=== PATIENT | female | born 1945 | race Caucasian/White ===

== ENCOUNTER → 2018-01-22 | Outpatient (CLI) | payer MEDICARE ==
--- NOTE | 2018-01-22 15:07 | XR ---
EXAMINATION TYPE: XR lumbosacral spine min 4V DATE OF EXAM: 01/22/2018 COMPARISON: NONE HISTORY: Thoracic and low back pain TECHNIQUE: Five-view lumbar spine FINDINGS: Facet degenerative changes are present. Vascular calcifications within the aorta. There is narrowing of disc height posteriorly at L3-L4. Milder posterior disc space narrowing is present L2-3 and L1-2. Vertebral body heights are preserved. Alignment is normal. IMPRESSION: 1. Degenerative disc changes mid lumbar spine
--- NOTE | 2018-01-22 15:09 | XR ---
EXAMINATION TYPE: XR thoracic spine complete DATE OF EXAM: 01/22/2018 COMPARISON: Rib study 08/04/2017 HISTORY: Thoracic spine pain TECHNIQUE: Three-view thoracic spine FINDINGS: There are 12 thoracic type vertebral bodies. The pedicles are intact. Disc heights are pres erved. There is mild wedge deformity of T7. This is not clearly identified on the July 2017 jun rison image. This was not present on the lateral chest film of 05/03/2013. Remaining vertebral body hei ghts are preserved. IMPRESSION: 1. Wedge deformity without posterior wall displacement T7. This may be an interval finding from 07/25.
== END | disposition home or self-care (01) ==
LOC: RADXRYALE 11:09
PROVIDERS: ATTEND Internal Medicine
DX: M43.8X4 Other specified deforming dorsopathies, thoracic region (principal); M47.816 Spondylosis without myelopathy or radiculopathy, lumbar region
CPT/HCPCS: 72072; 72110

== ENCOUNTER → 2018-02-10 | Outpatient (CLI) | payer MEDICARE ==
--- NOTE | 2018-02-10 14:30 | NM ---
EXAMINATION TYPE: NM bone scan whole body DATE OF EXAM: 02/10/2018 COMPARISON: 01/22/2018 thoracic and lumbar spine radiographs HISTORY: Thoracic compression deformity of T7. Back pain. Delayed whole-body scanning was performed following the injection of 22.9 mCi Tc 99m MDP. Images acq uired at the appropriate time interval post injection. FINDINGS: There is focal radiotracer uptake within the T7 vertebral body corresponding to the compression defor mity seen on the radiographs of 01/22/2018 representing an acute/subacute fracture. Additional focal u ptake is seen at the costochondral junction of the approximately ninth rib on the right and may relat e to costochondritis. Linear uptake along the tibia bilaterally can be seen in hypertrophic pulmonary osteoarthropathy. Symmetric uptake within the glenohumeral joints, sternoclavicular joints, acromioc lavicular joints, sacroiliac joints, hips, and knees are most commonly on a degenerative basis. Focal uptake within the left lateral L5 vertebral body is seen in the posterior images only. IMPRESSION: 1. Focal abnormal uptake at T7 corresponding to the compression deformity on the exam of 01/22/2018 re presenting an acute/subacute fracture. 2. Focal uptake at approximately the ninth costochondral cartilage on the right that may represent co stochondritis. 3. Mild focal uptake within the left lateral L5 vertebral body with no correlate on the lumbar spine radiograph of 01/22/2018. CT or MR could be considered if there is further clinical concern. 4. Mild symmetric degenerative changes of the appendicular skeleton. 5. Linear uptake of the tibia that can be seen in hypertrophic pulmonary osteoarthropathy.
== END | disposition home or self-care (01) ==
LOC: RADNMMAIN 09:56
PROVIDERS: ATTEND Physical Medicine & Rehabilitation
DX: R94.8 Abnormal results of function studies of other organs and systems (principal); M85.80 Other specified disorders of bone density and structure, unspecified site
CPT/HCPCS: 78306; A9503

== ENCOUNTER → 2018-09-02 | Outpatient (CLI) | payer MEDICARE ==
--- NOTE | 2018-09-06 13:49 | MM ---
Reason for exam: screening (asymptomatic). Last mammogram was performed 1 year and 1 month ago. History: Patient is postmenopausal. MG 3D Screening Mammo W/Cad Bilateral CC and MLO view(s) were taken. Prior study comparison: July 29, 2017, bilateral MG screening mammo w CAD. July 23, 2016, bilateral MG 3d screening mammo w/cad. There are scattered fibroglandular densities. Anterior asymetric density just below the retroareolar plane on the right appears to localize to the skin on 3D. Correlate for possible lateral mole. A 6 month follow up is recommended. ASSESSMENT: Probably benign, BI-RAD 3 RECOMMENDATION: Follow-up diagnostic mammogram of the right breast in 6 months. LYNN
== END | disposition home or self-care (01) ==
LOC: RADMAMWWP 13:05
PROVIDERS: ATTEND Internal Medicine
DX: Z12.31 Encounter for screening mammogram for malignant neoplasm of breast (principal)
CPT/HCPCS: 77063; 77067

== ENCOUNTER 2018-09-17 11:21 | Day surgery (SDC) | payer MEDICARE ==
[2018-09-15 13:48] VITALS: BMI 29.2
[~2018-09-17 11:21] MED LIST: LACTATED RINGERS 1,000 ML IV SCH; LIDOCAINE 1% 20 ML VIAL (10MG/ML) FOR IV START INTRADERMA PRN
[2018-09-17 12:23] VITALS: TEMP 97.2
[2018-09-17] MEDS ORDERED: PROPOFOL 10 MG/ML 20 ML VIAL IV ONE (13:03)
[2018-09-17] MEDS ORDERED: LIDOCAINE 1% INJ 10MG/ML (20 ML MDV) ONE (13:03)
--- NOTE | 2018-09-17 13:42 | P.PCN ---
Date of Procedure: 09/17/18 Procedure(s) Performed: Procedure: 1. Esophagogastroduodenoscopy and biopsy. 2. Total colonoscopy. Preoperative diagnosis: Epigastric pain and rectal bleeding. Postoperative diagnosis: 1. Sliding hiatal hernia with no obvious esophagitis or complicated reflux disease. 2. Mild antral gastritis. 3. Sigmoid diverticulosis with no evidence of acute diverticulitis or strictures. 4. Low- grade internal hemorrhoids with no bleeding at the time of this exam. Preparation: HalfLytely prep. Sedation: Was provided by anesthesia. Brief clinical history: The patient is a 73-year-old female who is scheduled for this evaluation for the above reasons. She may have had an upper endoscopy several years back but she had no prior colonoscopy. The bleeding is described as fresh bleeding and rectum. She reports epigastric pain and regurgitation kind symptoms especially when she bends. No weight loss or other alarm symptoms. Procedure: With the patient on her left lateral decubitus position and after informed consent and adequate sedation, I passed a Olympus-GIF age 190 video upper endoscope through the cricopharyngeus down the esophagus. GE junction was around 36-37 cm from the incisors and there was a sliding hiatal hernia measuring between 2 and 3 cm. There was no obvious esophagitis or complicated reflux disease. The endoscope was then passed into the stomach which was insufflated with air and inspected in detail including the retroflex view in the cardia. There was some mottling and erythema in the antrum but no ulcers or erosions. Pyloric channel, duodenal bulb, post bulbar area and descending duodenum appeared within normal limits. Because of her symptoms, I obtained biopsies from the duodenum, antrum and esophagus then the endoscope was withdrawn and I proceeded with the colonoscopy. Perianal area did not show any fissures or fistulas. There were no masses felt on digital rectal examination. The Olympus CFH 190 and video colonoscope was then inserted in the rectum in the usual fashion and advanced to the cecum. There were multiple diverticular orifices seen scattered in the sigmoid but I saw no evidence of acute diverticulitis or strictures. The mucosa appeared healthy. No polyps or tumors were seen. I retroflexed the endoscope in the rectum before the endoscope was withdrawn. Low-grade internal hemorrhoids were noted with no evidence of. The patient tolerated the procedure well. Plan: The patient was reassured. Will await biopsy results. Discussed dietary measures and local care for hemorrhoids. Further plans based on her course. She will follow-up with you as planned and would be happy to see in the office if needed.
[2018-09-17 13:56] VITALS: BP 146/99; PULSE 69; RESP 18
== END 2018-09-17 14:17 | disposition home or self-care (01) ==
LOC: ORWHC2ENDO 11:21
DX: K29.50 Unspecified chronic gastritis without bleeding (principal); K44.9 Diaphragmatic hernia without obstruction or gangrene; M19.90 Unspecified osteoarthritis, unspecified site; K20.9 Esophagitis, unspecified; K57.30 Diverticulosis of large intestine without perforation or abscess without bleeding; K64.8 Other hemorrhoids; J44.9 Chronic obstructive pulmonary disease, unspecified; I10 Essential (primary) hypertension; E78.5 Hyperlipidemia, unspecified; Z86.73 Personal history of transient ischemic attack (TIA), and cerebral infarction without residual deficits; Z79.899 Other long term (current) drug therapy
CPT/HCPCS: 88305; 45378; 43239; J2001; J2704

== ENCOUNTER → 2019-03-18 | Outpatient (CLI) | payer MEDICARE ==
--- NOTE | 2019-03-18 14:47 | MM ---
Reason for exam: follow-up at short interval from prior study. Last mammogram was performed 7 months ago. History: Patient is postmenopausal. Physical Findings: Nurse did not find any significant physical abnormalities on exam. MG 3D Diag Mammo W/Cad RT CC and MLO view(s) were taken of the right breast. Prior study comparison: September 02, 2018, bilateral MG 3d screening mammo w/cad. July 29, 2017, bilateral MG screening mammo w CAD. The breast tissue is heterogeneously dense. This may lower the sensitivity of mammography. Benign appearing calcifications in the right breast. Stable right inferior breast asymmetry at anterior depth, possibly present on more remote exams. These results were verbally communicated with the patient and result sheet given to the patient on 03/18/19. ASSESSMENT: Probably benign, BI-RAD 3 RECOMMENDATION: Follow-up diagnostic mammogram of both breasts in 6 months. Back on schedule.
== END | disposition home or self-care (01) ==
LOC: RADMAMWWP 12:27 → EEVIPCON 13:00
PROVIDERS: ATTEND Internal Medicine
DX: R92.8 Other abnormal and inconclusive findings on diagnostic imaging of breast (principal)
CPT/HCPCS: 77065; G0279; 77061

== ENCOUNTER → 2019-10-15 | Outpatient (CLI) | payer MEDICARE ==
--- NOTE | 2019-10-18 09:03 | MM ---
Reason for exam: additional evaluation requested from prior study. Last mammogram was performed 7 months ago. History: Patient is postmenopausal. Physical Findings: Nurse did not find any significant physical abnormalities on exam. MG 3D Diag Mammo W/Cad ALEJANDRA Bilateral CC and MLO view(s) were taken. Prior study comparison: March 18, 2019, right breast MG 3d diag mammo w/cad RT. September 02, 2018, bilateral MG 3d screening mammo w/cad. The breast tissue is almost entirely fat. Focal asymmetry right subareolar medially, stable. No significant new findings when compared with previous films. These results were verbally communicated with the patient and result sheet given to the patient on 10/15/19. ASSESSMENT: Benign, BI-RAD 2 RECOMMENDATION: Routine screening mammogram of both breasts in 1 year.
== END | disposition home or self-care (01) ==
LOC: RADMAMWWP 12:32
PROVIDERS: ATTEND Internal Medicine
DX: R92.8 Other abnormal and inconclusive findings on diagnostic imaging of breast (principal)
CPT/HCPCS: 77066; G0279; 77062

== ENCOUNTER → 2020-03-20 | Outpatient (CLI) | payer MEDICARE ==
--- NOTE | 2020-03-20 11:32 | XR ---
EXAMINATION TYPE: XR knee limited RT DATE OF EXAM: 03/20/2020 CLINICAL HISTORY: pain TECHNIQUE: Three views of the right knee are obtained. COMPARISON: None. FINDINGS: There is no acute fracture/dislocation. The tri-compartment joint spaces appear within no rmal limits. The overlying soft tissue appears unremarkable. IMPRESSION: There is no acute fracture or dislocation.ICD 10 NO FRACTURE, INITIAL EVALUATION
--- NOTE | 2020-03-20 11:32 | XR ---
EXAMINATION TYPE: XR facial bones complete DATE OF EXAM: 03/20/2020 HISTORY: Pain trauma TECHNIQUE: Three views of the facial bones are submitted. FINDINGS: There is fracture noted to involve the nasal bone at its tip. No evidence for significant d isplacement or fracture depression. No additional fractures identified. No air-fluid levels within th e sinuses. Soft tissues are radiographically intact. IMPRESSION: There is fracture noted to involve the nasal bone at its tip. No evidence for significant displacement or fracture depression.
== END ==
LOC: RADXRYALE 10:59
PROVIDERS: ATTEND Internal Medicine
DX: S02.2XXA Fracture of nasal bones, initial encounter for closed fracture (principal)
CPT/HCPCS: 70150

== ENCOUNTER → 2020-04-11 | Outpatient (CLI) | payer MEDICARE ==
--- NOTE | 2020-04-11 16:20 | XR ---
EXAMINATION TYPE: XR ribs LT w pa chest xray DATE OF EXAM: 04/11/2020 COMPARISON: 08/04/2017 left RIBS with chest radiograph HISTORY: Left lower rib pain after strain injury yesterday TECHNIQUE: Frontal view of the chest and 4 images of the left ribs were obtained. FINDINGS: The cardiomediastinal silhouette is within normal limits for size. There is no focal air sp pat opacity, pleural effusion, or pneumothorax. There is osseous demineralization which decreases sen sitivity. No evidence of displaced rib fracture. Degenerative changes of the left shoulder. IMPRESSION: No evidence of displaced rib fracture.
== END | disposition home or self-care (01) ==
LOC: RADXRYALE 13:09
PROVIDERS: ATTEND Internal Medicine
DX: R07.81 Pleurodynia (principal)

== ENCOUNTER 2020-11-06 09:55 | Inpatient (IN) | payer MEDICARE ==
[2020-11-06] MEDS ORDERED: ALBUTEROL HFA INHALER INHALATION STA (10:55)
[2020-11-06 11:48] LABS: ALT 59 U/L (4-34); African American GFR (CKD) >90 (>60 ml/min/1.73 sqM); Albumin 3.8 g/dL (3.5-5.0); Anion Gap 6 mmol/L; Blood Urea Nitrogen 5 mg/dL (7-17); Calcium 8.8 mg/dL (8.4-10.2); Carbon Dioxide 26 mmol/L (22-30); Chloride 98 mmol/L (98-107); Glucose 103 mg/dL (74-99); Non-African American GFR(CKD) >90 (>60 ml/min/1.73 sqM); Sodium 130 mmol/L (137-145); Total Protein 6.4 g/dL (6.3-8.2)
--- NOTE | 2020-11-06 11:52 | XR ---
EXAMINATION TYPE: XR knee complete LT, XR tibia fibula LT, XR ankle complete LT DATE OF EXAM: 11/06/2020 CLINICAL HISTORY: Fall injury with pain and swelling. TECHNIQUE: Three views of the left ankle and knee are obtained. 2 views left tibia and fibula. COMPARISON: None. FINDINGS: There is no acute fracture/dislocation evident in left knee. Mild to moderate tricompartme nt joint space loss greatest medial tibiofemoral compartment. No significant spurring. Mild to moder ate diffuse subcutaneous edema. No acute fracture or dislocation in the left tibia or fibula. Mild to moderate diffuse subcutaneous e bryanna greatest along the lateral and posterior aspects. No acute fracture or dislocation in the left ankle. Focal moderate soft tissue swelling over the late ral malleolus. Mild to moderate diffuse subcutaneous edema. Ankle mortise symmetry is preserved. Mode rate to large size inferior calcaneal spur noted. IMPRESSION: There is no acute fracture or dislocation in the left ankle, leg, or knee.
[2020-11-06 11:54] LABS: Appearance,Urine Clear (Clear); Bacteria,Urine Rare /hpf; Bilirubin,Urine Negative (Negative); Blood,Urine Small (Negative); Color,Urine Light Yellow; Glucose,Urine (UA) Negative (Negative); Ketones,Urine Negative (Negative); Leukocyte Esterase,Urine Large (Negative); Mucus,Urine Rare /hpf; Nitrite,Urine Negative (Negative); Protein,Urine Negative (Negative); RBC,Urine 5 /hpf (0-5); Specific Gravity,Urine 1.004 (1.001-1.035); Squamous Epithelial Cell,Urine 2 /hpf (0-4); Urobilinogen,Urine <2.0 mg/dL (<2.0); WBC,Urine 7 /hpf (0-5)
[2020-11-06 11:58] LABS: Basophils % (A) 0 %; Eosinophils # (A) 0.1 k/uL (0-0.7); Eosinophils % (A) 1 %; HCT 38.8 % (34.0-46.0); HGB 13.4 gm/dL (11.4-16.0); Lymphocytes # (A) 0.8 k/uL (1.0-4.8); Lymphocytes % (A) 9 %; MCH 36.7 pg (25.0-35.0); MCHC 34.5 g/dL (31.0-37.0); MCV 106.2 fL (80.0-100.0); Macrocytosis Moderate; Mean Platelet Volume 9.3; Monocytes # (A) 0.4 k/uL (0-1.0); Monocytes % (A) 4 %; Neutrophils # (A) 7.8 k/uL (1.3-7.7); Neutrophils % (A) 86 %; Platelet Count 251 k/uL (150-450); RBC 3.65 m/uL (3.80-5.40); RDW 13.2 % (11.5-15.5); WBC 9.1 k/uL (3.8-10.6)
[2020-11-06 12:01] LABS: AST 53 U/L (14-36); Alkaline Phosphatase 85 U/L (38-126); Potassium 4.3 mmol/L (3.5-5.1)
--- NOTE | 2020-11-06 12:15 | US ---
EXAMINATION TYPE: US venous doppler duplex LE LT DATE OF EXAM: 11/06/2020 10:56 AM COMPARISON: NONE CLINICAL HISTORY: swelling, pain, sob. fall and hit left side a week ago, SOB now and tender left leg , no h/o dvt SIDE PERFORMED: Left TECHNIQUE: The lower extremity deep venous system is examined utilizing real time linear array sonog barry with graded compression, doppler sonography and color-flow sonography. VESSELS IMAGED: Common Femoral Vein Deep Femoral Vein Greater Saphenous Vein * Femoral Vein Popliteal Vein Small Saphenous Vein * Proximal Calf Veins (* superficial vessels) Left Leg: Negative for DVT Grayscale, color doppler, spectral doppler imaging performed of the deep veins of the left lower extr emity. There is normal flow, compressibility, vascular waveforms. IMPRESSION: No US for acute DVT in left lower extremity.
--- NOTE | 2020-11-06 12:48 | CT ---
EXAMINATION TYPE: CT brain mayra hendricks con DATE OF EXAM: 11/06/2020 COMPARISON: NONE HISTORY: Fall injury with headache and neck pain. CT DLP: 1375.4 mGycm. Automated Exposure Control for Dose Reduction was Utilized. TECHNIQUE: CT scan of the head and cervical spine are performed without contrast. FINDINGS: There is no acute intracranial hemorrhage or midline shift identified. Mild to moderate v entricular and sulcal prominence. Moderate low attenuation in the deep and periventricular white layla er. Aneurysm clip causing artifact in the right middle cerebral artery distribution. The calvarium is intact. Mucosal thickening and dependent fluid right maxillary sinus .Remainder paranasal sinuses ar e clear. Globes are intact. Cervical spine is visualized in its entirety from C1 through upper thoracic levels and demonstrates s light grade 1 anterolisthesis C4 on C5 and grade 1 retrolisthesis C5 on C6 and C6 on C7 without evide nce of acute fracture or dislocation. Prevertebral soft tissue appears within normal limits. The C1 -C2 articulation is within normal limits on the coronal images. Vertebral body heights are maintained . Moderate disc space narrowing C5-C6 and C6-C7 levels. Posterior spur disc complexes efface the ante rior thecal sac at these levels. Axial images show multilevel facet degenerative changes contribute t o multilevel bilateral neural foraminal narrowing greatest at left C4-C5 level. Thyroid gland is with in normal limits. Emphysematous change visualized upper lungs without pneumothorax. IMPRESSION: 1. There is no acute fracture or dislocation evident in the cervical spine. 2. No acute intracranial hemorrhage or midline shift is seen.
--- NOTE | 2020-11-06 12:50 | ED ---
SOB HPI - General Chief Complaint: Shortness of Breath Stated Complaint: SOB/cough Time Seen by Provider: 11/06/20 10:10 Source: patient Mode of arrival: ambulatory Limitations: no limitations - History of Present Illness Initial Comments: Patient is a 75-year-old female with past medical history of COPD, CVA, hypertension who presents to the emergency department with reported shortness of breath for the past 4 days. Patient does report a fall approximately 3 weeks ago. States she fell hit her head and her right lower extremity. She is on anticoagulation. Saw her primary care physician however stated that no imaging was performed. She continued to have a mild headache and right leg pain. As of 4 days ago she began having shortness of breath, productive cough and bilateral rib pain secondary to coughing. She denies any fevers or chills. No sick contacts. His chest pain. No history of heart failure. Patient is on Coumadin however she does not know why. Unknown if she has a previous history of A. fib. She admits to swelling in the right lower extremity. No left lower extremity swelling. Denies changes in her bowel or bladder habits. Admits to decreased appetite. No other alleviating, precipitating or modifying factors - Related Data Home Medications Medication Instructions Recorded Confirmed LORazepam [Ativan] 0.5 mg PO BID PRN 09/15/18 11/06/20 Hydrochlorothiazide 12.5 mg PO DAILY 11/06/20 11/06/20 [hydroCHLOROthiazide] Losartan [Cozaar] 50 mg PO DAILY 11/06/20 11/06/20 Metoprolol Tartrate [Lopressor] 50 mg PO BID 11/06/20 11/06/20 Omeprazole 40 mg PO DAILY 11/06/20 11/06/20 Warfarin Sodium [Jantoven] 1.25 mg PO MOTH@2100 11/06/20 11/06/20 Warfarin [Coumadin] 2.5 mg PO SUTUWEFRSA@2100 11/06/20 11/06/20 tiZANidine [Zanaflex] 4 mg PO BID PRN 11/06/20 11/06/20 Allergies Allergy/AdvReac Type Severity Reaction Status Date / Time nisoldipine [From Sular] AdvReac Unknown Verified 11/06/20 12:48 Review of Systems ROS Statement: Those systems with pertinent positive or pertinent negative responses have been documented in the HPI. ROS Other: All systems not noted in ROS Statement are negative. 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 History of Any Multi-Drug Resistant Organisms: None Reported Past Surgical History: Cholecystectomy, Hysterectomy, Orthopedic Surgery, Tonsillectomy Additional Past Surgical History / Comment(s): coiled brain aneursym, juan foot surgery Past Anesthesia/Blood Transfusion Reactions: No Reported Reaction Past Psychological History: No Psychological Hx Reported Smoking Status: Current some day smoker Past Alcohol Use History: Daily Past Drug Use History: None Reported - Past Family History Mother Family Medical History: No Reported History Father Family Medical History: No Reported History Additional Family Medical History / Comment(s): Father was healthy. General Exam Limitations: no limitations General appearance: alert, in no apparent distress Head exam: Present: normocephalic, normal inspection, other (old stages of brusing left cheek) Eye exam: Present: normal appearance, PERRL, EOMI. Absent: scleral icterus, conjunctival injection, periorbital swelling ENT exam: Present: normal exam, mucous membranes moist Neck exam: Present: normal inspection. Absent: tenderness, meningismus, ly mphadenopathy Respiratory exam: Present: wheezes, decreased breath sounds. Absent: respiratory distress, rales, rhonchi, stridor Cardiovascular Exam: Present: regular rate, normal rhythm, normal heart sounds. Absent: systolic murmur, diastolic murmur, rubs, gallop, clicks GI/Abdominal exam: Present: soft, normal bowel sounds. Absent: distended, tenderness, guarding, rebound, rigid Extremities exam: Present: full ROM, tenderness (well healing ecchymosis and slight swelling to right calf - anterior aspect), normal capillary refill. Absent: pedal edema, joint swelling, calf tenderness Back exam: Present: normal inspection Neurological exam: Present: alert, oriented X3, CN II-XII intact Psychiatric exam: Present: normal affect, normal mood Skin exam: Present: warm, dry, intact, normal color. Absent: rash Course Vital Signs 11/06/20 11/06/20 11/06/20 10:08 12:00 13:00 Temperature 98.8 F Pulse Rate 78 122 H 141 H Respiratory 18 24 24 Rate Blood Pressure 156/91 143/99 115/90 O2 Sat by Pulse 96 90 L 95 Oximetry 11/06/20 11/06/20 11/06/20 13:30 14:00 14:45 Temperature Pulse Rate 121 H 111 H 108 H Respiratory 24 24 24 Rate Blood Pressure 161/102 155/64 129/65 O2 Sat by Pulse 96 94 L 95 Oximetry 11/06/20 11/06/20 11/06/20 16:00 17:00 17:39 Temperature 98.3 F 97.8 F Pulse Rate 108 H 108 H 121 H Respiratory 22 24 24 Rate Blood Pressure 138/82 125/65 156/89 O2 Sat by Pulse 98 96 95 Oximetry Medical Decision Making - Medical Decision Making Arrival patient was placed into room 23. A thorough history and physical exam was performed. As the patient is reporting to headaches and right leg pain after injury without evaluation I did recommend a CT of the brain and cervical spine. X-rays are also performed of the patient's right lower extremity. Laboratory studies are conducted. 12-lead EKG originally demonstrated a sinus rhythm. Laboratory studies were reviewed and demonstrated a supratherapeutic INR of 3.6. X-ray of the patient's right knee, ankle, tib-fib demonstrate no acute fractures. CT of the head and cervical rate no acute cranial process or cervical fractures. Venous Doppler study is negative lower extremity. CT of the chest is performed which demonstrates no evidence of acute pulmonary embolism. A small right greater than left pleural effusions. Bilateral moderate emphysematous changes. No no breathing treatments for the patient's she was given 40 mg of Lasix for her pleural effusions. Throughout her stay in the emergency department the patient does go into A. fib with RVR. She was given a dose of metoprolol. I did discuss results with the patient. Did recomm end admission for which the patient did agree to. I spoke with Dr. ferro who agreed to admit the patient. She is currently awaiting a bed on the floor - Lab Data Result diagrams: 11/08/20 07:09 11/08/20 07:09 Lab Results 11/06/20 11/06/20 11/06/20 Range/Units 10:55 11:15 11:15 WBC 9.1 (3.8-10.6) k/uL RBC 3.65 L (3.80-5.40) m/uL Hgb 13.4 (11.4-16.0) gm/dL Hct 38.8 (34.0-46.0) % MCV 106.2 H (80.0-100.0) fL MCH 36.7 H (25.0-35.0) pg MCHC 34.5 (31.0-37.0) g/dL RDW 13.2 (11.5-15.5) % Plt Count 251 (150-450) k/uL MPV 9.3 Neutrophils % 86 % Lymphocytes % 9 % Monocytes % 4 % Eosinophils % 1 % Basophils % 0 % Neutrophils # 7.8 H (1.3-7.7) k/uL Lymphocytes # 0.8 L (1.0-4.8) k/uL Monocytes # 0.4 (0-1.0) k/uL Eosinophils # 0.1 (0-0.7) k/uL Basophils # 0.0 (0-0.2) k/uL Macrocytosis Moderate PT (9.0-12.0) sec INR (<1.2) APTT (22.0-30.0) sec Sodium 130 L (137-145) mmol/L Potassium 4.3 (3.5-5.1) mmol/L Chloride 98 (98-107) mmol/L Carbon Dioxide 26 (22-30) mmol/L Anion Gap 6 mmol/L BUN 5 L (7-17) mg/dL Creatinine 0.50 L (0.52-1.04) mg/dL Est GFR (CKD-EPI)AfAm >90 (>60 ml/min/1.73 sqM) Est GFR (CKD-EPI)NonAf >90 (>60 ml/min/1.73 sqM) Glucose 103 H (74-99) mg/dL Plasma Lactic Acid Lio (0.7-2.0) mmol/L Calcium 8.8 (8.4-10.2) mg/dL Total Bilirubin 1.0 (0.2-1.3) mg/dL AST 53 H (14-36) U/L ALT 59 H (4-34) U/L Alkaline Phosphatase 85 (38-126) U/L Troponin I (0.000-0.034) ng/mL NT-Pro-B Natriuret Pep pg/mL Total Protein 6.4 (6.3-8.2) g/dL Albumin 3.8 (3.5-5.0) g/dL Urine Color Light Yellow Urine Appearance Clear (Clear) Urine pH 7.0 (5.0-8.0) Ur Specific [place] 1.004 (1.001-1.035) Urine Protein Negative (Negative) Urine Glucose (UA) Negative (Negative) Urine Ketones Negative (Negative) Urine Blood Small H (Negative) Urine Nitrite Negative (Negative) Urine Bilirubin Negative (Negative) Urine Urobilinogen <2.0 (<2.0) mg/dL Ur Leukocyte Esterase Large H (Negative) Urine RBC 5 (0-5) /hpf Urine WBC 7 H (0-5) /hpf Ur Squamous Epith Cells 2 (0-4) /hpf Urine Bacteria Rare H (None) /hpf Urine Mucus Rare H (None) /hpf Coronavirus (PCR) (Not Detectd) 11/06/20 11/06/20 11/06/20 Range/Units 11:15 11:15 11:15 WBC (3.8-10.6) k/uL RBC (3.80-5.40) m/uL Hgb (11.4-16.0) gm/dL Hct (34.0-46.0) % MCV (80.0-100.0) fL MCH (25.0-35.0) pg MCHC (31.0-37.0) g/dL RDW (11.5-15.5) % Plt Count (150-450) k/uL MPV Neutrophils % % Lymphocytes % % Monocytes % % Eosinophils % % Basophils % % Neutrophils # (1.3-7.7) k/uL Lymphocytes # (1.0-4.8) k/uL Monocytes # (0-1.0) k/uL Eosinophils # (0-0.7) k/uL Basophils # (0-0.2) k/uL Macrocytosis PT (9.0-12.0) sec INR (<1.2) APTT (22.0-30.0) sec Sodium (137-145) mmol/L Potassium (3.5-5.1) mmol/L Chloride (98-107) mmol/L Carbon Dioxide (22-30) mmol/L Anion Gap mmol/L BUN (7-17) mg/dL Creatinine (0.52-1.04) mg/dL Est GFR (CKD-EPI)AfAm (>60 ml/min/1.73 sqM) Est GFR (CKD-EPI)NonAf (>60 ml/min/1.73 sqM) Glucose (74-99) mg/dL Plasma Lactic Acid Lio 1.2 (0.7-2.0) mmol/L Calcium (8.4-10.2) mg/dL Total Bilirubin (0.2-1.3) mg/dL AST (14-36) U/L ALT (4-34) U/L Alkaline Phosphatase (38-126) U/L Troponin I <0.012 (0.000-0.034) ng/mL NT-Pro-B Natriuret Pep 2530 pg/mL Total Protein (6.3-8.2) g/dL Albumin (3.5-5.0) g/dL Urine Color Urine Appearance (Clear) Urine pH (5.0-8.0) Ur Specific [place] (1.001-1.035) Urine Protein (Negative) Urine Glucose (UA) (Negative) Urine Ketones (Negative) Urine Blood (Negative) Urine Nitrite (Negative) Urine Bilirubin (Negative) Urine Urobilinogen (<2.0) mg/dL Ur Leukocyte Esterase (Negative) Urine RBC (0-5) /hpf Urine WBC (0-5) /hpf Ur Squamous Epith Cells (0-4) /hpf Urine Bacteria (None) /hpf Urine Mucus (None) /hpf Coronavirus (PCR) (Not Detectd) 11/06/20 11/06/20 Range/Units 11:30 12:45 WBC (3.8-10.6) k/uL RBC (3.80-5.40) m/uL Hgb (11.4-16.0) gm/dL Hct (34.0-46.0) % MCV (80.0-100.0) fL MCH (25.0-35.0) pg MCHC (31.0-37.0) g/dL RDW (11.5-15.5) % Plt Count (150-450) k/uL MPV Neutrophils % % Lymphocytes % % Monocytes % % Eosinophils % % Basophils % % Neutrophils # (1.3-7.7) k/uL Lymphocytes # (1.0-4.8) k/uL Monocytes # (0-1.0) k/uL Eosinophils # (0-0.7) k/uL Basophils # (0-0.2) k/uL Macrocytosis PT 34.8 H (9.0-12.0) sec INR 3.6 H (<1.2) APTT 25.8 (22.0-30.0) sec Sodium (137-145) mmol/L Potassium (3.5-5.1) mmol/L Chloride (98-107) mmol/L Carbon Dioxide (22-30) mmol/L Anion Gap mmol/L BUN (7-17) mg/dL Creatinine (0.52-1.04) mg/dL Est GFR (CKD-EPI)AfAm (>60 ml/min/1.73 sqM) Est GFR (CKD-EPI)NonAf (>60 ml/min/1.73 sqM) Glucose (74-99) mg/dL Plasma Lactic Acid Lio (0.7-2.0) mmol/L Calcium (8.4-10.2) mg/dL Total Bilirubin (0.2-1.3) mg/dL AST (14-36) U/L ALT (4-34) U/L Alkaline Phosphatase (38-126) U/L Troponin I (0.000-0.034) ng/mL NT-Pro-B Natriuret Pep pg/mL Total Protein (6.3-8.2) g/dL Albumin (3.5-5.0) g/dL Urine Color Urine Appearance (Clear) Urine pH (5.0-8.0) Ur Specific [place] (1.001-1.035) Urine Protein (Negative) Urine Glucose (UA) (Negative) Urine Ketones (Negative) Urine Blood (Negative) Urine Nitrite (Negative) Urine Bilirubin (Negative) Urine Urobilinogen (<2.0) mg/dL Ur Leukocyte Esterase (Negative) Urine RBC (0-5) /hpf Urine WBC (0-5) /hpf Ur Squamous Epith Cells (0-4) /hpf Urine Bacteria (None) /hpf Urine Mucus (None) /hpf Coronavirus (PCR) Not Detected (Not Detectd) - EKG Data EKG Comments: EKG demonstrates sinus rhythm with PACs. Rate of 62. FL interval 146. QRS 76. QTC of 424. No acute ST segment elevations. Inverted T waves in 3 and aVF Repeat EKG at 1301 demonstrates A. fib with a rapid ventricular rate of 128. QRS 80. QTC of 47. Some ST depression in 2, 3, aVF as well as V4 through V6 Disposition Clinical Impression: Atrial fibrillation with RVR, Supratherapeutic INR, Acute respiratory insufficiency, Pleural effusion Disposition: ADMITTED IP TO THIS HOSP Condition: Serious Is patient prescribed a controlled substance at d/c from ED?: No Decision to Admit Reason: Admit from EC Decision Date: 11/06/20 Decision Time: 13:49
--- NOTE | 2020-11-06 12:52 | CT ---
EXAMINATION TYPE: CT chest angio for PE DATE OF EXAM: 11/06/2020 COMPARISON: None. HISTORY: Coughing and shortness of breath CT DLP: 294 mGycm Automated exposure control for dose reduction was used. CONTRAST: CT Chest for pulmonary embolism performed with with IV Contrast, patient injected with 70 mL of Isovu e 370. FINDINGS: LUNGS: Moderate underlying emphysematous change greatest in the upper lungs. Small right pleural effu germania and tiny left pleural effusion. Associated compressive atelectasis in the posterior right lung b ase. No suspicious nodules or masses. MEDIASTINUM: There is satisfactory enhancement of the pulmonary artery and its branches, there is no CT evidence for pulmonary embolism. Satisfactory enhancement of the aorta with mild calcified plaque in the arch and descending thoracic aorta. No aneurysm. No dissection. There are prominent bilateral hilar along with AP window and subcarinal lymph nodes. No cardiomegaly. No pericardial effusion is se en. Coronary artery calcification is present which is noted marker for underlying coronary artery di sease. Moderate biatrial dilatation. OTHER: Cholecystectomy clips noted localizer. Mild to moderate height loss or chronic compression ty pe fracture at T8 superior vertebra. IMPRESSION: No CT evidence for acute pulmonary embolism. Small right greater then left pleural effusi ons. Bilateral moderate emphysematous change.
[2020-11-06] MEDS ORDERED: METOPROLOL TARTRATE 5 MG/5 ML VIAL IVP STA (13:10)
[2020-11-06 13:45] LABS: INR 3.6 (<1.2); Partial Thromboplastin Time 25.8 sec (22.0-30.0); Prothrombin Time 34.8 sec (9.0-12.0)
[2020-11-06] MEDS ORDERED: methylPREDNISolone SOD SUCCI 125 MG/2 ML VIAL IV STA (13:48)
[2020-11-06] MEDS ORDERED: NALOXONE 0.4 MG/ML 1 ML VIAL IV PRN (13:50)
[2020-11-06] MEDS ORDERED: FUROSEMIDE 10 MG/ML 4 ML VIAL IV STA (13:50)
[2020-11-06] MEDS ORDERED: METOPROLOL TARTRATE 50 MG TAB PO SCH (14:17)
[2020-11-06] MEDS: IPRATROPIUM-ALBUTEROL 3 ML NEB INHALATION SCH ×2 (16:15→19:50)
[2020-11-06] MEDS: FAMOTIDINE 20 MG/2 ML VIAL IV SCH ×2 (16:39→21:00)
[2020-11-06] MEDS ORDERED: DILTIAZEM DRIP BOLUS FROM BAG 1 MG SOLN IV ONE (18:49)
[2020-11-06] MEDS: DILTIAZEM 125 MG in SODIUM CHLORIDE 0.9% 100 ML IV SCH (19:07)
[2020-11-06 20:27] LABS: Glucose,Whole Blood 195 mg/dL (75-99)
[2020-11-06] MEDS: METOPROLOL TARTRATE 25 MG TAB PO SCH (21:00)
[2020-11-06] MEDS ORDERED: AZITHROMYCIN 500 MG TAB PO STA (21:16)
--- NOTE | 2020-11-06 21:18 | P.HPIM ---
History of Present Illness this is a pleasant 75 years old female with past medical history ofCOPD, CVA/TIA, GI bleed, hypertension, hyperlipidemia, osteoarthritis, possible history of atrial fibrillation as she is on Coumadin although she cannot remember why she is on Coumadin.she is a patient of Dr. Bryant. Patient is somewhat confused and poor historian. Patient was disoriented to time, place and person, however she is awake, follows command. Patient states that she left her home and was walking for some distance before she got tired and held her legs are giving away so she decided to sit down and she could not remember then what happened. When I saw the patient she denies chest pain she is slightly tachypneic with some dyspnea. No abdominal pain or nausea vomiting. No headache or weakness. She states she follow up with information and referral director Dr. Manzanares although this is not sure. on admission she is tachycardic with heart rate 122-141, she is saturating 90- 96% on room air to 2 L oxygen via nasal cannula. labs show an unremarkable CBC, INR 3.6sodium 1:30, creatinine 0.5, glucose 103. liver enzymes are slightly elevated, AST is 53 and ALT 59 Urine analysis is suspicious for infection. Coronal virus not detected CT of the chest: No pulmonary embolism. Small bilateral pleural effusion, emphysema CT of the brain and cervical spine:no acute intracranial process,no cervical spinal fracture or dislocation Left leg ultrasound is negative for DVT Left leg x-ray showing no acute fracture or dislocation in the left ankle, leg or EKG showing normal sinus rhythm at [address] T changes in the emergency room patient was given Lasix 40 mg Review of Systems CONSTITUTIONAL: No fever, no malaise, no fatigue. HEENT: No recent visual problems or hearing problems. Denied any sore throat. CARDIOVASCULAR: No orthopnea, PND, no palpitations, no syncope. -PULMONARY: Patient does have dyspnea and coughing , no hemoptysis. GASTROINTESTINAL: No diarrhea, no nausea, no vomiting, no abdominal pain. Normoactive bowel sounds. NEUROLOGICAL: No headaches, no weakness, no numbness. HEMATOLOGICAL: Denies any bleeding or petechiae. GENITOURINARY: Denies any burning micturition, frequency, or urgency. MUSCULOSKELETAL/RHEUMATOLOGICAL: Denies any joint pain, swelling, or any muscle pain. ENDOCRINE: Denies any polyuria or polydipsia. 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 History of Any Multi-Drug Resistant Organisms: None Reported Past Surgical History: Cholecystectomy, Hysterectomy, Orthopedic Surgery, T onsillectomy Additional Past Surgical History / Comment(s): coiled brain aneursym, juan foot surgery Past Anesthesia/Blood Transfusion Reactions: No Reported Reaction Past Psychological History: No Psychological Hx Reported Smoking Status: Current some day smoker Past Alcohol Use History: Daily Past Drug Use History: None Reported - Past Family History Mother Family Medical History: No Reported History Father Family Medical History: No Reported History Additional Family Medical History / Comment(s): Father was healthy. Medications and Allergies Home Medications Medication Instructions Recorded Confirmed Type LORazepam [Ativan] 0.5 mg PO BID PRN 09/15/18 11/06/20 History Hydrochlorothiazide 12.5 mg PO DAILY 11/06/20 11/06/20 History [hydroCHLOROthiazide] Losartan [Cozaar] 50 mg PO DAILY 11/06/20 11/06/20 History Metoprolol Tartrate [Lopressor] 50 mg PO BID 11/06/20 11/06/20 History Omeprazole 40 mg PO DAILY 11/06/20 11/06/20 History Warfarin Sodium [Jantoven] 1.25 mg PO MOTH@209911/06/20 11/06/20 History Warfarin [Coumadin] 2.5 mg PO SUTUWEFRSA@2100 11/06/20 11/06/20 History tiZANidine [Zanaflex] 4 mg PO BID PRN 11/06/20 11/06/20 History Allergies Allergy/AdvReac Type Severity Reaction Status Date / Time nisoldipine [From Sular] AdvReac Unknown Verified 11/06/20 12:48 Physical Exam Vitals: Vital Signs Temp Pulse Resp BP Pulse Ox 11/06/20 13:30 121 H 24 161/102 96 11/06/20 13:00 141 H 24 115/90 95 11/06/20 12:00 122 H 24 143/99 90 L 11/06/20 10:08 98.8 F 78 18 156/91 96 Intake and Output 11/05/20 11/06/20 11/06/20 22:59 06:59 14:59 Other: Weight 74.843 kg GENERAL: The patient is alert and oriented x3, not in any acute distress. Well developed, well nourished. HEENT: Pupils are round and equally reacting to light. EOMI. No scleral icterus. No conjunctival pallor. Normocephalic, atraumatic. No pharyngeal erythema. No thyromegaly. CARDIOVASCULAR: S1 and S2 present. No murmurs, rubs, or gallops. -PULMONARY: Chest is clear to auscultation, bilateral scattered wheezing. De creased air entry on both sides ABDOMEN: Soft, nontender, nondistended, normoactive bowel sounds. No palpable organomegaly. MUSCULOSKELETAL: No joint swelling or deformity. EXTREMITIES: No cyanosis, clubbing, or pedal edema. NEUROLOGICAL: Gross neurological examination did not reveal any focal deficits. SKIN: No rashes. No petechiae Results CBC & Chem 7: 11/06/20 11:15 11/06/20 11:15 Labs: Abnormal Lab Results - Last 24 Hours (Table) 11/06/20 11/06/20 11/06/20 Range/Units 10:55 11:15 11:15 RBC 3.65 L (3.80-5.40) m/uL MCV 106.2 H (80.0-100.0) fL MCH 36.7 H (25.0-35.0) pg Neutrophils # 7.8 H (1.3-7.7) k/uL Lymphocytes # 0.8 L (1.0-4.8) k/uL PT (9.0-12.0) sec INR (<1.2) Sodium 130 L (137-145) mmol/L BUN 5 L (7-17) mg/dL Creatinine 0.50 L (0.52-1.04) mg/dL Glucose 103 H (74-99) mg/dL AST 53 H (14-36) U/L ALT 59 H (4-34) U/L Urine Blood Small H (Negative) Ur Leukocyte Esterase Large H (Negative) Urine WBC 7 H (0-5) /hpf Urine Bacteria Rare H (None) /hpf Urine Mucus Rare H (None) /hpf 11/06/20 Range/Units 12:45 RBC (3.80-5.40) m/uL MCV (80.0-100.0) fL MCH (25.0-35.0) pg Neutrophils # (1.3-7.7) k/uL Lymphocytes # (1.0-4.8) k/uL PT 34.8 H (9.0-12.0) sec INR 3.6 H (<1.2) Sodium (137-145) mmol/L BUN (7-17) mg/dL Creatinine (0.52-1.04) mg/dL Glucose (74-99) mg/dL AST (14-36) U/L ALT (4-34) U/L Urine Blood (Negative) Ur Leukocyte Esterase (Negative) Urine WBC (0-5) /hpf Urine Bacteria (None) /hpf Urine Mucus (None) /hpf Assessment and Plan Assessment: acute urinary tract infection Acute COPD exacerbation Metabolic encephalopathy secondary to above. Fall secondary to above A. fib with RVR coagulopathy with high INR secondary to Coumadin nicotine dependence hypertension Hyperlipidemia Primary osteoarthritis History of CVA 3 history of GI bleed Plan: this is a pleasant 75 years old female who presents with UTI, COPD exacerbation and A. fib and RVR.start ceftriaxone follow-up urine culture. Continue with Solu-Medrol.continue with breathing treatments and oxygen as needed.and zithromax continue with metoprolol and may consider Cardizem drip. Cardiology consult. Telemetry hold Coumadin for now and follow up INR Labs and medication were reviewed.. Continue same treatment. Continue with symptomatic treatment. Resume home medication. Monitor lytes and vitals. DVT and GI prophylaxis. Further recommendations depends on the clinical course of the patient DVT prophylaxis: on Coumadin GI Prophylaxis: Pepcid PT/OT: Pending Prognosis is guarded
[2020-11-06] MEDS: LORazepam 0.5 MG TAB PO PRN (22:02)
[2020-11-06] MEDS: methylPREDNISolone SOD SUCCI 40 MG/ML 1 ML VIAL IV SCH (23:15)
[2020-11-07 06:28] LABS: Basophils % (A) 0 %; Eosinophils % (A) 0 %; HCT 39.8 % (34.0-46.0); HGB 13.3 gm/dL (11.4-16.0); Lymphocytes # (A) 0.4 k/uL (1.0-4.8); Lymphocytes % (A) 7 %; MCH 35.4 pg (25.0-35.0); MCHC 33.4 g/dL (31.0-37.0); MCV 106.1 fL (80.0-100.0); Macrocytosis Moderate; Monocytes # (A) 0.1 k/uL (0-1.0); Monocytes % (A) 2 %; Neutrophils # (A) 5.8 k/uL (1.3-7.7); Neutrophils % (A) 91 %; Platelet Count 277 k/uL (150-450); RBC 3.75 m/uL (3.80-5.40); RDW 13.2 % (11.5-15.5); WBC 6.3 k/uL (3.8-10.6)
[2020-11-07 06:35] LABS: INR 3.8 (<1.2); Prothrombin Time 36.8 sec (9.0-12.0)
[2020-11-07 06:41] LABS: African American GFR (CKD) >90 (>60 ml/min/1.73 sqM); Anion Gap 7 mmol/L; Blood Urea Nitrogen 10 mg/dL (7-17); Calcium 8.7 mg/dL (8.4-10.2); Carbon Dioxide 30 mmol/L (22-30); Chloride 94 mmol/L (98-107); Glucose 161 mg/dL (74-99); Non-African American GFR(CKD) >90 (>60 ml/min/1.73 sqM); Potassium 3.3 mmol/L (3.5-5.1); Sodium 131 mmol/L (137-145)
[2020-11-07 06:54] LABS: Glucose,Whole Blood 147 mg/dL (75-99)
[2020-11-07] MEDS: IPRATROPIUM-ALBUTEROL 3 ML NEB INHALATION SCH ×4 (07:17→20:13)
[2020-11-07] MEDS: FORMOTEROL FUMARATE 20 MCG/2 ML NEBU INHALATION SCH ×2 (07:17→20:13)
--- NOTE | 2020-11-07 07:45 | ECHOF ---
Referral Reason:LV function MEASUREMENTS -------- HEIGHT: 157.5 cm WEIGHT: 74.8 kg BP: 129/65 RVIDd: 3.3 cm (< 3.3) IVSd: 1.3 cm (0.6 - 1.1) LVIDd: 3.8 cm (3.9 - 5.3) LVPWd: 1.4 cm (0.6 - 1.1) IVSs: 1.3 cm LVIDs: 3.2 cm LVPWs: 1.3 cm LAESV Index (A-L): 22.47 ml/m Ao Diam: 3.4 cm (2.0 - 3.7) AV Cusp: 1.3 cm (1.5 - 2.6) MV EXCURSION: 23.601 mm (> 18.000) MV EF SLOPE: 48 mm/s (70 - 150) EPSS: 0.5 cm RAP: 5.00 mmHg RVSP: 40.44 mmHg FINDINGS -------- Atrial fibrillation with RVR. This was a technically adequate study. The left ventricular size is normal. There is mild concentric left ventricular hypertrophy. Overa ll left ventricular systolic function is mild-moderately impaired with, an EF between 40 - 45 %. Le ft ventricular fillimg pressure cannot be estimated due to Atrial fibrillation. The right ventricle is mildly enlarged. Normal LA size by volume 22+/-6 ml/m2. The right atrium is mildly enlarged. Interatrial and interventricular septum intact. There is no evidence of aortic regurgitation. There is no evidence of aortic stenosis. Mild mitral regurgitation is present. [id number] tricuspid regurgitation present. There is mild to moderate pulmonary hypertension. The right ventricular systolic pressure, as measured by Doppler, is 40.44mmHg. The pulmonic valve was not well visualized. The aortic root size is normal. The inferior vena cava is mildly dilated. There is no pericardial effusion. CONCLUSIONS -------- 1. Atrial fibrillation. 2. The left ventricular size is normal. 3. There is mild concentric left ventricular hypertrophy. 4. Overall left ventricular systolic function is mild-moderately impaired with, an EF between 40 - 45 %. 5. The right ventricle is mildly enlarged. 6. The right atrium is mildly enlarged. 7. Mild mitral regurgitation is present. 8. [id number]-[id number] tricuspid regurgitation present. 9. There is mild to moderate pulmonary hypertension. 10. The right ventricular systolic pressure, as measured by Doppler, is 40.44mmHg. 11. The inferior vena cava is mildly dilated. ELEVATOR EXAMINER: Rosa Isela Tate RDCS
[2020-11-07] MEDS: DILTIAZEM 125 MG in SODIUM CHLORIDE 0.9% 100 ML IV SCH ×2 (08:39→21:17)
[2020-11-07] MEDS: AZITHROMYCIN 250 MG TAB PO SCH (08:40)
[2020-11-07] MEDS: METOPROLOL TARTRATE 25 MG TAB PO SCH ×2 (08:40→21:21)
[2020-11-07] MEDS: LOSARTAN 50 MG TAB PO SCH (08:40)
[2020-11-07] MEDS: methylPREDNISolone SOD SUCCI 40 MG/ML 1 ML VIAL IV SCH ×2 (08:40→16:56)
[2020-11-07] MEDS: FAMOTIDINE 20 MG/2 ML VIAL IV SCH (08:40)
[2020-11-07] MEDS ORDERED: LOSARTAN 50 MG TAB PO SCH (09:00)
[2020-11-07] MEDS ORDERED: FUROSEMIDE 10 MG/ML 4 ML VIAL IV STA (09:39)
[2020-11-07] MEDS ORDERED: POTASSIUM CHLORIDE ER 20 MEQ TAB.ER PO STA ×3 (09:40→23:18)
--- NOTE | 2020-11-07 10:43 | P.PN ---
Subjective this is a pleasant 75 years old female with past medical history ofCOPD, CVA/TIA, GI bleed, hypertension, hyperlipidemia, osteoarthritis, possible h istory of atrial fibrillation as she is on Coumadin although she cannot remember why she is on Coumadin.she is a patient of Dr. Bryant. 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 Patient presents because of increasing shortness of breath for the last 4 days associated with coughing and phlegm, bilateral lower cage pain anteriorly from coughing, no abdominal pain or nausea vomiting. No diarrhea. She denies d ysuria however she fell about 3 weeks ago. in ED Patient was noticed to be on Coumadin,she wasn't sure why she was on Coumadin however while she was in the emergency room she developed A. fib and RVR When I saw the patient she denies chest pain she is slightly tachypneic with some dyspnea. No abdominal pain or nausea vomiting. No headache or weakness. No fever on admission she is tachycardic with heart rate 122-141, she is saturating 90- 96% on room air to 2 L oxygen via nasal cannula. labs show an unremarkable CBC, INR 3.6sodium 1:30, creatinine 0.5, glucose 103. liver enzymes are slightly elevated, AST is 53 and ALT 59 Urine analysis is suspicious for infection. Coronal virus not detected CT of the chest: No pulmonary embolism. Small bilateral pleural effusion, emphysema CT of the brain and cervical spine:no acute intracranial process,no cervical spinal fracture or dislocation Left leg ultrasound is negative for DVT Left leg x-ray showing no acute fracture or dislocation in the left ankle, leg or EKG showing normal sinus rhythm at [address] T changes in the emergency room patient was given Lasix 40 mg 11/07/2020 Patient is more awake today, she looks calm and comfortable. She says that her breathing is better and okay even with exertion. She has less coughing spells. She still wheezing but is much better than yesterday, she is currently on Solu- Medrol 40 mg. Patient remains with A. fib and RVR, her Cardizem still running at 10 mg per hour. Her metoprolol increased from 50-75 mg twice a day by coin machine assembler. Her INR today is 3.8, so keep holding Coumadin. Echocardiogram showing ejection fraction of 40-45% with mild LVH Also she remains on ceftriaxone for her UTI. She denies dysuria however she has ongoing increase frequency of urination for a while. Urine cultures pending. Her fall 3 weeks ago could be related to her UTI. No dizziness or weakness today. low potassium is replaced Review of Systems CONSTITUTIONAL: No fever, no malaise, no fatigue. HEENT: No recent visual problems or hearing problems. Denied any sore throat. CARDIOVASCULAR: No orthopnea, PND, no palpitations, no syncope. -PULMONARY: Patient does have dyspnea and coughing , no hemoptysis. GASTROINTESTINAL: No diarrhea, no nausea, no vomiting, no abdominal pain. Normoactive bowel sounds. NEUROLOGICAL: No headaches, no weakness, no numbness. Active Medications Generic Name Dose Route Start Last Admin Trade Name Freq PRN Reason Stop Dose Admin Albuterol/Ipratropium 3 ml 11/06/20 16:00 11/07/20 07:17 Ipratropium-Albuterol 3 Ml Neb INHALATION 3 ml RT-QID LEELEE Administration Azithromycin 250 mg 11/07/20 09:00 11/07/20 08:40 Azithromycin 250 Mg Tab PO 250 mg DAILY LEELEE Administration Diltiazem HCl 120 mg 11/07/20 09:45 Diltiazem Cd 120 Mg Cap.Er.24h PO DAILY LEELEE Famotidine 20 mg 11/06/20 14:30 11/07/20 08:40 Famotidine 20 Mg/2 Ml Vial IV 20 mg Q12HR LEELEE Administration Formoterol Fumarate 20 mcg 11/07/20 08:00 11/07/20 07:17 Formoterol Fumarate 20 Mcg/2 Ml Nebu INHALATION 20 mcg RT-BID LEELEE Administration Guaifenesin/Dextromethorphan 10 ml 11/07/20 01:00 Guaifenesin-Dm 100-10mg/5ml 10 Ml Cup PO Q6H PRN Cough Ceftriaxone Sodium 1 gm/ 50 mls @ 100 mls/hr 11/06/20 14:30 11/07/20 08:40 Sodium Chloride IVPB 100 mls/hr Q24HR LEELEE Administration Diltiazem HCl 125 mg/ Sodium 125 mls @ 10 mls/hr 11/06/20 19:00 11/07/20 08:39 Chloride IV 10 mg/hr .[id number] LEELEE 10 mls/hr Administration 10 MG/HR Lorazepam 0.5 mg 11/06/20 21:12 11/06/20 22:02 Lorazepam 0.5 Mg Tab PO 0.5 mg BID PRN Administration Anxiety Losartan Potassium 50 mg 11/07/20 09:00 11/07/20 08:40 Losartan 50 Mg Tab PO 50 mg DAILY LEELEE Administration Methylprednisolone Sodium Succinate 40 mg 11/07/20 00:00 11/07/20 08:40 Methylprednisolone Sod Succi 40 Mg/Ml 1 Ml Vial IV 40 mg Q8HR LEELEE Administration Metoprolol Tartrate 75 mg 11/06/20 21:00 11/07/20 08:40 Metoprolol Tartrate 25 Mg Tab PO 75 mg BID LEELEE Administration Naloxone HCl 0.2 mg 11/06/20 13:50 Naloxone 0.4 Mg/Ml 1 Ml Vial IV Q2M PRN Opioid Reversal Objective - Vital Signs Vital signs: Vital Signs Temp 97.4 F L 11/06/20 20:00 Pulse 78 11/07/20 07:33 Resp 18 11/07/20 04:00 BP 110/72 11/07/20 04:00 Pulse Ox 96 11/07/20 07:17 Intake & Output 11/06/20 11/07/20 11/07/20 18:59 06:59 18:59 Intake Total 882 707 Balance 882 707 Weight 74.843 kg 76.7 kg Intake: Intake, IV Titration 125 Amount Diltiazem 125 mg In 125 Sodium Chloride 0.9% 100 ml @ 10 MG/HR 10 mls/hr IV .[id number] LEE[facility]E Rx#: [id number] Oral [phone] Other: # Voids 1 1 - Exam GENERAL: The patient is alert and oriented x3, not in any acute distress. Well developed, well nourished. HEENT: Pupils are round and equally reacting to light. EOMI. No scleral icterus. No conjunctival pallor. Normocephalic, atraumatic. No pharyngeal erythema. No thyromegaly. CARDIOVASCULAR: S1 and S2 present. No murmurs, rubs, or gallops. -PULMONARY: Chest is clear to auscultation, bilateral scattered wheezing. Decreased air entry on both sides. Improving ABDOMEN: Soft, nontender, nondistended, normoactive bowel sounds. No palpable organomegaly. MUSCULOSKELETAL: No joint swelling or deformity. EXTREMITIES: No cyanosis, clubbing, or pedal edema. NEUROLOGICAL: Gross neurological examination did not reveal any focal deficits. SKIN: No rashes. No petechiae - Labs CBC & Chem 7: 11/07/20 06:01 11/07/20 06:01 Labs: Abnormal Lab Results - Last 24 Hours (Table) 11/06/20 11/06/20 11/06/20 Range/Units 10:55 11:15 11:15 RBC 3.65 L (3.80-5.40) m/uL MCV 106.2 H (80.0-100.0) fL MCH 36.7 H (25.0-35.0) pg Neutrophils # 7.8 H (1.3-7.7) k/uL Lymphocytes # 0.8 L (1.0-4.8) k/uL PT (9.0-12.0) sec INR (<1.2) Sodium 130 L (137-145) mmol/L Potassium (3.5-5.1) mmol/L Chloride (98-107) mmol/L BUN 5 L (7-17) mg/dL Creatinine 0.50 L (0.52-1.04) mg/dL Glucose 103 H (74-99) mg/dL POC Glucose (mg/dL) (75-99) mg/dL AST 53 H (14-36) U/L ALT 59 H (4-34) U/L Urine Blood Small H (Negative) Ur Leukocyte Esterase Large H (Negative) Urine WBC 7 H (0-5) /hpf Urine Bacteria Rare H (None) /hpf Urine Mucus Rare H (None) /hpf 11/06/20 11/06/20 11/07/20 Range/Units 12:45 20:25 06:01 RBC 3.75 L (3.80-5.40) m/uL MCV 106.1 H (80.0-100.0) fL MCH 35.4 H (25.0-35.0) pg Neutrophils # (1.3-7.7) k/uL Lymphocytes # 0.4 L (1.0-4.8) k/uL PT 34.8 H (9.0-12.0) sec INR 3.6 H (<1.2) Sodium (137-145) mmol/L Potassium (3.5-5.1) mmol/L Chloride (98-107) mmol/L BUN (7-17) mg/dL Creatinine (0.52-1.04) mg/dL Glucose (74-99) mg/dL POC Glucose (mg/dL) 195 H (75-99) mg/dL AST (14-36) U/L ALT (4-34) U/L Urine Blood (Negative) Ur Leukocyte Esterase (Negative) Urine WBC (0-5) /hpf Urine Bacteria (None) /hpf Urine Mucus (None) /hpf 11/07/20 11/07/20 11/07/20 Range/Units 06:01 06:01 06:53 RBC (3.80-5.40) m/uL MCV (80.0-100.0) fL MCH (25.0-35.0) pg Neutrophils # (1.3-7.7) k/uL Lymphocytes # (1.0-4.8) k/uL PT 36.8 H (9.0-12.0) sec INR 3.8 H (<1.2) Sodium 131 L (137-145) mmol/L Potassium 3.3 L (3.5-5.1) mmol/L Chloride 94 L (98-107) mmol/L BUN (7-17) mg/dL Creatinine (0.52-1.04) mg/dL Glucose 161 H (74-99) mg/dL POC Glucose (mg/dL) 147 H (75-99) mg/dL AST (14-36) U/L ALT (4-34) U/L Urine Blood (Negative) Ur Leukocyte Esterase (Negative) Urine WBC (0-5) /hpf Urine Bacteria (None) /hpf Urine Mucus (None) /hpf Assessment and Plan Assessment: acute urinary tract infection Acute COPD exacerbation Metabolic encephalopathy secondary to above. Fall secondary to above A. fib with RVR coagulopathy with high INR secondary to Coumadin nicotine dependence hypertension Hyperlipidemia Primary osteoarthritis History of CVA 3 history of GI bleed Plan: this is a pleasant 75 years old female who presents with UTI, COPD exacerbation and A. fib and RVR.start ceftriaxone follow-up urine culture. Continue with Solu-Medrol.continue with breathing treatments and oxygen as needed.and zithromax continue with metoprolol and may consider Cardizem drip. Cardiology consult. Telemetry hold Coumadin for now and follow up INR Labs and medication were reviewed.. Continue same treatment. Continue with symptomatic treatment. Resume home medication. Monitor lytes and vitals. DVT and GI prophylaxis. Further recommendations depends on the clinical course of the patient DVT prophylaxis: on Coumadin GI Prophylaxis: Pepcid PT/OT: Pending Prognosis is guarded
--- NOTE | 2020-11-07 11:36 | P.CRDCN ---
History of Present Illness Consult date: 11/06/20 History of present illness: HISTORY OF PRESENT ILLNESS: This is a 75-year-old female with a past medical history significant for atrial fibrillation, COPD, hypertension, hyperlipidemia, CVA, osteoarthritis, and nicotine dependence. Patient follows in the office with Dr. Manzanares. We have been asked to see the patient in consultation for atrial fibrillation with RVR. Patient examined at the bedside. Patient states yesterday she was supposed to h ave her blood drawn at the cardiology office. She states she was not feeling well and decided to come to the ER instead. She is very vague in her description and just continues to state "I just did not feel well". Patient denies chest pain or pressure. She denies shortness of breath. Denies palpitations. EKG reveals sinus mechanism with T-wave inversions in inferior leads. Repeat EKG reveals atrial fibrillation with RVR. T-wave inversions in lead III and aVF. ST depression in lead II, V4 through V6 Chest CTA: Negative for acute pulmonary embolus and. Small right greater than left pleural effusions. Bilateral moderate emphysematous change. CT brain: No acute intracranial hemorrhage or midline shift visualized Lower extremity Doppler: Negative for DVT of left lower extremity Laboratory data: WBC 9.1. Hemoglobin 13.4. Platelet count 251. INR 3.6. Sodium 130. Potassium 4.3. BUN 5. Creatinine 0.50. Lactic acid 1.2. Troponin negative 2. BNP 2530. Current home cardiac medications include warfarin 1.25 mg Friday and and 2.5 mg Friday, metoprolol 50 mg twice a day, losartan 50 mg daily, and hydrochlorothiazide 12.5 mg daily Most recent echocardiogram obtained in August 2020 at the cardiology office reveals ejection fraction 55% with mild tricuspid regurgitation Repeat echocardiogram performed reveals ejection fraction 40-45%, [id number] tricuspid regurgitation, and moderate pulmonary hypertension. Patient underwent Lexiscan stress test in July 2020 at the cardiology office revealing fixed mid anterior wall defect consistent with soft tissue attenuation, similar findings were noted on the stress test performed in February 2019. Patient underwent a Holter monitor in August 2020 revealing episodes of nonsustained SVT that could represent atrial fibrillation REVIEW OF SYSTEMS: At the time of my exam: CONSTITUTIONAL: Denies fever or chills. HEENT: Denies blurred vision, vision changes, or eye pain. Denies hemoptysis CARDIOVASCULAR: Denies chest pain. Denies orthopnea. Denies PND. Denies palpitations RESPIRATORY: Denies shortness of breath. GASTROINTESTINAL: Denies abdominal pain. Denies nausea or vomiting. HEMATOLOGIC: Denies bleeding disorders. GENITOURINARY: Denies any blood in urine. SKIN: Denies pruitis. Denies rash. PHYSICAL EXAM: VITAL SIGNS: Reviewed. GENERAL: Well-developed in no acute distress. HEENT: Head is normocephalic. Pupils are equal, round. Sclerae anicteric. Mucous membranes of the mouth are moist. Neck supple. No JVD or thyromegaly LUNGS: Respirations even and unlabored. Lungs diminished bilaterally. HEART: Irregular rate and rhythm. S1 and S2 heard. ABDOMEN: Soft. Nondistended. Nontender. EXTREMITIES: Normal range of motion. No clubbing or cyanosis. Peripheral pulses intact. No lower extremity edema NEUROLOGIC: Awake and alert. Oriented x 3. ASSESSMENT: Acute urinary tract infection Acute COPD exacerbation Paroxysmal atrial fibrillation with RVR, on anticoagulation with Coumadin Supratherapeutic INR Hypertension Hyperlipidemia Hyponatremia PLAN: Increase metoprolol to 75 mg twice a day Discontinue Cardizem drip Start Cardizem CD 120 mg daily Give Lasix 40 mg IV 1 dose Replace potassium Hold hydrochlorothiazide secondary to hyponatremia Continue to hold Coumadin. Monitor INR. Further recommendations pending patient's course. Nurse practitioner note has been reviewed by physician. Signing provider agrees with the documented findings, assessment, and plan of care. 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 History of Any Multi-Drug Resistant Organisms: None Reported Past Surgical History: Cholecystectomy, Hysterectomy, Orthopedic Surgery, Tonsillectomy Additional Past Surgical History / Comment(s): coiled brain aneursym, juan foot surgery Past Anesthesia/Blood Transfusion Reactions: No Reported Reaction Past Psychological History: No Psychological Hx Reported Smoking Status: Current some day smoker Past Alcohol Use History: Daily Past Drug Use History: None Reported - Past Family History Mother Family Medical History: No Reported History Father Family Medical History: No Reported History Additional Family Medical History / Comment(s): Father was healthy. Medications and Allergies Home Medications Medication Instructions Recorded Confirmed Type LORazepam [Ativan] 0.5 mg PO BID PRN 09/15/18 11/06/20 History Hydrochlorothiazide 12.5 mg PO DAILY 11/06/20 11/06/20 History [hydroCHLOROthiazide] Losartan [Cozaar] 50 mg PO DAILY 11/06/20 11/06/20 History Metoprolol Tartrate [Lopressor] 50 mg PO BID 11/06/20 11/06/20 History Omeprazole 40 mg PO DAILY 11/06/20 11/06/20 History Warfarin Sodium [Jantoven] 1.25 mg PO MOTH@209911/06/20 11/06/20 History Warfarin [Coumadin] 2.5 mg PO SUTUWEFRSA@209911/06/20 11/06/20 History tiZANidine [Zanaflex] 4 mg PO BID PRN 11/06/20 11/06/20 History Allergies Allergy/AdvReac Type Severity Reaction Status Date / Time nisoldipine [From Sular] AdvReac Unknown Verified 11/06/20 12:48 Physical Exam Vitals: Vital Signs Temp Pulse Resp BP Pulse Ox 11/06/20 14:45 108 H 24 129/65 95 11/06/20 14:00 111 H 24 155/64 94 L 11/06/20 13:30 121 H 24 161/102 96 11/06/20 13:00 141 H 24 115/90 95 11/06/20 12:00 122 H 24 143/99 90 L 11/06/20 10:08 98.8 F 78 18 156/91 96 Intake and Output 11/06/20 11/06/20 11/06/20 06:59 14:59 22:59 Other: Weight 74.843 kg Results 11/07/20 06:01 11/07/20 06:01 Cardiac Enzymes 11/06/20 11/06/20 11/06/20 Range/Units 11:15 11:15 14:22 AST 53 H (14-36) U/L Troponin I <0.012 <0.012 (0.000-0.034) ng/mL Coagulation 11/06/20 Range/Units 12:45 PT 34.8 H (9.0-12.0) sec APTT 25.8 (22.0-30.0) sec CBC 11/06/20 Range/Units 11:15 WBC 9.1 (3.8-10.6) k/uL RBC 3.65 L (3.80-5.40) m/uL Hgb 13.4 (11.4-16.0) gm/dL Hct 38.8 (34.0-46.0) % Plt Count 251 (150-450) k/uL Comprehensive Metabolic Panel 11/06/20 Range/Units 11:15 Sodium 130 L (137-145) mmol/L Potassium 4.3 (3.5-5.1) mmol/L Chloride 98 (98-107) mmol/L Carbon Dioxide 26 (22-30) mmol/L BUN 5 L (7-17) mg/dL Creatinine 0.50 L (0.52-1.04) mg/dL Glucose 103 H (74-99) mg/dL Calcium 8.8 (8.4-10.2) mg/dL AST 53 H (14-36) U/L ALT 59 H (4-34) U/L Alkaline Phosphatase 85 (38-126) U/L Total Protein 6.4 (6.3-8.2) g/dL Albumin 3.8 (3.5-5.0) g/dL Current Medications Generic Name Dose Route Start Last Admin Trade Name Freq PRN Reason Stop Dose Admin Albuterol/Ipratropium 3 ml 11/06/20 16:00 Ipratropium-Albuterol 3 Ml Neb INHALATION RT-QID LEELEE Famotidine 20 mg 11/06/20 14:30 Famotidine 20 Mg/2 Ml Vial IV Q12HR [facility] Ceftriaxone Sodium 1 gm/ 50 mls @ 100 mls/hr 11/06/20 14:30 Sodium Chloride IVPB Q24HR [facility] Methylprednisolone Sodium Succinate 40 mg 11/07/20 00:00 Methylprednisolone Sod Succi 40 Mg/Ml 1 Ml Vial IV Q8HR LEELEE Metoprolol Tartrate 50 mg 11/06/20 14:17 Metoprolol Tartrate 50 Mg Tab PO BID LEELEE Naloxone HCl 0.2 mg 11/06/20 13:50 Naloxone 0.4 Mg/Ml 1 Ml Vial IV Q2M PRN Opioid Reversal Intake and Output 03/15/21 03/15/21 03/15/21 06:59 14:59 22:59 Other: Weight 74.843 kg Patient Weight 11/07/20 06:59 Weight 74.843 kg 11/06/20 11:15 11/06/20 11:15
[2020-11-07 12:05] LABS: Glucose,Whole Blood 129 mg/dL (75-99)
[2020-11-07] MEDS: DILTIAZEM CD 120 MG CAP.ER.24H PO SCH (16:56)
[2020-11-07 16:57] LABS: Glucose,Whole Blood 168 mg/dL (75-99)
[2020-11-07 19:56] LABS: Glucose,Whole Blood 153 mg/dL (75-99)
[2020-11-07] MEDS: FAMOTIDINE 20 MG TAB PO SCH (21:21)
[2020-11-07] MEDS: LORazepam 0.5 MG TAB PO PRN (21:24)
[2020-11-07] MEDS: guaiFENesin-DM 100-10MG/5ML 10 ML CUP PO PRN (21:24)
[2020-11-08] MEDS: methylPREDNISolone SOD SUCCI 40 MG/ML 1 ML VIAL IV SCH ×2 (00:19→09:46)
[2020-11-08] MEDS: guaiFENesin-DM 100-10MG/5ML 10 ML CUP PO PRN ×3 (04:02→21:57)
[2020-11-08 05:55] LABS: Glucose,Whole Blood 178 mg/dL (75-99)
[2020-11-08 07:31] LABS: Basophils % (A) 0 %; Eosinophils % (A) 0 %; HCT 41.2 % (34.0-46.0); HGB 13.5 gm/dL (11.4-16.0); Lymphocytes # (A) 0.5 k/uL (1.0-4.8); Lymphocytes % (A) 3 %; MCH 34.7 pg (25.0-35.0); MCHC 32.8 g/dL (31.0-37.0); Macrocytosis Moderate; Mean Platelet Volume 7.2; Monocytes # (A) 0.3 k/uL (0-1.0); Monocytes % (A) 2 %; Neutrophils # (A) 13.8 k/uL (1.3-7.7); Neutrophils % (A) 94 %; Platelet Count 355 k/uL (150-450); RBC 3.89 m/uL (3.80-5.40); WBC 14.6 k/uL (3.8-10.6)
[2020-11-08 07:41] LABS: African American GFR (CKD) >90 (>60 ml/min/1.73 sqM); Anion Gap 8 mmol/L; Blood Urea Nitrogen 15 mg/dL (7-17); Calcium 9.1 mg/dL (8.4-10.2); Carbon Dioxide 28 mmol/L (22-30); Chloride 96 mmol/L (98-107); Glucose 147 mg/dL (74-99); Magnesium 1.5 mg/dL (1.6-2.3); Non-African American GFR(CKD) 89 (>60 ml/min/1.73 sqM); Potassium 4.5 mmol/L (3.5-5.1); Sodium 132 mmol/L (137-145)
[2020-11-08 07:46] LABS: INR 2.8 (<1.2); Prothrombin Time 27.3 sec (9.0-12.0)
[2020-11-08] MEDS: IPRATROPIUM-ALBUTEROL 3 ML NEB INHALATION SCH ×4 (07:52→20:33)
[2020-11-08] MEDS: FORMOTEROL FUMARATE 20 MCG/2 ML NEBU INHALATION SCH ×2 (07:52→20:33)
[2020-11-08] MEDS: AZITHROMYCIN 250 MG TAB PO SCH (09:47)
[2020-11-08] MEDS: DILTIAZEM CD 120 MG CAP.ER.24H PO SCH (09:49)
[2020-11-08] MEDS: FAMOTIDINE 20 MG TAB PO SCH ×2 (09:50→21:00)
[2020-11-08] MEDS: METOPROLOL TARTRATE 25 MG TAB PO SCH ×2 (09:51→21:00)
[2020-11-08] MEDS: LOSARTAN 50 MG TAB PO SCH (09:51)
[2020-11-08] MEDS: MAGNESIUM SULFATE-D5W PMX 1 GM in DEXTROSE/WATER 1 100ML.BAG IVPB SCH ×2 (11:20→12:23)
[2020-11-08] MEDS: DILTIAZEM 125 MG in SODIUM CHLORIDE 0.9% 100 ML IV SCH (11:30)
[2020-11-08 11:44] LABS: Glucose,Whole Blood 154 mg/dL (75-99)
--- NOTE | 2020-11-08 14:14 | P.PN ---
Subjective Progress Note Date: 11/08/20 HISTORY OF PRESENT ILLNESS: 11/07/2020 This is a 75-year-old female with a past medical history significant for atrial fibrillation, COPD, hypertension, hyperlipidemia, CVA, osteoarthritis, and nicotine dependence. Patient follows in the office with Dr. Manzanares. We have been asked to see the patient in consultation for atrial fibrillation with RVR. Patient examined at the bedside. Patient states yesterday she was supposed to have her blood drawn at the cardiology office. She states she was not feeling well and decided to come to the ER instead. She is very vague in her description and just continues to state "I just did not feel well". Patient denies chest pain or pressure. She denies shortness of breath. Denies palpitations. EKG reveals sinus mechanism with T-wave inversions in inferior leads. Repeat EKG reveals atrial fibrillation with RVR. T-wave inversions in lead III and aVF. ST depression in lead II, V4 through V6 Chest CTA: Negative for acute pulmonary embolus and. Small right greater than left pleural effusions. Bilateral moderate emphysematous change. CT brain: No acute intracranial hemorrhage or midline shift visualized Lower extremity Doppler: Negative for DVT of left lower extremity Laboratory data: WBC 9.1. Hemoglobin 13.4. Platelet count 251. INR 3.6. Sodium 130. Potassium 4.3. BUN 5. Creatinine 0.50. Lactic acid 1.2. Troponin negative 2. BNP 2530. Current home cardiac medications include warfarin 1.25 mg Friday and a nd 2.5 mg Friday, metoprolol 50 mg twice a day, losartan 50 mg daily, and hydrochlorothiazide 12.5 mg daily Most recent echocardiogram obtained in August 2020 at the cardiology office reveals ejection fraction 55% with mild tricuspid regurgitation Repeat echocardiogram performed reveals ejection fraction 40-45%, [id number] tricuspid regurgitation, and moderate pulmonary hypertension. Patient underwent Lexiscan stress test in July 2020 at the cardiology office revealing fixed mid anterior wall defect consistent with soft tissue attenuation, similar findings were noted on the stress test performed in February 2019. Patient underwent a Holter monitor in August 2020 revealing episodes of nonsustained SVT that could represent atrial fibrillation 11/08/2020 Patient examined this morning at the bedside. She denies chest pain or pressure. She denies shortness of breath. She remains in atrial fibrillation. Heart rate ranging between 90 and 110. INR 2.8 today. PHYSICAL EXAM: VITAL SIGNS: Reviewed. GENERAL: Well-developed in no acute distress. HEENT: Head is normocephalic. Pupils are equal, round. Sclerae anicteric. Mucous membranes of the mouth are moist. Neck supple. No JVD or thyromegaly LUNGS: Respirations even and unlabored. Lungs diminished bilaterally with expiratory wheezing noted. HEART: Irregular rate and rhythm. S1 and S2 heard. ABDOMEN: Soft. Nondistended. Nontender. EXTREMITIES: Normal range of motion. No clubbing or cyanosis. Peripheral pulses intact. No lower extremity edema NEUROLOGIC: Awake and alert. Oriented x 3. ASSESSMENT: Acute urinary tract infection Acute COPD exacerbation Paroxysmal atrial fibrillation with RVR, on anticoagulation with Coumadin Supratherapeutic INR, resolved Hypertension Hyperlipidemia Hyponatremia PLAN: Continue telemetry monitoring Continue current dose of metoprolol Increase Cardizem CD to 180 mg daily Resume Coumadin. Monitor INR Sodium is improving. Resume low-dose hydrochlorothiazide Further recommendations pending patient's course Nurse practitioner note has been reviewed by physician. Signing provider agrees with the documented findings, assessment, and plan of care. Objective - Vital Signs Vital signs: Vital Signs Temp 98.1 F 11/08/20 11:42 Pulse 90 11/08/20 11:42 Resp 20 11/08/20 11:42 BP 144/83 11/08/20 11:42 Pulse Ox 99 11/08/20 11:42 Intake & Output 11/07/20 11/08/20 11/08/20 18:59 06:59 18:59 Intake Total 1187 660 720 Balance 1187 660 720 Weight 77.2 kg Intake: Intake, IV Titration 125 Amount Diltiazem 125 mg In 125 Sodium Chloride 0.9% 100 ml @ 10 MG/HR 10 mls/hr IV .[id number] [facility] Rx#: [id number] Oral 1062 [id number] Other: # Voids 2 1 1 # Bowel Movements 1 - Labs CBC & Chem 7: 11/08/20 07:09 11/08/20 07:09 Labs: Abnormal Lab Results - Last 24 Hours (Table) 11/07/20 11/07/20 11/08/20 Range/Units 16:34 19:54 05:54 WBC (3.8-10.6) k/uL MCV (80.0-100.0) fL Neutrophils # (1.3-7.7) k/uL Lymphocytes # (1.0-4.8) k/uL PT (9.0-12.0) sec INR (<1.2) Sodium (137-145) mmol/L Chloride (98-107) mmol/L Glucose (74-99) mg/dL POC Glucose (mg/dL) 168 H 153 H 178 H (75-99) mg/dL Magnesium (1.6-2.3) mg/dL 11/08/20 11/08/20 11/08/20 Range/Units 07:09 07:09 07:09 WBC 14.6 H (3.8-10.6) k/uL MCV 106.0 H (80.0-100.0) fL Neutrophils # 13.8 H (1.3-7.7) k/uL Lymphocytes # 0.5 L (1.0-4.8) k/uL PT 27.3 H (9.0-12.0) sec INR 2.8 H (<1.2) Sodium 132 L (137-145) mmol/L Chloride 96 L (98-107) mmol/L Glucose 147 H (74-99) mg/dL POC Glucose (mg/dL) (75-99) mg/dL Magnesium 1.5 L (1.6-2.3) mg/dL 11/08/20 Range/Units 11:43 WBC (3.8-10.6) k/uL MCV (80.0-100.0) fL Neutrophils # (1.3-7.7) k/uL Lymphocytes # (1.0-4.8) k/uL PT (9.0-12.0) sec INR (<1.2) Sodium (137-145) mmol/L Chloride (98-107) mmol/L Glucose (74-99) mg/dL POC Glucose (mg/dL) 154 H (75-99) mg/dL Magnesium (1.6-2.3) mg/dL Microbiology - Last 24 Hours (Table) 11/06/20 10:55 Urine Culture - Final Urine,Voided 11/06/20 16:20 Blood Culture - Preliminary Blood No Growth after 24 hours 11/06/20 16:35 Blood Culture - Preliminary Blood No Growth after 24 hours
[2020-11-08] MEDS ORDERED: Magnesium Replacement Protocol 1 EACH MISC MISCELLANE PRN (15:32)
--- NOTE | 2020-11-08 15:35 | P.PN ---
Subjective this is a pleasant 75 years old female with past medical history ofCOPD, CVA/TIA, GI bleed, hypertension, hyperlipidemia, osteoarthritis, possible h istory of atrial fibrillation as she is on Coumadin although she cannot remember why she is on Coumadin.she is a patient of Dr. Bryant. her health services rn is . Patient presents because of increasing shortness of breath for the last 4 days associated with coughing and phlegm, bilateral lower cage pain anteriorly from coughing, no abdominal pain or nausea vomiting. No diarrhea. She denies d ysuria however she fell about 3 weeks ago. in ED Patient was noticed to be on Coumadin,she wasn't sure why she was on Coumadin however while she was in the emergency room she developed A. fib and RVR When I saw the patient she denies chest pain she is slightly tachypneic with some dyspnea. No abdominal pain or nausea vomiting. No headache or weakness. No fever on admission she is tachycardic with heart rate 122-141, she is saturating 90- 96% on room air to 2 L oxygen via nasal cannula. labs show an unremarkable CBC, INR 3.6sodium 1:30, creatinine 0.5, glucose 103. liver enzymes are slightly elevated, AST is 53 and ALT 59 Urine analysis is suspicious for infection. Coronal virus not detected CT of the chest: No pulmonary embolism. Small bilateral pleural effusion, emphysema CT of the brain and cervical spine:no acute intracranial process,no cervical spinal fracture or dislocation Left leg ultrasound is negative for DVT Left leg x-ray showing no acute fracture or dislocation in the left ankle, leg or EKG showing normal sinus rhythm at [address] T changes in the emergency room patient was given Lasix 40 mg 11/07/2020 Patient is more awake today, she looks calm and comfortable. She says that her breathing is better and okay even with exertion. She has less coughing spells. She still wheezing but is much better than yesterday, she is currently on Solu- Medrol 40 mg. Patient remains with A. fib and RVR, her Cardizem still running at 10 mg per hour. Her metoprolol increased from 50-75 mg twice a day by health services rn. Her INR today is 3.8, so keep holding Coumadin. Echocardiogram showing ejection fraction of 40-45% with mild LVH Also she remains on ceftriaxone for her UTI. She denies dysuria however she has ongoing increase frequency of urination for a while. Urine cultures pending. Her fall 3 weeks ago could be related to her UTI. No dizziness or weakness today. low potassium is replaced 11/08/2020 Patient today is doing better, she actually was asking to be discharged home today because she says that she is back to her baseline. However health services rn wanted to monitor her for another day because of increasing the dose of Cardizem to 180 mg daily. She has some leukocytosis but she is on steroids. Her INR today is 2.8 and we can resume her Coumadin she takes alternatively 2.5 and 1.5 mg Low magnesium replaced per protocol Urine culture showing no growth.Discontinue ceftriaxone as patient finished her treatment, she is status post 3 doses. Continue Zithromax for her COPD Objective - Vital Signs Vital signs: Vital Signs Temp 98.1 F 11/08/20 11:42 Pulse 90 11/08/20 11:42 Resp 20 11/08/20 11:42 BP 144/83 11/08/20 11:42 Pulse Ox 99 11/08/20 11:42 Intake & Output 11/07/20 11/08/20 11/08/20 18:59 06:59 18:59 Intake Total 4147 278 9543 Balance 1589 996 3872 Weight 77.2 kg Intake: Intake, IV Titration 125 Amount Diltiazem 125 mg In 125 Sodium Chloride 0.9% 100 ml @ 10 MG/HR 10 mls/hr IV .[id number] [facility] Rx#: [id number] Oral [id number] Other: # Voids 2 1 2 # Bowel Movements 1 - Exam GENERAL: The patient is alert and oriented x3, not in any acute distress. Well developed, well nourished. HEENT: Pupils are round and equally reacting to light. EOMI. No scleral icterus. No conjunctival pallor. Normocephalic, atraumatic. No pharyngeal erythema. No thyromegaly. CARDIOVASCULAR: S1 and S2 present. No murmurs, rubs, or gallops. -PULMONARY: Chest is clear to auscultation, bilateral scattered wheezing. Decreased air entry on both sides. Improving ABDOMEN: Soft, nontender, nondistended, normoactive bowel sounds. No palpable organomegaly. MUSCULOSKELETAL: No joint swelling or deformity. EXTREMITIES: No cyanosis, clubbing, or pedal edema. NEUROLOGICAL: Gross neurological examination did not reveal any focal deficits. SKIN: No rashes. No petechiae - Labs CBC & Chem 7: 11/08/20 07:09 11/08/20 07:09 Labs: Abnormal Lab Results - Last 24 Hours (Table) 11/07/20 11/07/20 11/08/20 Range/Units 16:34 19:54 05:54 WBC (3.8-10.6) k/uL MCV (80.0-100.0) fL Neutrophils # (1.3-7.7) k/uL Lymphocytes # (1.0-4.8) k/uL PT (9.0-12.0) sec INR (<1.2) Sodium (137-145) mmol/L Chloride (98-107) mmol/L Glucose (74-99) mg/dL POC Glucose (mg/dL) 168 H 153 H 178 H (75-99) mg/dL Magnesium (1.6-2.3) mg/dL 11/08/20 11/08/20 11/08/20 Range/Units 07:09 07:09 07:09 WBC 14.6 H (3.8-10.6) k/uL MCV 106.0 H (80.0-100.0) fL Neutrophils # 13.8 H (1.3-7.7) k/uL Lymphocytes # 0.5 L (1.0-4.8) k/uL PT 27.3 H (9.0-12.0) sec INR 2.8 H (<1.2) Sodium 132 L (137-145) mmol/L Chloride 96 L (98-107) mmol/L Glucose 147 H (74-99) mg/dL POC Glucose (mg/dL) (75-99) mg/dL Magnesium 1.5 L (1.6-2.3) mg/dL 11/08/20 Range/Units 11:43 WBC (3.8-10.6) k/uL MCV (80.0-100.0) fL Neutrophils # (1.3-7.7) k/uL Lymphocytes # (1.0-4.8) k/uL PT (9.0-12.0) sec INR (<1.2) Sodium (137-145) mmol/L Chloride (98-107) mmol/L Glucose (74-99) mg/dL POC Glucose (mg/dL) 154 H (75-99) mg/dL Magnesium (1.6-2.3) mg/dL Microbiology - Last 24 Hours (Table) 11/06/20 10:55 Urine Culture - Final Urine,Voided 11/06/20 16:20 Blood Culture - Preliminary Blood No Growth after 24 hours 11/06/20 16:35 Blood Culture - Preliminary Blood No Growth after 24 hours Assessment and Plan Assessment: acute urinary tract infection Acute COPD exacerbation Metabolic encephalopathy secondary to above. Fall secondary to above A. fib with RVR coagulopathy with high INR secondary to Coumadin nicotine dependence hypertension Hyperlipidemia Primary osteoarthritis History of CVA 3 history of GI bleed Plan: this is a pleasant 75 years old female who presents with UTI, COPD exacerbation and A. fib and RVR.start ceftriaxone follow-up urine culture. Continue with Solu-Medrol.continue with breathing treatments and oxygen as needed.and zithromax continue with metoprolol and may consider Cardizem drip. Cardiology consult. Telemetry hold Coumadin for now and follow up INR Labs and medication were reviewed.. Continue same treatment. Continue with symptomatic treatment. Resume home medication. Monitor lytes and vitals. DVT and GI prophylaxis. Further recommendations depends on the clinical course of the patient DVT prophylaxis: on Coumadin GI Prophylaxis: Pepcid PT/OT: Pending Prognosis is guarded
[2020-11-08] MEDS: predniSONE 20 MG TAB PO SCH (15:41)
[2020-11-08 16:50] LABS: Glucose,Whole Blood 150 mg/dL (75-99)
[2020-11-08] MEDS ORDERED: WARFARIN 1.25 MG TAB PO ONE (18:00)
[2020-11-08 20:38] LABS: Glucose,Whole Blood 204 mg/dL (75-99)
[2020-11-08] MEDS ORDERED: WARFARIN 2.5 MG TAB PO SCH (21:00)
[2020-11-08] MEDS: LORazepam 0.5 MG TAB PO PRN (21:00)
[2020-11-09 06:22] LABS: Glucose,Whole Blood 135 mg/dL (75-99)
[2020-11-09 07:56] LABS: Basophils % (A) 0 %; Eosinophils % (A) 0 %; HGB 13.7 gm/dL (11.4-16.0); Lymphocytes # (A) 0.4 k/uL (1.0-4.8); Lymphocytes % (A) 3 %; MCH 35.6 pg (25.0-35.0); MCHC 32.7 g/dL (31.0-37.0); MCV 108.7 fL (80.0-100.0); Macrocytosis Moderate; Mean Platelet Volume 7.3; Monocytes # (A) 0.4 k/uL (0-1.0); Monocytes % (A) 3 %; Neutrophils # (A) 12.9 k/uL (1.3-7.7); Neutrophils % (A) 93 %; Platelet Count 300 k/uL (150-450); RBC 3.86 m/uL (3.80-5.40); RDW 13.3 % (11.5-15.5); WBC 13.8 k/uL (3.8-10.6)
[2020-11-09 08:12] LABS: Magnesium 2.3 mg/dL (1.6-2.3); Potassium 4.3 mmol/L (3.5-5.1)
[2020-11-09 08:17] LABS: INR 1.9 (<1.2); Prothrombin Time 18.3 sec (9.0-12.0)
[2020-11-09] MEDS: IPRATROPIUM-ALBUTEROL 3 ML NEB INHALATION SCH ×4 (08:38→19:16)
[2020-11-09] MEDS: FORMOTEROL FUMARATE 20 MCG/2 ML NEBU INHALATION SCH ×2 (08:38→19:16)
--- NOTE | 2020-11-09 08:57 | XR ---
EXAMINATION TYPE: XR chest 2V DATE OF EXAM: 11/09/2020 COMPARISON: 04/11/2020 HISTORY: 75-year-old female increased cough TECHNIQUE: PA and lateral views FINDINGS: Heart normal size. Atherosclerotic calcifications. Increased interstitial prominence. Peribronchial c uffing throughout. Trace left effusion. IMPRESSION: 1. Increased interstitial density and peribronchial cuffing throughout. Correlate for bronchitis or u ncontrolled asthma. 2. Trace left pleural effusion.
[2020-11-09] MEDS: FAMOTIDINE 20 MG TAB PO SCH ×2 (09:48→20:02)
[2020-11-09] MEDS: LOSARTAN 50 MG TAB PO SCH (09:48)
[2020-11-09] MEDS: METOPROLOL TARTRATE 25 MG TAB PO SCH ×2 (09:48→20:02)
[2020-11-09] MEDS: hydroCHLOROthiazide 12.5 MG CAP PO SCH (09:48)
[2020-11-09] MEDS: AZITHROMYCIN 250 MG TAB PO SCH (09:48)
[2020-11-09] MEDS: DILTIAZEM CD 180 MG CAP.ER.24H PO SCH (09:48)
[2020-11-09] MEDS: predniSONE 20 MG TAB PO SCH (09:48)
[2020-11-09] MEDS: guaiFENesin-DM 100-10MG/5ML 10 ML CUP PO PRN (12:00)
[2020-11-09 12:01] LABS: Glucose,Whole Blood 202 mg/dL (75-99)
[2020-11-09] MEDS ORDERED: FUROSEMIDE 10 MG/ML 4 ML VIAL IV STA (12:04)
--- NOTE | 2020-11-09 14:06 | P.PN ---
Subjective Progress Note Date: 11/09/20 HISTORY OF PRESENT ILLNESS: 11/07/2020 This is a 75-year-old female with a past medical history significant for atrial fibrillation, COPD, hypertension, hyperlipidemia, CVA, osteoarthritis, and nicotine dependence. Patient follows in the office with Dr. Manzanares. We have been asked to see the patient in consultation for atrial fibrillation with RVR. Patient examined at the bedside. Patient states yesterday she was supposed to have her blood drawn at the cardiology office. She states she was not feeling well and decided to come to the ER instead. She is very vague in her description and just continues to state "I just did not feel well". Patient denies chest pain or pressure. She denies shortness of breath. Denies palpitations. EKG reveals sinus mechanism with T-wave inversions in inferior leads. Repeat EKG reveals atrial fibrillation with RVR. T-wave inversions in lead III and aVF. ST depression in lead II, V4 through V6 Chest CTA: Negative for acute pulmonary embolus and. Small right greater than left pleural effusions. Bilateral moderate emphysematous change. CT brain: No acute intracranial hemorrhage or midline shift visualized Lower extremity Doppler: Negative for DVT of left lower extremity Laboratory data: WBC 9.1. Hemoglobin 13.4. Platelet count 251. INR 3.6. Sodium 130. Potassium 4.3. BUN 5. Creatinine 0.50. Lactic acid 1.2. Troponin negative 2. BNP 2530. Current home cardiac medications include warfarin 1.25 mg Friday and a nd 2.5 mg Friday, metoprolol 50 mg twice a day, losartan 50 mg daily, and hydrochlorothiazide 12.5 mg daily Most recent echocardiogram obtained in August 2020 at the cardiology office reveals ejection fraction 55% with mild tricuspid regurgitation Repeat echocardiogram performed reveals ejection fraction 40-45%, [id number] tricuspid regurgitation, and moderate pulmonary hypertension. Patient underwent Lexiscan stress test in July 2020 at the cardiology office revealing fixed mid anterior wall defect consistent with soft tissue attenuation, similar findings were noted on the stress test performed in February 2019. Patient underwent a Holter monitor in August 2020 revealing episodes of nonsustained SVT that could represent atrial fibrillation 11/08/2020 Patient examined this morning at the bedside. She denies chest pain or pressure. She denies shortness of breath. She remains in atrial fibrillation. Heart rate ranging between 90 and 110. INR 2.8 today. 11/09/2020 Patient examined this morning at the bedside. She denies chest pain or press ure. Denies shortness of breath. She remains in atrial fibrillation with controlled ventricular rate. PHYSICAL EXAM: VITAL SIGNS: Reviewed. GENERAL: Well-developed in no acute distress. HEENT: Head is normocephalic. Pupils are equal, round. Sclerae anicteric. Mucous membranes of the mouth are moist. Neck supple. No JVD or thyromegaly LUNGS: Respirations even and unlabored. Lungs diminished bilaterally. HEART: Irregular rate and rhythm. S1 and S2 heard. ABDOMEN: Soft. Nondistended. Nontender. EXTREMITIES: Normal range of motion. No clubbing or cyanosis. Peripheral p ulses intact. No lower extremity edema NEUROLOGIC: Awake and alert. Oriented x 3. ASSESSMENT: Acute urinary tract infection Acute COPD exacerbation Paroxysmal atrial fibrillation with RVR, on anticoagulation with Coumadin Supratherapeutic INR, resolved Hypertension Hyperlipidemia Hyponatremia PLAN: Continue current cardiac medications Patient is stable for discharge home today from a cardiac standpoint. We will sign off. Please reconsult if needed. Nurse practitioner note has been reviewed by physician. Signing provider agrees with the documented findings, assessment, and plan of care. Objective - Vital Signs Vital signs: Vital Signs Temp 97.8 F 11/09/20 12:01 Pulse 79 11/09/20 12:01 Resp 16 11/09/20 12:01 BP 153/97 11/09/20 12:01 Pulse Ox 97 11/09/20 12:01 Intake & Output 11/08/20 11/09/20 11/09/20 18:59 06:59 18:59 Intake Total 1902 240 480 Balance 1902 240 480 Intake: Oral 1902 240 480 Other: # Voids 2 1 1 # Bowel Movements 1 - Labs CBC & Chem 7: 11/09/20 07:31 11/09/20 07:31 Labs: Abnormal Lab Results - Last 24 Hours (Table) 11/08/20 11/08/20 11/09/20 Range/Units 16:49 20:37 06:21 WBC (3.8-10.6) k/uL MCV (80.0-100.0) fL MCH (25.0-35.0) pg Neutrophils # (1.3-7.7) k/uL Lymphocytes # (1.0-4.8) k/uL PT (9.0-12.0) sec INR (<1.2) POC Glucose (mg/dL) 150 H 204 H 135 H (75-99) mg/dL 11/09/20 11/09/20 11/09/20 Range/Units 07:31 07:31 12:00 WBC 13.8 H (3.8-10.6) k/uL MCV 108.7 H (80.0-100.0) fL MCH 35.6 H (25.0-35.0) pg Neutrophils # 12.9 H (1.3-7.7) k/uL Lymphocytes # 0.4 L (1.0-4.8) k/uL PT 18.3 H (9.0-12.0) sec INR 1.9 H (<1.2) POC Glucose (mg/dL) 202 H (75-99) mg/dL Microbiology - Last 24 Hours (Table) 11/06/20 16:20 Blood Culture - Preliminary Blood No Growth after 48 hours 11/06/20 16:35 Blood Culture - Preliminary Blood No Growth after 48 hours 11/06/20 10:55 Urine Culture - Final Urine,Voided
[2020-11-09] MEDS ORDERED: Potassium Replacement Protocol 1 EACH MISC MISCELLANE PRN (15:56)
[2020-11-09 16:49] LABS: Potassium 3.7 mmol/L (3.5-5.1)
[2020-11-09 16:57] LABS: Glucose,Whole Blood 146 mg/dL (75-99)
[2020-11-09] MEDS: AMOXIC-POT CLAV 875-125MG 1 EACH TAB PO SCH ×2 (17:06→20:02)
[2020-11-09] MEDS ORDERED: WARFARIN 2.5 MG TAB PO ONE (18:00)
[2020-11-09 20:27] LABS: Glucose,Whole Blood 132 mg/dL (75-99)
[2020-11-10 06:31] LABS: Glucose,Whole Blood 103 mg/dL (75-99)
[2020-11-10] MEDS: FORMOTEROL FUMARATE 20 MCG/2 ML NEBU INHALATION SCH (07:39)
[2020-11-10] MEDS: IPRATROPIUM-ALBUTEROL 3 ML NEB INHALATION SCH ×3 (07:39→15:59)
[2020-11-10 07:57] LABS: Basophils % (A) 0 %; Eosinophils % (A) 0 %; Lymphocytes % (A) 9 %; MCH 35.9 pg (25.0-35.0); MCHC 33.4 g/dL (31.0-37.0); MCV 107.7 fL (80.0-100.0); Macrocytosis Moderate; Mean Platelet Volume 7.2; Monocytes # (A) 0.6 k/uL (0-1.0); Monocytes % (A) 6 %; Neutrophils # (A) 9.2 k/uL (1.3-7.7); Neutrophils % (A) 84 %; Platelet Count 294 k/uL (150-450); RDW 13.1 % (11.5-15.5)
--- NOTE | 2020-11-10 07:58 | XR ---
EXAMINATION TYPE: XR chest 1V DATE OF EXAM: 11/10/2020 COMPARISON: 11/04/2020 INDICATION: Follow up, short of breath TECHNIQUE: Single frontal view of the chest is obtained. FINDINGS: The heart size is normal. There is a focal eventration of the left diaphragm. The pulmonary vasculature is normal. There is blunting of the left costophrenic angle. Small pleural effusion may be present. IMPRESSION: 1. Blunting of left costophrenic angle. Correlate for small pleural effusion.
[2020-11-10 08:18] LABS: INR 1.8 (<1.2); Prothrombin Time 17.6 sec (9.0-12.0)
[2020-11-10] MEDS: hydroCHLOROthiazide 12.5 MG CAP PO SCH (08:50)
[2020-11-10] MEDS: FAMOTIDINE 20 MG TAB PO SCH (08:51)
[2020-11-10] MEDS: METOPROLOL TARTRATE 25 MG TAB PO SCH (08:51)
[2020-11-10] MEDS: LOSARTAN 50 MG TAB PO SCH (08:51)
[2020-11-10] MEDS: AZITHROMYCIN 250 MG TAB PO SCH (08:51)
[2020-11-10] MEDS: AMOXIC-POT CLAV 875-125MG 1 EACH TAB PO SCH (08:51)
[2020-11-10] MEDS: DILTIAZEM CD 180 MG CAP.ER.24H PO SCH (08:51)
[2020-11-10] MEDS: predniSONE 20 MG TAB PO SCH (08:51)
[2020-11-10 09:44] VITALS: TEMP 98.7
[2020-11-10] MEDS ORDERED: LOSARTAN 50 MG TAB PO SCH (10:00)
[2020-11-10] MEDS ORDERED: FUROSEMIDE 10 MG/ML 4 ML VIAL IV STA (10:15)
--- NOTE | 2020-11-10 10:20 | P.PN ---
Subjective this is a pleasant 75 years old female with past medical history ofCOPD, CVA/TIA, GI bleed, hypertension, hyperlipidemia, osteoarthritis, possible h istory of atrial fibrillation as she is on Coumadin although she cannot remember why she is on Coumadin.she is a patient of Dr. Bryant. her shore working supervisor is . Patient presents because of increasing shortness of breath for the last 4 days associated with coughing and phlegm, bilateral lower cage pain anteriorly from coughing, no abdominal pain or nausea vomiting. No diarrhea. She denies d ysuria however she fell about 3 weeks ago. in ED Patient was noticed to be on Coumadin,she wasn't sure why she was on Coumadin however while she was in the emergency room she developed A. fib and RVR When I saw the patient she denies chest pain she is slightly tachypneic with some dyspnea. No abdominal pain or nausea vomiting. No headache or weakness. No fever on admission she is tachycardic with heart rate 122-141, she is saturating 90- 96% on room air to 2 L oxygen via nasal cannula. labs show an unremarkable CBC, INR 3.6sodium 1:30, creatinine 0.5, glucose 103. liver enzymes are slightly elevated, AST is 53 and ALT 59 Urine analysis is suspicious for infection. Coronal virus not detected CT of the chest: No pulmonary embolism. Small bilateral pleural effusion, emphysema CT of the brain and cervical spine:no acute intracranial process,no cervical spinal fracture or dislocation Left leg ultrasound is negative for DVT Left leg x-ray showing no acute fracture or dislocation in the left ankle, leg or EKG showing normal sinus rhythm at [address] T changes in the emergency room patient was given Lasix 40 mg 11/07/2020 Patient is more awake today, she looks calm and comfortable. She says that her breathing is better and okay even with exertion. She has less coughing spells. She still wheezing but is much better than yesterday, she is currently on Solu- Medrol 40 mg. Patient remains with A. fib and RVR, her Cardizem still running at 10 mg per hour. Her metoprolol increased from 50-75 mg twice a day by shore working supervisor. Her INR today is 3.8, so keep holding Coumadin. Echocardiogram showing ejection fraction of 40-45% with mild LVH Also she remains on ceftriaxone for her UTI. She denies dysuria however she has ongoing increase frequency of urination for a while. Urine cultures pending. Her fall 3 weeks ago could be related to her UTI. No dizziness or weakness today. low potassium is replaced 11/08/2020 Patient today is doing better, she actually was asking to be discharged home today because she says that she is back to her baseline. However shore working supervisor wanted to monitor her for another day because of increasing the dose of Cardizem to 180 mg daily. She has some leukocytosis but she is on steroids. Her INR today is 2.8 and we can resume her Coumadin she takes alternatively 2.5 and 1.5 mg Low magnesium replaced per protocol Urine culture showing no growth.Discontinue ceftriaxone as patient finished her treatment, she is status post 3 doses. Continue Zithromax for her COPD 11/09/2020 Today patient is more tachypneic and dyspneic, also she is coughing. Repeat chest x-ray showing bronchitis. Other than that she denies chest pain and shore working supervisor and cleared her for discharge after heart rate is better controlled with Cardizem increased yesterday to 180 mg daily. Patient was asking to be discharged since yesterday however with her worsening respiratory status compared to yesterday she is not therefore be discharged today. I gave her 1 dose of Lasix 40 mg today and tomorrow and repeat chest x- ray tomorrow morning Resume home dose of Coumadin. Her INR 1.9 today and she was prescribed Coumadin 2.5 mg. At home she takes 2.5 mg every day except Friday and she takes 1.25 mg Possible discharge in 24-48 hours if she keeps improved Objective - Vital Signs Vital signs: Vital Signs Temp 97.8 F 11/09/20 12:01 Pulse 79 11/09/20 12:01 Resp 16 11/09/20 12:01 BP 153/97 11/09/20 12:01 Pulse Ox 97 11/09/20 12:01 Intake & Output 11/08/20 11/09/20 11/09/20 18:59 06:59 18:59 Intake Total 1902 240 480 Balance 1902 240 480 Intake: Oral 1902 240 480 Other: # Voids 2 1 1 # Bowel Movements 1 - Exam GENERAL: The patient is alert and oriented x3, not in any acute distress. Well developed, well nourished. HEENT: Pupils are round and equally reacting to light. EOMI. No scleral icterus. No conjunctival pallor. Normocephalic, atraumatic. No pharyngeal erythema. No thyromegaly. CARDIOVASCULAR: S1 and S2 present. No murmurs, rubs, or gallops. -PULMONARY: Chest is clear to auscultation, bilateral scattered wheezing. Decreased air entry on both sides. Improving ABDOMEN: Soft, nontender, nondistended, normoactive bowel sounds. No palpable organomegaly. MUSCULOSKELETAL: No joint swelling or deformity. EXTREMITIES: No cyanosis, clubbing, or pedal edema. NEUROLOGICAL: Gross neurological examination did not reveal any focal deficits. SKIN: No rashes. No petechiae - Labs CBC & Chem 7: 11/10/20 07:23 11/09/20 16:22 Labs: Abnormal Lab Results - Last 24 Hours (Table) 11/08/20 11/08/20 11/09/20 Range/Units 16:49 20:37 06:21 WBC (3.8-10.6) k/uL MCV (80.0-100.0) fL MCH (25.0-35.0) pg Neutrophils # (1.3-7.7) k/uL Lymphocytes # (1.0-4.8) k/uL PT (9.0-12.0) sec INR (<1.2) POC Glucose (mg/dL) 150 H 204 H 135 H (75-99) mg/dL 11/09/20 11/09/20 11/09/20 Range/Units 07:31 07:31 12:00 WBC 13.8 H (3.8-10.6) k/uL MCV 108.7 H (80.0-100.0) fL MCH 35.6 H (25.0-35.0) pg Neutrophils # 12.9 H (1.3-7.7) k/uL Lymphocytes # 0.4 L (1.0-4.8) k/uL PT 18.3 H (9.0-12.0) sec INR 1.9 H (<1.2) POC Glucose (mg/dL) 202 H (75-99) mg/dL Microbiology - Last 24 Hours (Table) 11/06/20 16:20 Blood Culture - Preliminary Blood No Growth after 48 hours 11/06/20 16:35 Blood Culture - Preliminary Blood No Growth after 48 hours 11/06/20 10:55 Urine Culture - Final Urine,Voided Assessment and Plan Assessment: acute urinary tract infection, resolved. Urine culture showing no growth Acute COPD exacerbation with bronchitis Metabolic encephalopathy secondary to above. Improved Fall secondary to above A. fib with RVR, rate is controlled Cardiomyopathy with ejection fraction 40-45% coagulopathy with high INR secondary to Coumadin nicotine dependence hypertension Hyperlipidemia Primary osteoarthritis History of CVA 3 history of GI bleed Plan: this is a pleasant 75 years old female who presents with COPD exacerbation and A. fib and RVR. discontinue ceftriaxone for negative urine culture. Continue with prednisone.continue with breathing treatments and oxygen as needed.and zithromax. Given Lasix. Monitor creatinine and electrolytes. Consider di scharge patient on Lasix as needed continue with metoprolol and Cardizem per Cardiology consult. Continue with Coumadin for now and follow up INR Labs and medication were reviewed.. Continue same treatment. Continue with symptomatic treatment. Resume home medication. Monitor lytes and vitals. DVT and GI prophylaxis. Further recommendations depends on the clinical course of the patient DVT prophylaxis: on Coumadin GI Prophylaxis: Pepcid
[2020-11-10 12:10] LABS: Glucose,Whole Blood 108 mg/dL (75-99)
[2020-11-10 13:56] VITALS: BP 138/94; PULSE 91; RESP 18
[2020-11-10] MEDS ORDERED: WARFARIN 2 MG TAB PO ONE (18:00)
== END 2020-11-10 16:24 | disposition home or self-care (01) | DRG 308 ==
LOC: EC 09:55 → EEVIPCON 09:55 → 3SCARD 13:50
PROVIDERS: ADMIT Internal Medicine; ATTEND Internal Medicine
DX: I48.0 Paroxysmal atrial fibrillation (principal); G93.41 Metabolic encephalopathy; J90 Pleural effusion, not elsewhere classified; E87.1 Hypo-osmolality and hyponatremia; N39.0 Urinary tract infection, site not specified; I42.9 Cardiomyopathy, unspecified; I27.20 Pulmonary hypertension, unspecified; J43.9 Emphysema, unspecified; Z20.822 Contact with and (suspected) exposure to COVID-19; I07.1 Rheumatic tricuspid insufficiency; I10 Essential (primary) hypertension; R79.1 Abnormal coagulation profile; T45.515A Adverse effect of anticoagulants, initial encounter; E78.5 Hyperlipidemia, unspecified; M19.91 Primary osteoarthritis, unspecified site; F17.200 Nicotine dependence, unspecified, uncomplicated; Z79.01 Long term (current) use of anticoagulants; Z79.899 Other long term (current) drug therapy; Z86.73 Personal history of transient ischemic attack (TIA), and cerebral infarction without residual deficits; Z87.19 Personal history of other diseases of the digestive system; Z90.49 Acquired absence of other specified parts of digestive tract; Z90.710 Acquired absence of both cervix and uterus; Z87.42 Personal history of other diseases of the female genital tract; Z90.89 Acquired absence of other organs; Z98.890 Other specified postprocedural states; W19.XXXA Unspecified fall, initial encounter; Z88.8 Allergy status to other drugs, medicaments and biological substances
CPT/HCPCS: 36415; 70450; 71045; 71046; 71275; 72125; 80048; 80053; 81001; 83605; 83735; 83880; 84132; 84145; 84484; 85025; 85610; 85730; 87040; 87086; 87635; 93005; 93306; 94640; 94760; 96365; 96375; 99285

== ENCOUNTER → 2020-12-08 | Outpatient (CLI) | payer MEDICARE ==
--- NOTE | 2020-12-11 14:27 | MM ---
Reason for exam: screening (asymptomatic). Last mammogram was performed 1 year and 2 months ago. History: Patient is postmenopausal. Physical Findings: A clinical breast exam by your physician is recommended on an annual basis and results should be correlated with mammographic findings. MG 3D Screening Mammo W/Cad Bilateral CC and MLO view(s) were taken. Prior study comparison: October 15, 2019, bilateral MG 3d diag mammo w/cad ALEJANDRA. March 18, 2019, right breast MG 3d diag mammo w/cad RT. There are scattered fibroglandular densities. There are benign appearing round linear calcifications bilaterally. There is no discrete abnormality. ASSESSMENT: Benign, BI-RAD 2 RECOMMENDATION: Routine screening mammogram of both breasts in 1 year.
== END | disposition home or self-care (01) ==
LOC: RADMAMWWP 10:44
PROVIDERS: ATTEND Internal Medicine
DX: Z12.31 Encounter for screening mammogram for malignant neoplasm of breast (principal); Z78.0 Asymptomatic menopausal state
CPT/HCPCS: 77063; 77067

== ENCOUNTER 2021-03-22 05:50 | Day surgery (SDC) | payer MEDICARE ==
[2021-03-20 11:42] VITALS: BMI 30.2
[2021-03-22] MEDS ORDERED: NITROGLYCERIN SL TABS 0.4 MG TAB SUBLINGUAL PRN (05:58)
[2021-03-22] MEDS ORDERED: ASPIRIN 325 MG TAB PO STA (05:58)
[2021-03-22] MEDS ORDERED: ALPRAZolam 0.25 MG TAB PO PRN (05:58)
[2021-03-22] MEDS ORDERED: HEPARIN SODIUM,PORCINE 2,500 UNIT in SODIUM CHLORIDE 0.9% 250 ML IRRIGATION PRN (05:58)
[2021-03-22] MEDS ORDERED: ALPRAZolam 0.5 MG TAB PO PRN (05:58)
[2021-03-22] MEDS ORDERED: SODIUM CHLORIDE 0.9% 1,000 ML in EMPTY BAG 1 BAG IV ONE (05:58)
[2021-03-22] MEDS ORDERED: HEPARIN SODIUM,PORCINE 10,000 UNIT in SODIUM CHLORIDE 0.9% 1,000 ML IRRIGATION PRN (05:58)
[2021-03-22] MEDS ORDERED: SODIUM CHLORIDE 0.9% 1,000 ML IV ONE (06:50)
[2021-03-22 06:53] VITALS: RESP 16; TEMP 97.6
[2021-03-22 07:01] LABS: INR 1.7 (<1.2); Prothrombin Time 16.9 sec (9.0-12.0)
[2021-03-22] MEDS ORDERED: LIDOCAINE 1% INJ 10MG/ML (20 ML MDV) ONE (07:11)
[2021-03-22] MEDS ORDERED: VERAPAMIL 2.5 MG/ML 2 ML AMP ONE (07:11)
[2021-03-22] MEDS ORDERED: HEPARIN SODIUM 1,000 UN/ML (10ML VL) ONE (07:11)
[2021-03-22] MEDS ORDERED: fentaNYL (PF) 50 MCG/ML 2 ML AMP ONE (07:12)
[2021-03-22] MEDS ORDERED: fentaNYL (PF) 50 MCG/ML 2 ML AMP IV ONE (07:45)
[2021-03-22] MEDS ORDERED: LIDOCAINE 1% INJ 10MG/ML (20 ML MDV) SQ ONE (07:48)
[2021-03-22] MEDS ORDERED: VERAPAMIL SYRINGE (5 MG/10 ML) INTRAARTER ONE (07:50)
[2021-03-22] MEDS ORDERED: MIDAZOLAM 2 MG/2 ML VIAL IV ONE (07:57)
[2021-03-22] MEDS ORDERED: HEPARIN SODIUM 1,000 UN/ML (10ML VL) IV ONE (07:57)
[2021-03-22] MEDS ORDERED: IOPAMIDOL-370 100ML BTL INJ ONE (08:01)
[2021-03-22] MEDS ORDERED: RX INFO: IV CONTRAST WAS GIVEN 1 EACH MISC MISCELLANE PRN (08:12)
[2021-03-22] MEDS ORDERED: SODIUM CHLORIDE 0.9% 1,000 ML IV SCH (08:15)
--- NOTE | 2021-03-22 09:11 | CC ---
CARDIAC CATHETERIZATION REPORT Mrs. Arevalo is a 75-year-old female known history of hypertension, hyperlipidemia, and chronic tobacco use, history of chronic persistent atrial fibrillation who presented with symptoms of progressive dyspnea, had an abnormal myocardial perfusion imaging. In view of that, recommendation made regarding cardiac catheterization. The procedure as well as the risks and the complications were discussed with the patient who is in full understanding and agreement. PROCEDURE: Patient was brought to prosthetic lab technician in the fasting semi-sedated state after receiving fentanyl and Benadryl and achieving moderate conscious sedated state. Using Xylocaine anesthesia and Seldinger technique, a 6-German sheath was introduced in the right radial artery. Selective right and left coronary angiography performed using 5-German 3 and one half bend right and left Kiana catheter. Multiple views of the coronary arteries including hemiaxial views obtained. Following that the right Kiana catheter was used to cross the aortic valve. The left ventricular end-diastolic pressure was calculated. Following that, catheter and sheath were removed. Hemostasis was obtained with deployment of TR band. There was no immediate complication. Patient was returned to her room in stable condition. The patient received 4000 units of intravenous heparin as well as intra-arterial verapamil. FINDINGS: FLUOROSCOPY: There was significant calcification involving all the coronary arteries. CORONARY ANGIOGRAM: LEFT MAIN: This is a large-sized vessel, bifurcating into left circumflex, left anterior descending artery, left main coronary artery has no evidence of high-grade stenosis. LEFT ANTERIOR DESCENDING ARTERY: This is a large-sized vessel reaching to the apex with a wraparound apex segment giving rise to 2 diagonal branches. The proximal left anterior descending artery has 20% to 30% tubular plaque. There is another plaque after the second diagonal branch of 20% to 30%. The rest of the vessel has no high- grade stenosis. LEFT CIRCUMFLEX: This is a nondominant vessel, large in caliber giving rise to 3 obtuse marginal branches. The left circumflex as well as branches have no evidence of obstructive coronary artery disease. RIGHT CORONARY ARTERY: This is a large dominant vessel bifurcating distally PDA and posterolateral segment and branches. The right coronary artery in mid segment has a 20% to 30% plaque. The rest of the vessel has no high-grade stenosis. LEFT VENTRICULOGRAM: Left ventriculogram was not performed. HEMODYNAMICS: There was no gradient across the aortic valve. The left ventricular end-diastolic pressure was 10-12 mmHg. CONCLUSION: 1. Calcified coronary arteries. 2. Mild obstructive disease involving the LAD and the right coronary artery. RECOMMENDATION: In view of findings and anatomy, I recommend continue medical therapy with aggressive coronary risk modifications that have been initiated. Those findings and recommendations were discussed with the patient and her family her are in full understanding and agreement. Duration of sedation is 15 minutes. MMYOSHI / SUSANN: [id number] /
--- NOTE | 2021-03-22 09:15 | LTR ---
DATE OF SERVICE: 03/22/2021 RE: Alba Arevalo Dear Dr. Bryant: I had the pleasure of performing cardiac catheterization on Mrs. Arevalo at [facility] on March 22 and a full copy of procedure note will be forwarded to you. In brief, she was found to have mild obstructive disease and calcified coronary arteries with no evidence of high-grade stenosis and based on this finding, I recommend continued medical therapy with aggressive coronary risk modifications that have been initiated. Thank you again for allowing me to participate in her care. Please feel free to call for any questions. Sincerely yours, MMSAMUELL / IJN: [id number] /
[2021-03-22] MEDS ORDERED: ACETAMINOPHEN TAB 500 MG TAB PO ONE (11:45)
[2021-03-22 14:59] VITALS: BP 158/72; PULSE 62
[2021-03-22] MEDS ORDERED: WARFARIN 2.5 MG TAB PO SCH (21:00)
[2021-03-22] MEDS ORDERED: METOPROLOL TARTRATE 25 MG TAB PO SCH (21:00)
[2021-03-23] MEDS ORDERED: PANTOPRAZOLE 40 MG TABLET PO SCH (07:30)
[2021-03-23] MEDS ORDERED: LOSARTAN 50 MG TAB PO SCH (09:00)
[2021-03-23] MEDS ORDERED: ISOSORBIDE MONONITRATE ER 30 MG TAB.ER.24H PO SCH (09:00)
[2021-03-23] MEDS ORDERED: DILTIAZEM CD 180 MG CAP.ER.24H PO SCH (09:00)
[2021-03-23] MEDS ORDERED: WARFARIN 1.25 MG TAB PO SCH (21:00)
== END 2021-03-22 13:45 | disposition home or self-care (01) ==
LOC: CATHCVL 05:50
PROVIDERS: ATTEND Internal Medicine Interventional Cardiology
DX: I25.10 Atherosclerotic heart disease of native coronary artery without angina pectoris (principal); I25.84 Coronary atherosclerosis due to calcified coronary lesion; I10 Essential (primary) hypertension; E78.5 Hyperlipidemia, unspecified; F17.210 Nicotine dependence, cigarettes, uncomplicated; I48.19 Other persistent atrial fibrillation; E78.00 Pure hypercholesterolemia, unspecified; Z90.710 Acquired absence of both cervix and uterus; Z86.73 Personal history of transient ischemic attack (TIA), and cerebral infarction without residual deficits; Z90.49 Acquired absence of other specified parts of digestive tract; Z90.89 Acquired absence of other organs; Z79.01 Long term (current) use of anticoagulants; Z79.51 Long term (current) use of inhaled steroids; Z79.899 Other long term (current) drug therapy; Z88.2 Allergy status to sulfonamides; Z91.09 Other allergy status, other than to drugs and biological substances
CPT/HCPCS: 93458; 85610; C1894; C1769; J2250; J2001; J3010; J1644; Q9967

== ENCOUNTER 2021-07-21 11:35 | Observation (INO) | payer MEDICARE ==
[2021-07-21] MEDS ORDERED: NITROGLYCERIN SL TABS 0.4 MG TAB SUBLINGUAL STA ×3 (12:11)
[2021-07-21] MEDS ORDERED: ASPIRIN 81 MG PO STA (12:11)
--- NOTE | 2021-07-21 12:14 | ED ---
General Adult HPI - General Chief complaint: Chest Pain Stated complaint: back/chest muscle pain Time Seen by Provider: 07/21/21 11:57 Source: patient, RN notes reviewed Mode of arrival: wheelchair Limitations: no limitations - History of Present Illness Initial comments: Patient is a pleasant 76-year-old female presenting to the emergency department with complaints of chest discomfort. Onset was yesterday morning. Symptoms have been persistent. Symptoms are somewhat worse with movement. Discomfort is difficult to describe. There was some discomfort in the back earlier. No associated nausea or vomiting. No dyspnea. No diaphoresis. No history of similar symptoms previously. Discomfort is currently 03/03. Patient does have history of atrial fibrillation. - Related Data Home Medications Medication Instructions Recorded Confirmed LORazepam [Ativan] 0.5 mg PO BID PRN 09/15/18 03/22/21 Losartan [Cozaar] 50 mg PO DAILY 11/06/20 03/22/21 Omeprazole 40 mg PO DAILY 11/06/20 03/22/21 Warfarin Sodium [Jantoven] 1.25 mg PO MOWEFR@2100 11/06/20 03/20/21 Warfarin [Coumadin] 2.5 mg PO SUTUTHSA@2100 11/06/20 03/20/21 Albuterol Inhaler [Ventolin Hfa 2 puff INHALATION RT-QID PRN 03/20/21 03/20/21 Inhaler] Albuterol Nebulized [Ventolin 2.5 mg INHALATION Q4H PRN 03/20/21 03/20/21 Nebulized] Budesonide-Formot 160-4.5 Mcg 2 puff INHALATION BID PRN 03/20/21 03/20/21 [Symbicort 160-4.5 Mcg Inhaler] Diltiazem HCl [Diltiazem HCl 24Hr 180 mg PO DAILY 03/20/21 03/22/21 ER (CD)] Furosemide [Lasix] 20 mg PO BID 03/20/21 03/22/21 Isosorbide Mononitrate ER [Imdur] 30 mg PO QAM 03/20/21 03/22/21 Metoprolol Tartrate [Lopressor] 75 mg PO BID 03/20/21 03/22/21 Allergies Allergy/AdvReac Type Severity Reaction Status Date / Time nisoldipine [From Sular] AdvReac Unknown Verified 07/21/21 11:41 Review of Systems ROS Statement: Those systems with pertinent positive or pertinent negative responses have been documented in the HPI. ROS Other: All systems not noted in ROS Statement are negative. 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 General Exam Limitations: no limitations General appearance: alert, in no apparent distress Head exam: Present: normocephalic Eye exam: Present: normal appearance Neck exam: Present: normal inspection Respiratory exam: Present: normal lung sounds bilaterally. Absent: chest wall tenderness Cardiovascular Exam: Present: irregular rhythm, normal heart sounds Expanded Peripheral pulses: 2+: Radial (R), Radial (L), Dorsalis Pedis (R), Dorsalis Pedis (L) GI/Abdominal exam: Present: soft. Absent: tenderness Extremities exam: Present: normal inspection. Absent: pedal edema, calf tend erness Neurological exam: Present: alert Psychiatric exam: Present: normal affect, normal mood Skin exam: Present: normal color Course Vital Signs 07/21/21 11:36 Temperature 97.6 F Pulse Rate 75 Respiratory 18 Rate Blood Pressure 154/101 O2 Sat by Pulse 100 Oximetry EKG Findings - EKG Comments: EKG Findings:: A. fib with RVR, rate 116. QRS 72. QT 314. QTC 436. Normal axis. Septal Q waves. Borderline inferior T wave inversion. Medical Decision Making - Medical Decision Making Patient reevaluated and still having discomfort despite nitroglycerin. Patient and family updated on results and plan. Case was discussed with Dr. Vang, who will admit covering Dr. Bryant. - Lab Data Result diagrams: 07/21/21 12:48 07/21/21 12:48 Lab Results 07/21/21 07/21/21 07/21/21 Range/Units 12:48 12:48 12:48 WBC 10.5 (3.8-10.6) k/uL RBC 4.03 (3.80-5.40) m/uL Hgb 14.7 (11.4-16.0) gm/dL Hct 42.6 (34.0-46.0) % MCV 105.7 H (80.0-100.0) fL MCH 36.5 H (25.0-35.0) pg MCHC 34.5 (31.0-37.0) g/dL RDW 12.6 (11.5-15.5) % Plt Count 261 (150-450) k/uL MPV 7.5 Neutrophils % 80 % Lymphocytes % 15 % Monocytes % 4 % Eosinophils % 1 % Basophils % 0 % Neutrophils # 8.4 H (1.3-7.7) k/uL Lymphocytes # 1.5 (1.0-4.8) k/uL Monocytes # 0.4 (0-1.0) k/uL Eosinophils # 0.1 (0-0.7) k/uL Basophils # 0.0 (0-0.2) k/uL Macrocytosis Slight PT 18.5 H (9.0-12.0) sec INR 1.9 H (<1.2) APTT 31.7 H (22.0-30.0) sec D-Dimer <0.17 (<0.60) mg/L FEU Sodium 130 L (137-145) mmol/L Potassium 4.6 (3.5-5.1) mmol/L Chloride 102 (98-107) mmol/L Carbon Dioxide 25 (22-30) mmol/L Anion Gap 3 mmol/L BUN 9 (7-17) mg/dL Creatinine 0.57 (0.52-1.04) mg/dL Est GFR (CKD-EPI)AfAm >90 (>60 ml/min/1.73 sqM) Est GFR (CKD-EPI)NonAf >90 (>60 ml/min/1.73 sqM) Glucose 98 (74-99) mg/dL Calcium 9.0 (8.4-10.2) mg/dL Magnesium 1.9 (1.6-2.3) mg/dL Total Bilirubin 0.9 (0.2-1.3) mg/dL AST 27 (14-36) U/L ALT 20 (4-34) U/L Alkaline Phosphatase 101 (38-126) U/L Troponin I (0.000-0.034) ng/mL Total Protein 6.0 L (6.3-8.2) g/dL Albumin 3.5 (3.5-5.0) g/dL Amylase 38 (30-110) U/L Lipase 32 (23-300) U/L 07/21/21 Range/Units 12:48 WBC (3.8-10.6) k/uL RBC (3.80-5.40) m/uL Hgb (11.4-16.0) gm/dL Hct (34.0-46.0) % MCV (80.0-100.0) fL MCH (25.0-35.0) pg MCHC (31.0-37.0) g/dL RDW (11.5-15.5) % Plt Count (150-450) k/uL MPV Neutrophils % % Lymphocytes % % Monocytes % % Eosinophils % % Basophils % % Neutrophils # (1.3-7.7) k/uL Lymphocytes # (1.0-4.8) k/uL Monocytes # (0-1.0) k/uL Eosinophils # (0-0.7) k/uL Basophils # (0-0.2) k/uL Macrocytosis PT (9.0-12.0) sec INR (<1.2) APTT (22.0-30.0) sec D-Dimer (<0.60) mg/L FEU Sodium (137-145) mmol/L Potassium (3.5-5.1) mmol/L Chloride (98-107) mmol/L Carbon Dioxide (22-30) mmol/L Anion Gap mmol/L BUN (7-17) mg/dL Creatinine (0.52-1.04) mg/dL Est GFR (CKD-EPI)AfAm (>60 ml/min/1.73 sqM) Est GFR (CKD-EPI)NonAf (>60 ml/min/1.73 sqM) Glucose (74-99) mg/dL Calcium (8.4-10.2) mg/dL Magnesium (1.6-2.3) mg/dL Total Bilirubin (0.2-1.3) mg/dL AST (14-36) U/L ALT (4-34) U/L Alkaline Phosphatase (38-126) U/L Troponin I 0.027 (0.000-0.034) ng/mL Total Protein (6.3-8.2) g/dL Albumin (3.5-5.0) g/dL Amylase (30-110) U/L Lipase (23-300) U/L - Radiology Data Radiology results: image reviewed (Chest x-ray shows chronic changes) Disposition Clinical Impression: Chest pain Disposition: ADMITTED IP TO THIS [facility] Is patient prescribed a controlled substance at d/c from ED?: No Referrals: Allie Bryant MD [Primary Care Provider] - 1-2 days Decision Time: 13:41
[2021-07-21 12:57] LABS: Basophils % (A) 0 %; Eosinophils # (A) 0.1 k/uL (0-0.7); Eosinophils % (A) 1 %; HCT 42.6 % (34.0-46.0); HGB 14.7 gm/dL (11.4-16.0); Lymphocytes # (A) 1.5 k/uL (1.0-4.8); Lymphocytes % (A) 15 %; MCH 36.5 pg (25.0-35.0); MCHC 34.5 g/dL (31.0-37.0); MCV 105.7 fL (80.0-100.0); Macrocytosis Slight; Mean Platelet Volume 7.5; Monocytes # (A) 0.4 k/uL (0-1.0); Monocytes % (A) 4 %; Neutrophils # (A) 8.4 k/uL (1.3-7.7); Neutrophils % (A) 80 %; Platelet Count 261 k/uL (150-450); RBC 4.03 m/uL (3.80-5.40); RDW 12.6 % (11.5-15.5); WBC 10.5 k/uL (3.8-10.6)
--- NOTE | 2021-07-21 13:08 | XR ---
EXAMINATION TYPE: XR chest 2V DATE OF EXAM: 07/21/2021 COMPARISON: Chest x-ray November 10, 2020 HISTORY: Chest pain into back. TECHNIQUE: Frontal and lateral views of the chest are obtained. FINDINGS: There is chronic parenchymal changes without suspicious focal air space opacity, pleural e ffusion, or pneumothorax seen. The cardiac silhouette size is mildly enlarged. The osseous structu res are demineralized. IMPRESSION: Mild cardiomegaly and chronic parenchymal change without acute pulmonary process.
[2021-07-21 13:10] LABS: ALT 20 U/L (4-34); AST 27 U/L (14-36); African American GFR (CKD) >90 (>60 ml/min/1.73 sqM); Albumin 3.5 g/dL (3.5-5.0); Alkaline Phosphatase 101 U/L (38-126); Amylase 38 U/L (30-110); Anion Gap 3 mmol/L; Blood Urea Nitrogen 9 mg/dL (7-17); Carbon Dioxide 25 mmol/L (22-30); Chloride 102 mmol/L (98-107); Glucose 98 mg/dL (74-99); Lipase 32 U/L (23-300); Non-African American GFR(CKD) >90 (>60 ml/min/1.73 sqM); Potassium 4.6 mmol/L (3.5-5.1); Sodium 130 mmol/L (137-145); Total Bilirubin 0.9 mg/dL (0.2-1.3)
[2021-07-21 13:11] LABS: Magnesium 1.9 mg/dL (1.6-2.3)
[2021-07-21 13:19] LABS: INR 1.9 (<1.2); Partial Thromboplastin Time 31.7 sec (22.0-30.0); Prothrombin Time 18.5 sec (9.0-12.0)
[2021-07-21] MEDS ORDERED: MORPHINE SULFATE 4 MG/ML SYRINGE IVP STA (13:40)
[2021-07-21] MEDS ORDERED: NITROGLYCERIN SL TABS 0.4 MG TAB SUBLINGUAL PRN (13:42)
[2021-07-21] MEDS ORDERED: ALBUTEROL HFA INHALER INHALATION PRN (15:38)
[2021-07-21] MEDS ORDERED: LORazepam 0.5 MG TAB PO PRN (15:38)
[2021-07-21] MEDS ORDERED: SYMBICORT 160-4.5 MCG INHALER INHALATION PRN (15:38)
[2021-07-21] MEDS ORDERED: DOCUSATE 100 MG CAP PO PRN (15:38)
[2021-07-21 16:28] LABS: INR 1.9 (<1.2); Prothrombin Time 19.1 sec (9.0-12.0)
[2021-07-21] MEDS: AMOXIC-POT CLAV 875-125MG 1 EACH TAB PO SCH ×2 (17:25→23:09)
[2021-07-21] MEDS: FUROSEMIDE 10 MG/ML 4 ML VIAL IV SCH ×2 (17:31→19:28)
[2021-07-21] MEDS: METOPROLOL TARTRATE 25 MG TAB PO SCH ×2 (17:31→21:28)
[2021-07-21] MEDS ORDERED: MORPHINE SULFATE 4 MG/ML SYRINGE IVP PRN (17:46)
--- NOTE | 2021-07-21 17:54 | HP ---
HISTORY AND PHYSICAL DATE OF SERVICE: 07/21/2021 CHIEF COMPLAINT: Chest pain. HISTORY OF PRESENT ILLNESS: This 76-year-old woman with a past medical history of atrial fibrillation, asthma, COPD, CVA, TIA, GERD, hypertension, hyperlipidemia, being followed by Dr. Bryant in the outpatient setting, was complaining of chest pain. The chest pain part of the chest and also radiating to the left side since yesterday morning. Symptoms are rather persistent without any relation to exertion or any other relieving factors. Patient came to [facility] and admitted to the hospital for further evaluation and treatment. Initial troponins are negative. The troponin 0.027. D-dimer is negative. Sodium is 138. The patient admitted to the hospital for further evaluation and treatment. Patient is already taking anticoagulation. INR is 1.9. Covid 19 is negative. There is no history of fever, rigors, chills at this time. PAST MEDICAL HISTORY: History of atrial fibrillation, asthma, COPD, CVA, TIA, GERD, hypertension, hyperlipidemia. MEDICATIONS: Home medications prior to admission are: Coumadin, K-Dur 20 mEq p.o. daily, omeprazole 40 mg p.o. daily, Lopressor 70 mg p.o. b.i.d. melatonin 10 mg q.h.s., Cozaar 50 mg p.o. daily, Ativan 0.5 b.i.d. p.r.n., Imdur 30 mg p.o. daily, DuoNeb t.i.d., Lasix 20 mg b.i.d., Colace 100 mg p.o. q48 p.r.n., diltiazem 180 mg p.o. daily, Symbicort 160/4.5 2 puffs b.i.d., Augmentin b.i.d., Ventolin HFA 2 puffs q.i.d. p.r.n., Tylenol p.r.n. daily. ALLERGIES: ANTIBIOTICS AND SULFA. FAMILY HISTORY: No history of any heart disease or strokes in the family. SOCIAL HISTORY: History of smoking. No alcohol intake. REVIEW OF SYSTEMS: ENT: Diminished vision. Diminished hearing. CARDIOVASCULAR: As mentioned earlier. GI: No nausea or vomiting. : No dysuria. NERVOUS SYSTEM: No numbness or weakness. ALLERGY/IMMUNOLOGY: As mentioned earlier. HEMATOLOGY/ONCOLOGY: No history of anemia. ENDOCRINE: No history of diabetes or hypothyroidism. CONSTITUTIONAL: As mentioned earlier. DERMATOLOGY: Negative. RHEUMATOLOGY: Negative. PSYCHIATRIC: As mentioned earlier. PHYSICAL EXAMINATION: Patient is alert, oriented x3. Pulse is 109. Blood pressure 137/89, respiration 18, temperature 97.7, pulse ox 98% on room air. HEENT: Conjunctivae normal. NECK: No jugular venous distention. No carotid bruit. No lymph node enlargement. CARDIOVASCULAR: S1, S2, muffled. No S3, no S4. RESPIRATORY: Diminished breath sounds at the bases. A few scattered rhonchi. ABDOMEN: Soft, nontender. No mass palpable. LEGS are no edema. No swelling. NERVOUS SYSTEM: Higher functions as mentioned earlier. Moves all four limbs. No focal deficits. SKIN: No ulcer, rash or bleeding. LYMPHATICS: No lymph nodes palpable in the neck, axillae or groin. JOINTS: No active deforming arthropathy. LABS: WBC 105 and INR 1.9. Sodium 130, total protein is 6. ASSESSMENT: 1. Chest pain, possible unstable angina. 2. History of nicotine dependence. 3. Hyponatremia. 4. Increased MCV. 5. History atrial fibrillation. 6. History of asthma, chronic obstructive pulmonary disease. 7. History of cerebrovascular accident. 8. History of gastroesophageal reflux disease. 9. Hypertension. 10.Hyperlipidemia. 11.History of degenerative joint disease. 12.History of cerebrovascular accident and stroke. 13.History of brain aneurysm. 14.History of cholecystectomy. 15.History of anxiety. 16.History of nicotine dependence continued ongoing. RECOMMENDATIONS AND DISCUSSION: This 76-year-old woman who presented with multiple complex medical issues, we will monitor the patient closely, continue the current medications, and symptomatic treatment. Otherwise, at this time rule out myocardial infarction. Resume the home medications. Cardiology consultation. Possible stress test versus cardiac cath. Prognosis guarded. Further recommendations to follow. A copy of this dictation is being forwarded to Dr. Bryant who is the primary physician. MMYOSHI / TAMEKA: [id number] / MTDD
[2021-07-21] MEDS: NITROGLYCERIN OINT 1 INCH/GM PACKET TOPICAL SCH ×2 (17:59→23:08)
[2021-07-21] MEDS ORDERED: WARFARIN 2.5 MG TAB PO SCH (18:00)
[2021-07-21] MEDS: MELATONIN 5 MG TABLET PO SCH (19:29)
[2021-07-21] MEDS: IPRATROPIUM-ALBUTEROL 3 ML NEB INHALATION SCH (20:09)
[2021-07-21] MEDS ORDERED: FUROSEMIDE 20 MG TAB PO SCH (21:00)
[2021-07-22] MEDS: NITROGLYCERIN OINT 1 INCH/GM PACKET TOPICAL SCH (05:03)
[2021-07-22] MEDS ORDERED: ASPIRIN 325 MG TAB PO SCH (09:00)
[2021-07-22] MEDS: ACETAMINOPHEN TAB 500 MG TAB PO SCH (09:22)
[2021-07-22] MEDS: LOSARTAN 50 MG TAB PO SCH (09:22)
[2021-07-22] MEDS: PANTOPRAZOLE 40 MG TABLET PO SCH (09:22)
[2021-07-22] MEDS: POTASSIUM CHLORIDE ER 20 MEQ TAB.ER PO SCH (09:22)
[2021-07-22] MEDS: FUROSEMIDE 20 MG TAB PO SCH ×2 (09:24→17:38)
[2021-07-22] MEDS: DILTIAZEM CD 180 MG CAP.ER.24H PO SCH (09:24)
[2021-07-22] MEDS: METOPROLOL TARTRATE 25 MG TAB PO SCH ×4 (09:24→23:39)
[2021-07-22 09:25] LABS: HGB 14.2 g/dL (12.0-15.0); MCH 36.8 pg (27.0-32.0); MCHC 33.8 g/dL (32.0-37.0); MCV 108.8 fL (80.0-97.0); Mean Platelet Volume 10.3 fL (9.5-12.2); Platelet Count 272 X 10*3/uL (140-440); RBC 3.86 X 10*6/uL (4.10-5.20); RDW 13.2 % (11.5-14.5); WBC 10.17 X 10*3/uL (4.50-10.00)
[2021-07-22] MEDS: ISOSORBIDE MONONITRATE ER 30 MG TAB.ER.24H PO SCH (09:31)
[2021-07-22 09:50] LABS: INR 1.91 (0.90-1.11); Prothrombin Time 20.9 sec (9.9-11.9)
[2021-07-22] MEDS: IPRATROPIUM-ALBUTEROL 3 ML NEB INHALATION SCH ×3 (10:01→19:40)
[2021-07-22] MEDS ORDERED: IOPAMIDOL CONTRAST (ORAL USE) VIAL PO PRN (10:05)
[2021-07-22 10:16] LABS: Basophils # (A) 0.04 X 10*3/uL (0.00-0.10); Basophils % (A) 0.4 %; Eosinophils # (A) 0.07 X 10*3/uL (0.04-0.35); Eosinophils % (A) 0.7 %; Lymphocytes % (A) 15.7 %; Monocytes # (A) 0.64 X 10*3/uL (0.20-1.00); Monocytes % (A) 6.3 %; Neutrophils # (A) 7.79 X 10*3/uL (1.80-7.70); Neutrophils % (A) 76.6 %
[2021-07-22 10:17] LABS: Macrocytosis (M) 2+
--- NOTE | 2021-07-22 10:17 | P.CRDCN ---
History of Present Illness History of present illness: HISTORY OF PRESENTING ILLNESS This is a pleasant 76-year-old female past medical history significant for chronic persistent atrial fibrillation, dyslipidemia, hypertension, COPD and nonobstructive coronary artery disease. She follows in the office with Dr. Manzanares. We have been asked to see in consultation for chest pain. She states she woke up on Friday morning with a discomfort in her chest that radiated through to the back. The pain was significant 10 out of 10 and exacerbated by movement of her torso. It was associated with some palpitations and fluttering in her chest. The pain was constant and ongoing all day Friday and all day Friday ultimately prompting her to come to the hospital for evaluation. On arrival she was noted to be in atrial fibrillation with heart rate of 116. Chest x-ray was negative for an acute cardiopulmonary process. Laboratory data reviewed, WBC 10.5, hemoglobin 14.7, platelets 261, INR 1.9, d-dimer less than 0.17, sodium 1:30, potassium 4.6, creatinine 0.57, magnesium 1.9, cardiac enzymes negative 3, proBNP 2550. Most recent cardiac catheterization performed February 2021 revealed 30% disease of the proximal LAD, 30% disease of 52, 30% disease of the mid RCA. Most recent echocardiogram obtained October 2020 revealed mildly impaired LV systolic function with ejection fraction 43%, mild MR and mild to moderate TR. Current daily cardiac medications include warfarin, Lopressor 75 mg twice a day, losartan 50 mg daily, Imdur 30 mg daily, Lasix 20 mg twice a day and diltiazem 180 mg daily. REVIEW OF SYSTEMS At the time of my exam: CONSTITUTIONAL: Denies fever or chills. CARDIOVASCULAR: Denies chest pain, shortness of breath, orthopnea, PND or palpitations. RESPIRATORY: Denies cough. GASTROINTESTINAL: Denies abdominal pain, diarrhea, constipation, nausea or vomiting. MUSCULOSKELETAL: Denies myalgias. NEUROLOGIC: Denies numbness, tingling, headache or weakness. ENDOCRINE: Denies fatigue, weight change, polydipsia or polyurina. GENITOURINARY: Denies burning, hematuria or urgency with micturation. HEMATOLOGIC: Denies history of anemia or bleeding. PHYSICAL EXAMINATION Blood pressure 126/78 heart rate 87 afebrile and maintaining oxygen saturation on room air. CONSTITUTIONAL: No apparent distress. HEENT: Head is normocephalic. Pupils are equal, round. Sclerae anicteric. Mucous membranes of the mouth are moist. No JVD. No carotid bruit. CHEST EXAMINATION: Lungs are clear to auscultation. No chest wall tenderness is noted on palpation or with deep breathing. HEART EXAMINATION: Regular rate and rhythm. S1, S2 heard. No murmurs, gallops or rub. ABDOMEN: Soft, nontender. EXTREMITIES: 2+ peripheral pulses, no lower extremity edema and no calf tenderness. NEUROLOGIC EXAMINATION: Patient is awake, alert and oriented x3. ASSESSMENT Chest pain and back pain, atypical Chronic persistent afib with RVR Non-ischemic cardiomyopathy Hypertension Non-obstructive CAD Dyslipidemia PLAN Pain is not related to CAD, muscular in nature. Obtain XR of the lumbar and thoracic spine. CT abdomen with PO and IV contrast. Hydrate with NS 100cc/hr prior to CT and then for 10 hours at 75 thereafter. Increase lopressor to 75 mg TID. We will continue to follow and make further recommendations. Thank you kindly for this consultation. Nurse Practitioner note has been reviewed, I agree with a documented findings a nd plan of care. Patient was seen and examined. 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 History of Any Multi-Drug Resistant Organisms: None Reported Past Surgical History: Cholecystectomy, Hysterectomy, Orthopedic Surgery, Tonsillectomy Additional Past Surgical History / Comment(s): coiled brain aneursym, juan foot surgery, colonoscopy Past Anesthesia/Blood Transfusion Reactions: No Reported Reaction Past Psychological History: Anxiety Additional Psychological History / Comment(s): Pt resides in her own home. Her brandan lives with her. She uses a cane prn. She drives some. Smoking Status: Current every day smoker Past Alcohol Use History: Daily Additional Past Alcohol Use History / Comment(s): Pt started smoking in 1968 and is a ppd smoker. She drinks alcohol regularly at states she drinks 2 beers a day Past Drug Use History: None Reported - Past Family History Mother Family Medical History: No Reported History Father Family Medical History: No Reported History Additional Family Medical History / Comment(s): Father was healthy. Medications and Allergies Home Medications Medication Instructions Recorded Confirmed Type LORazepam [Ativan] 0.5 mg PO BID PRN 09/15/18 07/21/21 History Losartan [Cozaar] 50 mg PO DAILY 11/06/20 07/21/21 History Omeprazole 40 mg PO DAILY 11/06/20 07/21/21 History Warfarin Sodium [Jantoven] 1.25 mg PO Q48H 11/06/20 07/21/21 History Warfarin [Coumadin] 2.5 mg PO Q48H 11/06/20 07/21/21 History Albuterol Inhaler [Ventolin Hfa 2 puff INHALATION RT-QID PRN 03/20/21 07/21/21 History Inhaler] Budesonide-Formot 160-4.5 Mcg 2 puff INHALATION RT-BID PRN 03/20/21 07/21/21 History [Symbicort 160-4.5 Mcg Inhaler] Diltiazem HCl [Diltiazem HCl 24Hr 180 mg PO DAILY 03/20/21 07/21/21 History ER (CD)] Furosemide [Lasix] 20 mg PO BID 03/20/21 07/21/21 History Isosorbide Mononitrate ER [Imdur] 30 mg PO DAILY 03/20/21 07/21/21 History Metoprolol Tartrate [Lopressor] 75 mg PO BID 03/20/21 07/21/21 History Acetaminophen Tab [Tylenol Tab] 1,000 mg PO DAILY 07/21/21 07/21/21 History Amoxic-Pot Clav 875-125Mg 1 tab PO Q12H 07/21/21 07/21/21 History [Augmentin 875-125] Docusate [Colace] 100 mg PO Q48H PRN 07/21/21 07/21/21 History Ipratropium-Albuterol Nebulize 3 ml INHALATION RT-TID 07/21/21 07/21/21 History [Duoneb 0.5 mg-3 mg/3 ml Soln] Melatonin [Melatonin Disolving 10 mg PO HS 07/21/21 07/21/21 History Tablet] Potassium Chloride ER [K-Dur 20] 20 meq PO DAILY 07/21/21 07/21/21 History Allergies Allergy/AdvReac Type Severity Reaction Status Date / Time Sulfa (Sulfonamide Allergy Unknown Verified 07/21/21 14:05 Antibiotics) nisoldipine [From Sular] AdvReac Unknown Verified 07/21/21 11:41 Physical Exam Vitals: Vital Signs Temp Pulse Pulse Pulse Resp BP BP 07/22/21 07:00 97.4 F L 88 18 118/92 07/22/21 02:03 98.1 F 87 16 126/78 07/21/21 20:22 100 07/21/21 20:10 95 07/21/21 19:14 97.4 F L 110 H 22 132/81 07/21/21 15:00 97.7 F 109 H 18 07/21/21 13:53 92 18 115/75 07/21/21 11:36 97.6 F 75 18 154/101 BP Pulse Ox 07/22/21 07:00 96 07/22/21 02:03 95 07/21/21 20:22 07/21/21 20:10 07/21/21 19:14 97 07/21/21 15:00 137/89 96 07/21/21 13:53 97 07/21/21 11:36 100 Intake and Output 07/21/21 07/22/21 07/22/21 22:59 06:59 14:59 Intake Total 120 Output Total 0 Balance 120 Intake: Oral 120 Output: Emesis 0 Other: Voiding Method Toilet Toilet # Voids 1 3 0 Weight 68.039 kg Results 07/22/21 06:10 07/21/21 12:48 Cardiac Enzymes 07/21/21 07/21/21 07/21/21 Range/Units 12:48 12:48 15:54 AST 27 (14-36) U/L Troponin I 0.027 0.027 (0.000-0.034) ng/mL 07/21/21 Range/Units 19:41 AST (14-36) U/L Troponin I 0.025 (0.000-0.034) ng/mL Coagulation 07/21/21 07/21/21 Range/Units 12:48 15:54 PT 18.5 H 19.1 H (9.0-12.0) sec APTT 31.7 H (22.0-30.0) sec CBC 07/21/21 Range/Units 12:48 WBC 10.5 (3.8-10.6) k/uL RBC 4.03 (3.80-5.40) m/uL Hgb 14.7 (11.4-16.0) gm/dL Hct 42.6 (34.0-46.0) % Plt Count 261 (150-450) k/uL Comprehensive Metabolic Panel 07/21/21 Range/Units 12:48 Sodium 130 L (137-145) mmol/L Potassium 4.6 (3.5-5.1) mmol/L Chloride 102 (98-107) mmol/L Carbon Dioxide 25 (22-30) mmol/L BUN 9 (7-17) mg/dL Creatinine 0.57 (0.52-1.04) mg/dL Glucose 98 (74-99) mg/dL Calcium 9.0 (8.4-10.2) mg/dL AST 27 (14-36) U/L ALT 20 (4-34) U/L Alkaline Phosphatase 101 (38-126) U/L Total Protein 6.0 L (6.3-8.2) g/dL Albumin 3.5 (3.5-5.0) g/dL Current Medications Generic Name Dose Route Start Last Admin Trade Name Freq PRN Reason Stop Dose Admin Acetaminophen 1,000 mg 07/22/21 09:00 Acetaminophen Tab 500 Mg Tab PO DAILY [facility] Albuterol Sulfate 2 puff 07/21/21 15:38 Albuterol Hfa Inhaler INHALATION RT-QID PRN Shortness Of Breath Albuterol/Ipratropium 3 ml 07/21/21 20:00 07/21/21 20:09 Ipratropium-Albuterol 3 Ml Neb INHALATION 3 ml RT-TID [facility] Administration Amoxicillin/Clavulanate Potassium 1 each 07/21/21 16:00 07/21/21 23:09 Amoxic-Pot Clav 875-125mg 1 Each Tab PO Not Given Q12H [facility] Budesonide/Formoterol Fumarate 2 puff 07/21/21 15:38 Symbicort 160-4.5 Mcg Inhaler INHALATION RT-BID PRN Shortness Of Breath Diltiazem HCl 180 mg 07/22/21 09:00 Diltiazem Cd 180 Mg Cap.Er.24h PO DAILY [facility] Docusate Sodium 100 mg 07/21/21 15:38 Docusate 100 Mg Cap PO Q48H PRN Constipation Furosemide 20 mg 07/22/21 09:00 Furosemide 20 Mg Tab PO BID@0900,1600 [facility] Isosorbide Mononitrate 30 mg 07/22/21 09:00 Isosorbide Mononitrate Er 30 Mg Tab.Er.24h PO DAILY [facility] Lorazepam 0.5 mg 07/21/21 15:38 Lorazepam 0.5 Mg Tab PO BID PRN Anxiety Losartan Potassium 50 mg 07/22/21 09:00 Losartan 50 Mg Tab PO DAILY [facility] Melatonin 10 mg 07/21/21 21:00 07/21/21 19:29 Melatonin 5 Mg Tablet PO 10 mg HS LEELEE Administration Metoprolol Tartrate 75 mg 07/21/21 21:00 07/21/21 21:28 Metoprolol Tartrate 25 Mg Tab PO 75 mg BID LEELEE Administration Miscellaneous Information 0 each 07/21/21 16:15 Warfarin Per Pharmacy MISCELLANE DIRECTED PRN PER PROTOCOL Morphine Sulfate 4 mg 07/21/21 17:46 07/21/21 18:03 Morphine Sulfate 4 Mg/Ml Syringe IVP 4 mg Q6HR PRN Administration Pain Nitroglycerin 0.4 mg 07/21/21 13:42 Nitroglycerin Sl Tabs 0.4 Mg Tab SUBLINGUAL Q5M PRN Chest Pain Pantoprazole Sodium 40 mg 07/22/21 07:30 Pantoprazole 40 Mg Tablet PO DAILY@0730 [facility] Potassium Chloride 20 meq 07/22/21 09:00 Potassium Chloride Er 20 Meq Tab.Er PO DAILY [facility] Sodium Chloride 10 ml 07/21/21 21:00 07/21/21 21:28 Sodium Chloride 0.9% Flush 10 Ml Syringe IV 10 ml BID [facility] Administration Warfarin Sodium 1.25 mg 07/22/21 18:00 Warfarin 1.25 Mg Tab PO Q48H [facility] Protocol Warfarin Sodium 2.5 mg 07/21/21 18:00 07/21/21 17:32 Warfarin 2.5 Mg Tab PO 2.5 mg Q48H [facility]EELEE Administration Protocol Intake and Output 07/21/21 07/22/21 07/22/21 22:59 06:59 14:59 Intake Total 120 Output Total 0 Balance 120 Intake: Oral 120 Output: Emesis 0 Other: Voiding Method Toilet Toilet # Voids 1 3 0 Weight 68.039 kg 07/21/21 12:48 07/21/21 12:48
[2021-07-22 10:43] LABS: African American GFR (CKD) 86.1 (60.0-200.0); BUN/Creat Ratio 17.27 Ratio (12.00-20.00); Blood Urea Nitrogen 13.4 mg/dL (9.0-27.0); Calcium 8.9 mg/dL (8.7-10.3); Carbon Dioxide 21.4 mmol/L (20.0-27.5); Chloride 103 mmol/L (96-109); Chol/HDL Ratio 3.32 Ratio; Glucose 105 mg/dL (70-110); LDL Cholesterol,Calculated 107.9 mg/dL (0.0-131.0); Non-African American GFR(CKD) 74.3 (60.0-200.0); Potassium 4.3 mmol/L (3.5-5.5); Sodium 137 mmol/L (135-145)
[2021-07-22] MEDS: HYDROmorphone 0.5 MG/0.5 ML SYRINGE IVP PRN ×2 (10:56→17:51)
--- NOTE | 2021-07-22 11:02 | XR ---
EXAMINATION TYPE: XR thoracic spine complete DATE OF EXAM: 07/22/2021 COMPARISON: 01/22/2018 HISTORY: 76 years Female. STUDY INDICATION GIVEN: pain . TECHNIQUE: Frontal and lateral radiographs of the thoracic spine 3 views IMPRESSION: Limited study due to technique. Generalized osteopenia. There are stable compression fracture deformities of two vertebral bodies in the upper and lower thor acic spines as annotated on the x-ray. It is difficult to identify the exact location of the involved vertebral bodies. Alignment is relatively normal. Nonspecific interstitial prominence in the included chest. Atherosclerotic calcifications are seen in the intrathoracic aorta. The heart is not enlarged.
--- NOTE | 2021-07-22 11:20 | XR ---
EXAMINATION TYPE: XR lumbar spine 2 or 3V DATE OF EXAM: 07/22/2021 COMPARISON: 01/22/2018 HISTORY: 76 years Female. STUDY INDICATION GIVEN: pain . TECHNIQUE: Frontal lateral radiographs of the lumbar spine 3 views IMPRESSION: Slight straightening of lumbar lordosis. Normal vertebral body heights.Acutely intact posterior elements. Slight anterior translation of L4 over L5 with no significant change since prior. Severe narrowing at L5-S1, mild to moderate narrowing in the remaining levels of the lumbar spine.Adv anced facet joint arthropathy changes.Multilevel [id number] neural foraminal narrowing most pro minent at L5-S1. Degenerative changes in bilateral sacroiliac joints. Atherosclerotic calcifications are seen in the abdominal aorta. New surgical clips seen in the right upper quadrant. Overall there is interval worsening of degenerative changes in the spine. Findings can be correlated with lumbar spine MRI if clinically indicated.
[2021-07-22] MEDS ORDERED: HYDROcodone/APAP 5-325MG 1 EACH TAB PO PRN (12:17)
--- NOTE | 2021-07-22 14:42 | CT ---
EXAMINATION TYPE: CT abdomen w con DATE OF EXAM: 07/22/2021 HISTORY: bilateral upper quadrant/back pain, extending into chest CT DLP: 582.6mGycm Automated Exposure Control for Dose Reduction was Utilized. CONTRAST: CT scan of the abdomen and pelvis is performed with IV Contrast, patient injected with 100 mL of Isov ue 370. COMPARISON: 06/27/2015 FINDINGS: Minimal lung base atelectasis. No cardiomegaly or pericardial effusion seen.Coronary arterial calcification seen in the region of th e left coronary arteries. No focal hepatic lesion. Normal hepatic contour. No abnormal biliary ductal dilatation. Cholecystecto my clips. Spleen, pancreas and adrenal glands are within normal limit. Kidneys and included portions of the ureters are unremarkable. Distal esophagus, stomach, included small and large bowel loops are normal in course and caliber. There is a very small gastroesophageal hiatal hernia. Included aorta is nonaneurysmal. Atherosclerotic calcifications are seen in the intrathoracic/abdomin al aorta. Calcifications extend into the bilateral common iliac arteries. The inferior vena cava is normal in course and caliber. In the included portion of the abdomen no free air, ascites or enlarged lymph nodes seen. IMPRESSION: No acute abdominal process. See body of report for incidental's.
[2021-07-22] MEDS: AMOXIC-POT CLAV 875-125MG 1 EACH TAB PO SCH (17:37)
[2021-07-22] MEDS ORDERED: WARFARIN 1.25 MG TAB PO SCH (18:00)
[2021-07-22] MEDS: MELATONIN 5 MG TABLET PO SCH (20:57)
--- NOTE | 2021-07-23 02:10 | P.PN ---
Subjective Progress Note Date: 07/22/21 This is a 76-year-old female who was recently admitted with chest pain that was also radiating to the left side of the breast and traveling to the back. Patient denies any recent injury or falls and is very sensitive on palpation of the chest wall and thoracic area. She states she is unable to take a deep inspiration as the pain is immense. cardiology evaluating the patient and feels is mostly muskuloskeletal and ordered some imaging studies including t spine, ls spine, and ct abdomen which is pending. Will add pain medications and encouraged increased activity as tolerated. Patient does have COPD and will contine breathing treatments. Labs: White blood count is 10.17, hemoglobin is 14.2, platelets are 272, INR is 1.91, sodium is 137, potassium is 4.3, BUN is 13.4, creatinine is 0.8, lipid panel within normal limits, d-dimer less than 0.17 Review of systems: Constitutional: No reports of fatigue, fever, or chills Cardiovascular: reports of chest wall pain and thoracic pain Respiratory: no reports of shortness of breath, reports pain with inspiration in the upper back and chest area GI: No reports of nausea, vomiting, or diarrhea : No reports of dysuria or retention Neurovascular: No reports of weakness or numbness All medications have been reviewed Active Medications Acetaminophen (Acetaminophen Tab 500 Mg Tab) 1,000 mg PO DAILY [facility] Last Admin: 07/22/21 09:22 Dose: 1,000 mg Documented by: Hydrocodone Bitart/Acetaminophen (Hydrocodone/Apap 5-325mg 1 Each Tab) 1 each PO Q6HR PRN PRN Reason: Pain Albuterol Sulfate (Albuterol Hfa Inhaler) 2 puff INHALATION RT-QID PRN PRN Reason: Shortness Of Breath Albuterol/Ipratropium (Ipratropium-Albuterol 3 Ml Neb) 3 ml INHALATION RT-TID [facility] Last Admin: 07/22/21 12:20 Dose: 3 ml Documented by: Amoxicillin/Clavulanate Potassium (Amoxic-Pot Clav 875-125mg 1 Each Tab) 1 each PO Q12H [facility] Last Admin: 07/21/21 23:09 Dose: Not Given Documented by: Budesonide/Formoterol Fumarate (Symbicort 160-4.5 Mcg Inhaler) 2 puff INHALATION RT-BID PRN PRN Reason: Shortness Of Breath Diltiazem HCl (Diltiazem Cd 180 Mg Cap.Er.24h) 180 mg PO DAILY [facility] Last Admin: 07/22/21 09:24 Dose: 180 mg Documented by: Docusate Sodium (Docusate 100 Mg Cap) 100 mg PO Q48H PRN PRN Reason: Constipation Furosemide (Furosemide 20 Mg Tab) 20 mg PO BID@0900,1600 [facility] Last Admin: 07/22/21 09:24 Dose: 20 mg Documented by: Hydromorphone HCl (Hydromorphone 0.5 Mg/0.5 Ml Syringe) 0.5 mg IVP Q6HR PRN PRN Reason: Pain Last Admin: 07/22/21 10:56 Dose: 0.5 mg Documented by: Isosorbide Mononitrate (Isosorbide Mononitrate Er 30 Mg Tab.Er.24h) 30 mg PO DAILY [facility] Last Admin: 07/22/21 09:31 Dose: 30 mg Documented by: Lorazepam (Lorazepam 0.5 Mg Tab) 0.5 mg PO BID PRN PRN Reason: Anxiety Losartan Potassium (Losartan 50 Mg Tab) 50 mg PO DAILY [facility] Last Admin: 07/22/21 09:22 Dose: 50 mg Documented by: Melatonin (Melatonin 5 Mg Tablet) 10 mg PO HS [facility] Last Admin: 07/21/21 19:29 Dose: 10 mg Documented by: Metoprolol Tartrate (Metoprolol Tartrate 25 Mg Tab) 75 mg PO TID [facility] Miscellaneous Information (Warfarin Per Pharmacy) 0 each MISCELLANE DIRECTED PRN PRN Reason: PER PROTOCOL Morphine Sulfate (Morphine Sulfate 4 Mg/Ml Syringe) 4 mg IVP Q6HR PRN PRN Reason: Pain Last Admin: 07/21/21 18:03 Dose: 4 mg Documented by: Nitroglycerin (Nitroglycerin Sl Tabs 0.4 Mg Tab) 0.4 mg SUBLINGUAL Q5M PRN PRN Reason: Chest Pain Pantoprazole Sodium (Pantoprazole 40 Mg Tablet) 40 mg PO DAILY@0730 [facility] Last Admin: 07/22/21 09:22 Dose: 40 mg Documented by: Potassium Chloride (Potassium Chloride Er 20 Meq Tab.Er) 20 meq PO DAILY [facility] Last Admin: 07/22/21 09:22 Dose: 20 meq Documented by: Sodium Chloride (Sodium Chloride 0.9% Flush 10 Ml Syringe) 10 ml IV BID [facility] Last Admin: 07/22/21 09:24 Dose: 10 ml Documented by: Warfarin Sodium (Warfarin 1.25 Mg Tab) 1.25 mg PO Q48H [facility]; Protocol Warfarin Sodium (Warfarin 2.5 Mg Tab) 2.5 mg PO Q48H [facility]; Protocol Last Admin: 07/21/21 17:32 Dose: 2.5 mg Documented by: Physical exam: Gen: This is a 76-year-old female awake, alert and oriented 3, well-developed, well-nourished, morbidly obese. Temp is 97.4F, pulse is 88, respirations are 18, blood pressure is 118/92, oxygen saturation is 96% on room air HEENT: Head is atraumatic, normocephalic. Pupils equal, round. Sclerae is anicteric. NECK: Supple. No JVD. No lymphadenopathy. No thyromegaly. LUNGS: diminished breath sounds. No wheezes or rhonchi. No intercostal retractions. HEART: S1, S2 muffled ABDOMEN: Soft. Bowel sounds are present. No masses. No tenderness. EXTREMITIES: No pedal edema. No calf tenderness. NEUROLOGICAL: Patient is awake, alert and oriented x3. Cranial nerves 2 through 12 are grossly intact. Assessment: Chest pain, possible unstable angina History of nicotine dependence Hyponatremia Increased MCV history of atrial fibrillation History of asthma, chronic obstructive pulmonary disease History of gastroesophageal reflux disease Hypertension Hyperlipidemia history of degenerative joint disease history of cerebrovascular accident and stroke History brain aneurysm history of cholecystectomy History of anxiety History of ongoing continued nicotine dependence Plan: Recommended continue with current medications, management, and symptomatic treatment. Patient continues with chest wall pain that radiates to her upper back and cardiology has evaluated her and ordered ct abdomen along with ls and thoracic spine xrays as the pain is reproducible and muskuloskeletal in nature. xrays pending at this time. Encouraged increased activity as tolerated as well. Continue with breathing inhalational treatments and pain medications ordered. Will continue to monitor closely. Possible discharge in 24 hours. Objective - Vital Signs Vital signs: Vital Signs Temp 97.4 F L 07/22/21 07:00 Pulse 144 H 07/22/21 09:38 Resp 18 07/22/21 07:00 BP 118/92 07/22/21 07:00 Pulse Ox 96 07/22/21 07:00 Intake & Output 07/21/21 07/22/21 07/22/21 18:59 06:59 18:59 Intake Total 120 Output Total 0 Balance 120 0 Weight 68.039 kg Intake: Oral 120 Output: Emesis 0 Other: Voiding Method Toilet # Voids 1 3 0 - Labs CBC & Chem 7: 07/22/21 06:10 07/22/21 06:10 Labs: Abnormal Lab Results - Last 24 Hours (Table) 07/21/21 07/21/21 07/21/21 Range/Units 12:48 12:48 12:48 WBC (4.50-10.00) X 10*3/uL RBC (4.10-5.20) X 10*6/uL MCV 105.7 H (80.0-100.0) fL MCH 36.5 H (25.0-35.0) pg Neutrophils # 8.4 H (1.3-7.7) k/uL PT 18.5 H (9.0-12.0) sec INR 1.9 H (<1.2) APTT 31.7 H (22.0-30.0) sec Sodium 130 L (137-145) mmol/L Total Protein 6.0 L (6.3-8.2) g/dL 07/21/21 07/22/21 07/22/21 Range/Units 15:54 06:10 06:10 WBC 10.17 H (4.50-10.00) X 10*3/uL RBC 3.86 L (4.10-5.20) X 10*6/uL MCV 108.8 H (80.0-100.0) fL MCH 36.8 H (25.0-35.0) pg Neutrophils # 7.79 H (1.3-7.7) k/uL PT 19.1 H 20.9 H (9.0-12.0) sec INR 1.9 H 1.91 H (<1.2) APTT (22.0-30.0) sec Sodium (137-145) mmol/L Total Protein (6.3-8.2) g/dL
[2021-07-23] MEDS: AMOXIC-POT CLAV 875-125MG 1 EACH TAB PO SCH (05:50)
[2021-07-23] MEDS: ACETAMINOPHEN TAB 500 MG TAB PO SCH (07:35)
[2021-07-23] MEDS: PANTOPRAZOLE 40 MG TABLET PO SCH (07:35)
[2021-07-23 08:34] VITALS: BP 126/85; RESP 20; TEMP 97.4
[2021-07-23] MEDS: HYDROmorphone 0.5 MG/0.5 ML SYRINGE IVP PRN (08:49)
[2021-07-23] MEDS: IPRATROPIUM-ALBUTEROL 3 ML NEB INHALATION SCH ×2 (09:11→13:08)
[2021-07-23 09:13] VITALS: PULSE 90
[2021-07-23] MEDS: FUROSEMIDE 20 MG TAB PO SCH (09:21)
[2021-07-23] MEDS: ISOSORBIDE MONONITRATE ER 30 MG TAB.ER.24H PO SCH (09:21)
[2021-07-23] MEDS: METOPROLOL TARTRATE 25 MG TAB PO SCH (09:21)
[2021-07-23] MEDS: POTASSIUM CHLORIDE ER 20 MEQ TAB.ER PO SCH (09:21)
[2021-07-23] MEDS: LOSARTAN 50 MG TAB PO SCH (09:21)
[2021-07-23] MEDS: DILTIAZEM CD 180 MG CAP.ER.24H PO SCH (09:21)
[2021-07-23 10:08] LABS: INR 2.05 (0.90-1.11); Prothrombin Time 22.4 sec (9.9-11.9)
--- NOTE | 2021-07-23 10:36 | PN ---
PROGRESS NOTE This is a 76-year-old lady with a history of chronic atrial fibrillation, who has no significant CAD based on a cardiac cath a few months ago, came into the hospital basically complaining of back pain and also pain along the side of her rib. Quality of pain was very atypical. I did some spine x-rays. There is evidence of a spine fracture which could explain some of her symptoms. Her troponins are normal. All other workup is normal. I am recommending that her pain is noncardiac and further management through her admitting doctor. No intervention necessary from a cardiac standpoint. Her last cardiac catheterization was in February of this year and the study revealed a right-dominant system. Mild obstructive CAD in LAD and RCA. No other significant disease. Normal end-diastolic pressures and no gradient. Vitals are stable. Her pain is actually less. Blood pressure is about 128/70. Pulse rate 70-90, irregular. No JVD. S1-S2 heard normally. Irregularity in rhythm noted. Lungs reveal diminished air entry mainly because she is splinting. Abdomen is soft. There is no focal tenderness. There is tenderness on the back over the spine. Lower extremities revealed diminished pulses. Central nervous system is normal. EKG rhythm strip revealed atrial fib controlled rate. IMPRESSION: 1. Noncardiac pain probably related to thoracic spine fracture. 2. No significant obstructive coronary artery disease. 3. Chronic atrial fibrillation, rate is well controlled. 4. Hypertension. RECOMMENDATIONS: Advised further management by admitting physician. I will see the patient as needed. MMODL / IJN: [id number] /
--- NOTE | 2021-07-23 12:36 | P.CNOR ---
History of Present Illness - [facility] Consult date: 07/23/21 Requesting physician: Jodie Campo Consult reason: other (t spine compression fractures/ back pain) History of present illness: Patient is a 78 y/o female with a history of atrial fibrillation and hypertension presenting to the emergency department 07/22/2021 with 1 day history chest pain and left sided radiating to mid back. patient says this pain in the back being on Friday morning when she woke up at home. patient denies any recent falls/trauma to the area. Patient says the pain was 10/10. She says pain is exacerbated during movement. She says the pain is used when she does not move. Patient denies any previous orthopedic surgical history. Patient denies any previous spine surgery. Patient says she does have a TLSO brace at home which she has used before. Patient says she does not think that helped her. patient states the pain the back is located in the middle of the back. x-ray of the T-spine lumbar spine performed and T-spine x-ray is demonstrating compressio n fractures at multiple levels within thoracic spine. patient denies shortness breath, fever, nausea, vomiting, change in vision, loss of bowel/bladder control. Patient denies saddle anesthesia. 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 History of Any Multi-Drug Resistant Organisms: None Reported Past Surgical History: Cholecystectomy, Hysterectomy, Orthopedic Surgery, Tonsillectomy Additional Past Surgical History / Comment(s): coiled brain aneursym, juan foot surgery, colonoscopy Past Anesthesia/Blood Transfusion Reactions: No Reported Reaction Past Psychological History: Anxiety Additional Psychological History / Comment(s): Pt resides in her own home. Her brandan lives with her. She uses a cane prn. She drives some. Smoking Status: Current every day smoker Past Alcohol Use History: Daily Additional Past Alcohol Use History / Comment(s): Pt started smoking in 1968 and is a ppd smoker. She drinks alcohol regularly at states she drinks 2 beers a day Past Drug Use History: None Reported - Past Family History Mother Family Medical History: No Reported History Father Family Medical History: No Reported History Additional Family Medical History / Comment(s): Father was healthy. Medications and Allergies Home Medications Medication Instructions Recorded Confirmed Type LORazepam [Ativan] 0.5 mg PO BID PRN 09/15/18 07/21/21 History Losartan [Cozaar] 50 mg PO DAILY 11/06/20 07/21/21 History Omeprazole 40 mg PO DAILY 11/06/20 07/21/21 History Warfarin Sodium [Jantoven] 1.25 mg PO Q48H 11/06/20 07/21/21 History Warfarin [Coumadin] 2.5 mg PO Q48H 11/06/20 07/21/21 History Albuterol Inhaler [Ventolin Hfa 2 puff INHALATION RT-QID PRN 03/20/21 07/21/21 History Inhaler] Budesonide-Formot 160-4.5 Mcg 2 puff INHALATION RT-BID PRN 03/20/21 07/21/21 History [Symbicort 160-4.5 Mcg Inhaler] Diltiazem HCl [Diltiazem HCl 24Hr 180 mg PO DAILY 03/20/21 07/21/21 History ER (CD)] Furosemide [Lasix] 20 mg PO BID 03/20/21 07/21/21 History Isosorbide Mononitrate ER [Imdur] 30 mg PO DAILY 03/20/21 07/21/21 History Metoprolol Tartrate [Lopressor] 75 mg PO BID 03/20/21 07/21/21 History Acetaminophen Tab [Tylenol Tab] 1,000 mg PO DAILY 07/21/21 07/21/21 History Amoxic-Pot Clav 875-125Mg 1 tab PO Q12H 07/21/21 07/21/21 History [Augmentin 875-125] Docusate [Colace] 100 mg PO Q48H PRN 07/21/21 07/21/21 History Ipratropium-Albuterol Nebulize 3 ml INHALATION RT-TID 07/21/21 07/21/21 History [Duoneb 0.5 mg-3 mg/3 ml Soln] Melatonin [Melatonin Disolving 10 mg PO HS 07/21/21 07/21/21 History Tablet] Potassium Chloride ER [K-Dur 20] 20 meq PO DAILY 07/21/21 07/21/21 History Allergies Allergy/AdvReac Type Severity Reaction Status Date / Time Sulfa (Sulfonamide Allergy Unknown Verified 07/21/21 14:05 Antibiotics) nisoldipine [From Sular] AdvReac Unknown Verified 07/21/21 11:41 Physical Examination inspection: Negative for any erythema, significant ecchymosis, nodules, open fractures. Purpura is present in the bilateral AC fossa and right lower ankle. sensation: Sensation is equal, symmetric, bilaterally intact throughout upper and lower extremities Palpation: patient is tender to palpation in the upper thoracic and lower thoracic region spine. Nontender to palpation throughout rest exam Range of motion: patient has full range of motion bilateral upper extremities in wrist flexion/extension, elbow flexio/extension, shoulder abduction and internal/external rotation. Patient has full range of motion bilateral lower extremities and plantar flexion/dorsiflexion , knee flexion/extension, hip flexion/extension and abduction and adduction. Motor: 4+/5 in all major motor groups in bilateral upper and lower extremities neurovascular status: Radial pulses intact, 2+ bilaterally. Cap refill under 3 seconds bilaterally in upper extremity digits Special tests: Negative Immanuel's bilaterally; negative Homans bilaterally; negative clonus bilaterally Results - Labs Labs: Abnormal Lab Results - Last 24 Hours (Table) 07/23/21 Range/Units 05:33 PT 22.4 H (9.9-11.9) sec INR 2.05 H (0.90-1.11) H & H 07/21/21 07/22/21 Range/Units 12:48 06:10 Hgb 14.7 14.2 (11.4-16.0) gm/dL Hct 42.6 42.0 (34.0-46.0) % Coagulation 07/21/21 07/21/21 07/22/21 Range/Units 12:48 15:54 06:10 INR 1.9 H 1.9 H 1.91 H (<1.2) 07/23/21 Range/Units 05:33 INR 2.05 H (<1.2) Result Diagrams: 07/22/21 06:10 07/22/21 06:10 Assessment and Plan Assessment: 1. multiple thoracic vertebral compression fractures 2. History of atrial fibrillation and hypertension 3. Back pain Plan: 1. multiple thoracic vertebral compression fractures - patient seen and examined bedside this morning. Did discuss findings of the thoracic and lumbar x-rays with patient. I also discussed the findings with my attending, Dr. Scott. At this time we do not recommend any emergent/urgent orthopedic surgical intervention. we do recommend treatment with TLSO bracing at this time. Patient does say she has a brace at home that she has used before. we do recommend patient to follow-up in outpatient setting. Patient is stable from an orthopedic standpoint for discharge home. 2. appreciate cardio and medical management 3. pain management - [place] and Tylenol 4. DVT ppx - Coumadin 5. GI ppx - colace; protonix 6. PT/OT WBAT; recommend use of TLSO brace when up and about Time with Patient: Less than 30
--- NOTE | 2021-07-25 10:19 | P.DS ---
Providers Date of admission: 07/21/21 13:42 Expected date of discharge: 07/23/21 Attending physician: Anel Vang Consults: 07/21/21 13:42 Consult Physician Urgent Consulting Provider: Pascual Branch Consult Reason/Comments: cp Do you want consulting provider notified?: Yes 07/23/21 10:06 Consult Physician Stat Consulting Provider: Jaime Scott Consult Reason/Comments: t spine compression fractures/ back pain Do you want consulting provider notified?: Yes Primary care physician: Allie Bryant Hospital Course: Final diagnosis Chest pain, possible unstable angina History of nicotine dependence T spine compression fractures, at multiple levels Hyponatremia Increased MCV history of atrial fibrillation History of asthma, chronic obstructive pulmonary disease History of gastroesophageal reflux disease Hypertension Hyperlipidemia history of degenerative joint disease history of cerebrovascular accident and stroke History brain aneurysm history of cholecystectomy History of anxiety History of ongoing continued nicotine dependence Discharge disposition Patient is being discharged in a stable condition with guarded prognosis to home. Patient will follow-up with Dr. Bryant in the outpatient setting upon discharge. She is to also follow-up with orthopedics in the outpatient setting. Total time taken is greater than 35 minutes. Hospital course This is a 76-year-old female who was recently admitted with chest pain that was also radiating to the left side of the breast and traveling to the back. Patient denies any recent injury or falls and is very sensitive on palpation of the chest wall and thoracic area. She states she is unable to take a deep inspiration as the pain is immense. cardiology evaluating the patient and feels is mostly muskuloskeletal and ordered some imaging studies including t spine, ls spine, and ct abdomen which is pending. Will add pain medications and encouraged increased activity as tolerated. Patient does have COPD and will contine breathing treatments. 07/23/2021 Patient was seen in follow-up this morning with no acute overnight issues. She continues with back pain and denies further chest pain and will consult orthopedics as the T-spine x-ray showed some compression fractures that are stable. Multiple x-rays of the LS-spine and T-spine along with CT abdomen was done and CT abdomen was negative. Patient states she had a TLSO brace in the past and orthopedics evaluated the patient recommending to continue to use this and follow-up outpatient. No surgical interventions planned for now. Patient will have some pain medication along with muscle relaxer and encouraged to follow-up with primary care provider. Patient does continue to smoke daily and stated she will not quit smoking. Educated encourage the patient on the importance of smoking cessation. Patient will need to follow-up with cardiology outpatient as well. Currently no reports of chest pain, shortness of breath, or palpitations. Patient is afebrile. No reports of nausea or vomiting and patient is tolerating diet. Patient will be discharged home today. Guarded prognosis. Physical exam: GENERAL: The patient is alert and oriented x3, not in any acute distress. Well developed, well nourished. HEENT: Pupils are round and equally reacting to light. EOMI. No scleral icterus. No conjunctival pallor. Normocephalic, atraumatic. No pharyngeal erythema. No thyromegaly. CARDIOVASCULAR: S1 and S2 present. No murmurs, rubs, or gallops. PULMONARY: Chest is clear to auscultation, no wheezing or crackles. ABDOMEN: Soft, nontender, nondistended, normoactive bowel sounds. No palpable organomegaly. MUSCULOSKELETAL: No joint swelling or deformity. EXTREMITIES: No cyanosis, clubbing, or pedal edema. NEUROLOGICAL: Gross neurological examination did not reveal any focal deficits. SKIN: No rashes. Please refer to medication reconciliation sheet for a list of medications. Patient Condition at Discharge: Stable Plan - Discharge Summary New Discharge Prescriptions: New HYDROcodone/APAP 5-325MG [Gilman 5-325] 1 each PO Q6HR PRN #12 tab PRN Reason: Pain Cyclobenzaprine [Flexeril] 5 mg PO TID #20 tablet Continue LORazepam [Ativan] 0.5 mg PO BID PRN PRN Reason: Anxiety Warfarin [Coumadin] 2.5 mg PO Q48H Omeprazole 40 mg PO DAILY Losartan [Cozaar] 50 mg PO DAILY Warfarin Sodium [Jantoven] 1.25 mg PO Q48H Budesonide-Formot 160-4.5 Mcg [Symbicort 160-4.5 Mcg Inhaler] 2 puff INHALATION RT-BID PRN PRN Reason: Shortness Of Breath Diltiazem HCl [Diltiazem HCl 24Hr ER (CD)] 180 mg PO DAILY Isosorbide Mononitrate ER [Imdur] 30 mg PO DAILY Ipratropium-Albuterol Nebulize [Duoneb 0.5 mg-3 mg/3 ml Soln] 3 ml INHALATION RT-TID Docusate [Colace] 100 mg PO Q48H PRN PRN Reason: Constipation Albuterol Inhaler [Ventolin Hfa Inhaler] 2 puff INHALATION RT-QID PRN PRN Reason: Shortness Of Breath Metoprolol Tartrate [Lopressor] 75 mg PO BID Furosemide [Lasix] 20 mg PO BID Potassium Chloride ER [K-Dur 20] 20 meq PO DAILY Melatonin [Melatonin Disolving Tablet] 10 mg PO HS Amoxic-Pot Clav 875-125Mg [Augmentin 875-125] 1 tab PO Q12H Acetaminophen Tab [Tylenol] 1,000 mg PO DAILY Discharge Medication List LORazepam [Ativan] 0.5 mg PO BID PRN 09/15/18 [History] Losartan [Cozaar] 50 mg PO DAILY 11/06/20 [History] Omeprazole 40 mg PO DAILY 11/06/20 [History] Warfarin Sodium [Jantoven] 1.25 mg PO Q48H 11/06/20 [History] Warfarin [Coumadin] 2.5 mg PO Q48H 11/06/20 [History] Albuterol Inhaler [Ventolin Hfa Inhaler] 2 puff INHALATION RT-QID PRN 03/20/21 [History] Budesonide-Formot 160-4.5 Mcg [Symbicort 160-4.5 Mcg Inhaler] 2 puff INHALATION RT-BID PRN 03/20/21 [History] Diltiazem HCl [Diltiazem HCl 24Hr ER (CD)] 180 mg PO DAILY 03/20/21 [History] Furosemide [Lasix] 20 mg PO BID 03/20/21 [History] Isosorbide Mononitrate ER [Imdur] 30 mg PO DAILY 03/20/21 [History] Metoprolol Tartrate [Lopressor] 75 mg PO BID 03/20/21 [History] Acetaminophen Tab [Tylenol] 1,000 mg PO DAILY 07/21/21 [History] Amoxic-Pot Clav 875-125Mg [Augmentin 875-125] 1 tab PO Q12H 07/21/21 [History] Docusate [Colace] 100 mg PO Q48H PRN 07/21/21 [History] Ipratropium-Albuterol Nebulize [Duoneb 0.5 mg-3 mg/3 ml Soln] 3 ml INHALATION RT-TID 07/21/21 [History] Melatonin [Melatonin Disolving Tablet] 10 mg PO HS 07/21/21 [History] Potassium Chloride ER [K-Dur 20] 20 meq PO DAILY 07/21/21 [History] Cyclobenzaprine [Flexeril] 5 mg PO TID #20 tablet 07/23/21 [Rx] HYDROcodone/APAP 5-325MG [Gilman 5-325] 1 each PO Q6HR PRN #12 tab 07/23/21 [Rx] Follow up Appointment(s)/Referral(s): Jaime Scott DO [Doctor of Osteopathic Medicine] - 08/08/21 9:50 am Allie Bryant MD [Primary Care Provider] - 1-2 days Patient Instructions/Handouts: Chest Pain (DC) Activity/Diet/Wound Care/Special Instructions: Activity Limited until follow-up follow up with Primary care provider on discharge Continue current diet Continue medications as prescribed Continue using tlso brace and follow-up with orthopedics outpatient follow up cardiology outpatient as well Discharge Disposition: HOME SELF-CARE
== END 2021-07-23 15:15 | disposition home or self-care (01) ==
LOC: EC 11:35 → 6NMEDSUR 13:42
PROVIDERS: ADMIT Hospitalist; ATTEND Hospitalist
DX: R07.89 Other chest pain (principal); I48.19 Other persistent atrial fibrillation; E87.1 Hypo-osmolality and hyponatremia; S22.009A Unspecified fracture of unspecified thoracic vertebra, initial encounter for closed fracture; I11.9 Hypertensive heart disease without heart failure; J44.9 Chronic obstructive pulmonary disease, unspecified; I25.10 Atherosclerotic heart disease of native coronary artery without angina pectoris; I08.1 Rheumatic disorders of both mitral and tricuspid valves; I42.8 Other cardiomyopathies; M85.88 Other specified disorders of bone density and structure, other site; M47.816 Spondylosis without myelopathy or radiculopathy, lumbar region; I70.0 Atherosclerosis of aorta; K44.9 Diaphragmatic hernia without obstruction or gangrene; I70.8 Atherosclerosis of other arteries; K21.9 Gastro-esophageal reflux disease without esophagitis; E78.5 Hyperlipidemia, unspecified; M48.07 Spinal stenosis, lumbosacral region; M19.90 Unspecified osteoarthritis, unspecified site; F41.9 Anxiety disorder, unspecified; F17.210 Nicotine dependence, cigarettes, uncomplicated; E66.01 Morbid (severe) obesity due to excess calories; Z68.28 Body mass index [BMI] 28.0-28.9, adult; Z71.6 Tobacco abuse counseling; Z20.822 Contact with and (suspected) exposure to COVID-19; Z79.01 Long term (current) use of anticoagulants; Z79.899 Other long term (current) drug therapy; Z88.1 Allergy status to other antibiotic agents; Z88.2 Allergy status to sulfonamides; Z88.8 Allergy status to other drugs, medicaments and biological substances; Z86.73 Personal history of transient ischemic attack (TIA), and cerebral infarction without residual deficits; Z90.49 Acquired absence of other specified parts of digestive tract; Z90.710 Acquired absence of both cervix and uterus; Z98.890 Other specified postprocedural states; Z86.79 Personal history of other diseases of the circulatory system; X58.XXXA Exposure to other specified factors, initial encounter
CPT/HCPCS: 96376 ×3; 96375 ×2; 96374; 99285; 36415; 94640 ×4; 93005; 85379; 83880; 80061; 80053; 80048; 82150; 83690; 83735; 84484; 85025 ×2; 85610 ×3; 85730; 87635; 72072; 72100; 71046; 74160; G0378 ×3; J2270; J1940; J1170 ×2; Q9967

== ENCOUNTER → 2021-08-08 | Outpatient (CLI) | payer MEDICARE ==
--- NOTE | 2021-08-08 13:43 | XR ---
EXAMINATION TYPE: XR chest 2V DATE OF EXAM: 08/08/2021 COMPARISON: Chest x-ray July 21, 2021 HISTORY: Presurgical study. TECHNIQUE: Frontal and lateral views of the chest are obtained. FINDINGS: There is no suspicious new focal air space opacity, pleural effusion, or pneumothorax seen . The cardiac silhouette size is upper limits of normal currently. The osseous structures are inta ct. Cholecystectomy clips are present on lateral view. IMPRESSION: No acute cardiopulmonary process.
[2021-08-08 13:57] LABS: Basophils % (A) 0 %; Eosinophils # (A) 0.1 k/uL (0-0.7); Eosinophils % (A) 1 %; HCT 45.1 % (34.0-46.0); HGB 14.7 gm/dL (11.4-16.0); Lymphocytes # (A) 1.5 k/uL (1.0-4.8); Lymphocytes % (A) 20 %; MCH 35.6 pg (25.0-35.0); MCHC 32.7 g/dL (31.0-37.0); MCV 108.9 fL (80.0-100.0); Macrocytosis Moderate; Mean Platelet Volume 7.9; Monocytes # (A) 0.3 k/uL (0-1.0); Monocytes % (A) 3 %; Neutrophils # (A) 5.8 k/uL (1.3-7.7); Neutrophils % (A) 75 %; Platelet Count 373 k/uL (150-450); RBC 4.14 m/uL (3.80-5.40); RDW 12.4 % (11.5-15.5); WBC 7.8 k/uL (3.8-10.6)
[2021-08-08 14:06] LABS: African American GFR (CKD) >90 (>60 ml/min/1.73 sqM); Anion Gap 8 mmol/L; Blood Urea Nitrogen 7 mg/dL (7-17); Calcium 9.3 mg/dL (8.4-10.2); Carbon Dioxide 31 mmol/L (22-30); Chloride 95 mmol/L (98-107); Glucose 133 mg/dL (74-99); Non-African American GFR(CKD) 88 (>60 ml/min/1.73 sqM); Potassium 4.1 mmol/L (3.5-5.1); Sodium 134 mmol/L (137-145)
== END ==
LOC: LABPAT 12:21
PROVIDERS: ATTEND Orthopaedic Surgery
DX: Z01.812 Encounter for preprocedural laboratory examination (principal); Z22.322 Carrier or suspected carrier of Methicillin resistant Staphylococcus aureus
CPT/HCPCS: 36415; 71046; 80048; 85025; 86850; 86900; 86901; 87070

== ENCOUNTER 2021-08-15 11:36 | Day surgery (SDC) | payer MEDICARE ==
[~2021-08-15 11:36] MED LIST changes: +ACETAMINOPHEN TAB 500 MG TAB PO PRN; +DEXAMETHASONE SOD PHOSPHATE 4 MG/ML 1 ML VIAL IV ONE; +HYDROmorphone 0.5 MG/0.5 ML SYRINGE IVP PRN; -LIDOCAINE 1% 20 ML VIAL (10MG/ML) FOR IV START INTRADERMA PRN; +ONDANSETRON 4 MG/2 ML VIAL IVP PRN
--- NOTE | 2021-08-15 11:54 | P.HPOR ---
History of Present Illness H&P Date: 08/08/21 Chief Complaint: Back pain, fracture Date of :[birth year] R[birth year]Age: 76 year Height: 5'1" Weight: 170 lbs BMI: 32.12 kg/m2 Occupation: Retired VAS: 6 CHIEF COMPLAINT: Thoracic compression fx HISTORY: Xrays New xrays taken in office Trauma or injury No Work-Related No Pain description aching, sharp. Location diffuse Activity Modification yes , unable to stand ro ambulate for extended periods of time. Hand Dominance right DOI: 07/20/2021 (initial day of onset but no known mechanism) DOS: None TREATMENTS COMPLETED: 6 weeks of PT completed? No Physician directed home exercise completed? No Medications yes List: Tylenol with no improvements. Patient does report taking Warfarin Alternative interventions Chiropractic?: No Brace: No Injections No RFA: No SUBJECTIVE: Today Ms. Arevalo presents to the office for an evaluation of her thoracic spine. To review, the patient was seen in the hospital by myself where she was admitted following chest pain and thoracic back pain. Patient notes that her symptoms started the morning of 07/20/2021 where he woke up with acute thoracic back pain, with no known mechanism of injury. Patient was admitted and seen by myself on 07/23/2021. Since the time of her hospital stay she notes that her symptoms have continued to persist. Noting that she is still having thoracic region pain with numbness in her bilateral hands. Due to her symptoms she states that she is unable to stand or ambulate for extended periods of time. Overall she notes that she is limited secondary to her symptoms. As for treatments she denies having completed any since the time of her hospital stay. Otherwise she denies any bladder or bowel incontinence, no perineal numbness/tingling, and ambulates without the use of any aides. The patients' past social, medical, family, surgical history, as well as review of systems, have been reviewed. Please refer to the Neurosurgery History and Physical form that has been scanned in to our electronic medical record system. Review of Systems 14 points review of systems completed and as stated in HPI, all other systems reviewed are negative. 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 History of Any Multi-Drug Resistant Organisms: None Reported Past Surgical History: Cholecystectomy, Hysterectomy, Orthopedic Surgery, Tonsillectomy Additional Past Surgical History / Comment(s): coiled brain aneursym, juan foot surgery, colonoscopy Past Anesthesia/Blood Transfusion Reactions: No Reported Reaction Past Psychological History: Anxiety Additional Psychological History / Comment(s): Pt resides in her own home. Her brandan lives with her. She uses a cane prn. She drives some. Smoking Status: Current every day smoker Past Alcohol Use History: Daily Additional Past Alcohol Use History / Comment(s): Pt started smoking in 1968 and is a ppd smoker. She drinks alcohol regularly at states she drinks 2 beers a day Past Drug Use History: None Reported - Past Family History Mother Family Medical History: No Reported History Father Family Medical History: No Reported History Additional Family Medical History / Comment(s): Father was healthy. Medications and Allergies Home Medications Medication Instructions Recorded Confirmed Type LORazepam [Ativan] 0.5 mg PO BID PRN 09/15/18 08/10/21 History Warfarin Sodium [Jantoven] 1.25 mg PO Q48H 11/06/20 08/10/21 History Warfarin [Coumadin] 2.5 mg PO Q48H 11/06/20 08/10/21 History Albuterol Inhaler [Ventolin Hfa 2 puff INHALATION RT-QID PRN 03/20/21 08/10/21 History Inhaler] Budesonide-Formot 160-4.5 Mcg 2 puff INHALATION RT-BID PRN 03/20/21 08/10/21 History [Symbicort 160-4.5 Mcg Inhaler] Diltiazem HCl [Diltiazem HCl 24Hr 180 mg PO QAM 03/20/21 08/10/21 History ER (CD)] Furosemide [Lasix] 20 mg PO BID 03/20/21 08/10/21 History Isosorbide Mononitrate ER [Imdur] 30 mg PO QAM 03/20/21 08/10/21 History Metoprolol Tartrate [Lopressor] 75 mg PO BID 03/20/21 08/10/21 History Acetaminophen Tab [Tylenol] 1,000 mg PO DAILY 07/21/21 08/10/21 History Docusate [Colace] 100 mg PO Q48H PRN 07/21/21 08/10/21 History Melatonin [Melatonin Disolving 10 mg PO HS 07/21/21 08/10/21 History Tablet] Atorvastatin [Lipitor] 40 mg PO HS 08/10/21 08/10/21 History traMADol HCL 50 mg PO BID PRN 08/10/21 08/10/21 History Allergies Allergy/AdvReac Type Severity Reaction Status Date / Time Sulfa (Sulfonamide Allergy Unknown Verified 08/10/21 14:15 Antibiotics) adhesive tape AdvReac Rash/Hives, Verified 08/10/21 15:14 BLISTERS nisoldipine [From Sular] AdvReac Unknown Verified 08/10/21 14:15 Physical Examination Osteopathic Statement: *. No significant issues noted on an osteopathic structural exam other than those noted in the History and Physical/Consult. PHYSICAL EXAMINATION: General: Awake, alert, appropriate for age, in no acute distress. HEENT: No unusual neck masses around region of lateral neck triangle, thyroid, supraclavicular groove Heart: Regular rate and rhythm, normal S1, S2 and no murmur/gallop. Lungs: Clear to auscultation bilaterally with no use of accessory muscles. Extremities: Skin warm and dry without acute lesions, coloration, temperature, skin intact, no tenderness or erythema Integument: Hairy patches: Absent Dorsal skin dimples: Absent Cafe au lait spots: Absent Surgical incisions: No Palpation: Please see Pain drawing on Intake sheet for further detail. Midline spinal tenderness: Yes E6 Paralumbar tenderness: yes E6 Parathoracic tenderness: Yes E6 Buttocks tenderness: No E6 Special findings: yes Kyphotic alignment POSTURAL and MUSCULO-SKELETAL EVALUATION: Coronal Balance: NEUTRAL Recumbent testing: Patient is able to lay flat on back Sagittal Balance: NEUTRAL Shoulder Profile: LEVEL Pelvic Girdle: LEVEL Neck ROM: RESTRICTED Lumbar ROM: RESTRICTED Shoulder ROM: Symmetrical Hip ROM: Symmetrical Knee ROM: Symmetrical Hands: Normal appearance, symmetrical Feet: Normal appearance, Symmetrical VASCULAR STATUS : LEFT RIGHT Wrist Pulses INTACT INTACT Pedal Pulses (Dors. pedis & post.tibialis) INTACT INTACT Color NORMAL NORMAL Edema Absent Absent NEUROLOGIC EXAMINATION: Mental Status:Awake and alert, fully oriented, with normal attention, concentration and memory, and fluent, appropriate speech. Cranial Nerves: I: Olfactory not tested. II: Visual acuity normal, no visual field deficit noted with confrontation. III,IV: Normal pupillary reflexes & intact extraocular movements without nystagmus. V,: Intact symmetrical facial sensation. VII: Intact symmetrical facial motor movement VIII: Hearing intact. IX,X: Intact gag, swallow, & normal voice. XI: Sternocleidomastoid, trapezius function intact. XII: Tongue midline with normal movements. L'hermitte's Sign: Negative / absent Spurling'Sign: Absent bilaterally. Cubital percussion test: Absent bilaterally. Carloz-Tinel sign - Carpal region: Absent bilaterally. Straight Leg Raising: Absent bilaterally. Crossed straight leg raise: negative O8 MOTOR EXAM (0-5/5, N/T) STRENGTH RIGHT LEFT Shoulder Abd (not part of the LATRICIA score) 5 5 Elbow Flexors 5 5 Elbow Extensor 5 5 Wrist Dorsiflexors 5 5 Finger Abductor 5 5 [employer] 5 5 Hip Flexor (Not part of LATRICIA Motor score) 5 5 Knee Flexor 5 5 Knee Extensor 5 5 Ankle dorsiflexor 5 5 Ankle plantarflexion 5 5 Extensor hallucis 5 5 REFLEXES(0-4/2, NT) RIGHT LEFT Upper Extremities 2 2 Lower Extremities 2 2 Pathological Reflexes RIGHT LEFT Lorenzo's Present Absent Clonus Absent Absent Babinski Absent Absent # Indicates mechanical impairment Muscle appearance: Symmetrical, without signs of atrophy or dystrophy. Sensory system (0-4, N/T) Test type RU JANEEN RL LL Joint-Position 2 2 2 2 Vibration 2 2 2 2 Pain & LT sense 2 2 2 2 Dermatomal Deficit: None None C5-C6 C5-C6 Gait and Functional Evaluation: Ambulatory aids: Independent Romberg's test: Intact bilaterally Toe heel walk / heel-toe walk intact while maintaining satisfactory balance? yes Squatting/straightening w/o assistance to a min of 60 degree knee flexion? yes Single leg stance: intact Trendelenburg sign negative bilaterally Hand and finger dexterity intact bilaterally? yes Disdiadochokinesis examination negative bilaterally? yes Results multiple views of the cervical thoracic spine and reviewed in the office today. This demonstrates anterior wedging vertebral compression fractures T6-T7 with greater than 40% collapse of both of these levels. This is accompanied by the patient's pain. There is overall kyphosis in this area secondary to these fractures. Patient has an overall kyphotic alignment anyways. No other fracture dislocation noted at this time. MRI of the cervical and thoracic spine from outside facility is reviewed this demonstrates T6 inferior endplate fracture with compression as well as T7 superior endplate fracture with compression between 40 and 50% of T7 and 30 and 40% of T6. There is no acute retropulsion and central stenosis associated. There is reasonable amount of kyphosis associated with this fracture. No other dislocation or other fracture or lesion is noted at this time. Assessment and Plan Assessment: 1. T6 VCF 2. T7 VCF 3. Mechanical back pain Plan: Spine Surgery Risk Review Alba Arevalo is a 76-year-old female presenting for evaluation of mid back pain after a fall. It was my pleasure to have seen and examined Alba Arevalo. In our visit today we have had a chance to go over subjective complaints, physical examination findings and treatments including the natural course history without intervention and various interventional options. The patients imaging demonstrates T6 and T7 vertebral compression fractures. On physical exam, Alba Arevalo. demonstrates pain with palpation midline along T6 and T7 as well as ballottement the vehicle do with ambulation and daily activities secondary to pain. I have explained to the patient that as their condition progresses it will cause further neurological deficits and eventual paralysis. Based on the patients imaging, physical exam, and the rapid progression and disabling nature of their symptoms, at this time I recommend surgery in the form or a: T6 and T7 kyphoplasty. I discussed the risk and benefits of this procedure at length with Alba Arevalo.. The patient agreed to considered pursuing the procedure abovementioned. Prior to surgery, she should follow up with her PCP (Cardio, ID, IM etc) for clearance. Questions were invited and answered, and the patient wishes to proceed as outlined below. Currently, I am recommendin. T6 and T7 kyphoplasty 2. Follow up with PCP for surgical clearance 3. Review of surgical risks and benefits as well as an educational packet on the proposed surgical procedure. Risks: All surgical procedures come with inherent risks, including those related to positioning, anesthesia, intraoperative findings, and postoperative complications. It is important to understand that surgery does not come with any guarantee of a successful outcome as complications and adverse events are always possible. The patient was given a handout in office today discussing the surgical p rocedure and risks associated with the intervention, both of which were discussed with the patient. These risks include but are not limited to the following: * Experiencing same, different or even worse symptoms in back, neck, arms, or legs compared to before surgery. * Requiring further surgery or other forms of treatment presently or at some time in the future at same or other levels of the intended spine surgery. * On an extreme but fortunately relatively rare basis severe complication such as blindness, stroke, heart attack, temporary and/or permanent nerve injury, paralysis, coma, or may occur, sometimes without known explanation. * Surgical complications may include but are not limited to risk of infection, fluid accumulation in the surgical dissection site, including a seroma or hematoma, that requires additional surgery, wound drainage, bleeding, new numbness or weakness, vision changes/loss, spinal fluid leakage, non-healing and/or infected incision, headaches, difficulty or inability to swallow, hoarseness, hemopneumothorax, pneumothorax, impotence, retrograde ejaculation, vaginal dryness; injury to nerves, spinal cord, blood vessels, lymphatics or other vital organs (i.e., bowel injury, injury to the great vessels); heterotopic bone formation; complications related to the hardware such as screws, rods, cages including misplaced hardware, device failure, instrumentation at the wrong spine level, hardware fracture/breakage, or hardware loosening; vertebral failure of the spinal column above or below the newly placed hardware; retained surgical instrumentations or devices and the need for further surgery. * Medical risks of the planned spine surgery include but are not limited to generalized Infections to the whole body or local areas outside of the surgical site (sepsis), heart attack, bleeding, anaphylaxis, meningitis, seizure, epilepsy, hearing loss, burn sanders, laceration of the head or other areas of the body, bruising, hypersensitivity of the skin, bladder over distension; allergic reaction; shoulder injury related to positioning; fat, blood and air clots to other areas of the body like heart, lungs, brain; failure of internal organs such as lungs, kidneys, liver and excessive bleeding. If blood transfusions are necessary, note that transfusions may cause intolerance reactions such as anaphylaxis or other complex reactions. * Despite best efforts, the results of spine surgery might not heal in terms of bone, soft tissues such as skin, fascia, ligaments, and joints. Additionally, in order to achieve best possible results, spine surgery may be carried out beyond the initially planned levels and involve decompression, fusion including insertion of hardware at levels other than the original intended area of surgical interest change some portions of the procedure in order to ensure the best possible outcomes. * With spine surgery and spinal fusion, there are different off label uses of instrumentation (devices, implants and hardware) as well as biological substances (bone morphogenic proteins, demineralized bone matrix) as well as using extra bone from allograft sources (i.e. cadaver bone) or autograft (iliac crest bone, ribs, or the spine itself). The patient has been given information about these practices and their inherent risks and benefits. The patient has had a chance to review all the listed information, has been given print outs detailing this information, and has had all his/her questions answered to their satisfaction. It was my pleasure to have seen and examined Alba Arevalo.. In our visit today we have had a chance to go over my understanding of our patient's current condition, the natural course history without intervention and various interventional options. Questions were invited and answered, and the patient wishes to proceed as outlined above. I have seen and examined the patient for 25 minutes and we have spent more than 50% of the time in repeat and detailed counseling about the patient's condition, its natural course history with out and as much as can be predicted with surgery and re-review of various surgical treatment options. In conclusion, Alba Arevalo. requested we proceed with the above suggested surgery and are willing to accept risks and limitations of the suggested surgery as nature of the disease process and our best attempts at treatment for the condition. Thank you again for allowing us to be part of your patient's care. Please don't hesitate to contact me if you have any further questions. Signed and authenticated by: Jaime Montalvo [facility] [address] [place] [address], [address] [id number]
[2021-08-15] MEDS ORDERED: LACTATED RINGERS 1,000 ML IV ONE ×2 (12:13→15:47)
[2021-08-15] MEDS ORDERED: ONDANSETRON 4 MG/2 ML VIAL IVP ONE (12:30)
[2021-08-15] MEDS ORDERED: ESMOLOL 100 MG/10 ML VIAL ONE (13:02)
[2021-08-15] MEDS ORDERED: ROCURONIUM 10 MG/ML (5 ML VIAL) IV ONE (13:02)
[2021-08-15] MEDS ORDERED: GLYCOPYRROLATE 0.2 MG/ML 2 ML VIAL ONE (13:02)
[2021-08-15] MEDS ORDERED: METOPROLOL TARTRATE 5 MG/5 ML VIAL IVP ONE (13:02)
[2021-08-15] MEDS ORDERED: ETOMIDATE 2 MG/ML 10 ML VIAL ONE (13:02)
[2021-08-15] MEDS ORDERED: SUCCINYLCHOLINE CHLORIDE 100 MG/5 ML SYR IV ONE (13:02)
[2021-08-15] MEDS ORDERED: fentaNYL (PF) 50 MCG/ML 2 ML AMP ONE (13:02)
[2021-08-15] MEDS ORDERED: PROPOFOL 10 MG/ML 20 ML VIAL IV ONE (13:02)
[2021-08-15] MEDS ORDERED: LIDOCAINE 1% INJ 10MG/ML (20 ML MDV) ONE (13:02)
[2021-08-15] MEDS ORDERED: MIDAZOLAM 2 MG/2 ML VIAL ONE (13:02)
[2021-08-15] MEDS ORDERED: NEOSTIGMINE 1 MG/ML 10 ML VIAL ONE (13:02)
[2021-08-15 13:06] LABS: INR 1.6 (<1.2); Prothrombin Time 16.1 sec (9.0-12.0)
[2021-08-15] MEDS ORDERED: IOPAMIDOL M200 10 ML VIAL MISCELLANE ONE (13:42)
[2021-08-15] MEDS ORDERED: BUPIVACAIN-EPI 0.25%-1:200,000 30 ML VIAL SQ ONE ×2 (13:42)
--- NOTE | 2021-08-15 14:20 | P.OP ---
Date of Procedure: 08/15/21 Preoperative Diagnosis: 1. T6 VCF 40% collapse 2. T7 VCF 50% collapse with anterior wedging 3. Mechanical back pain Postoperative Diagnosis: 1. T6 VCF 40% collapse 2. T7 VCF 50% collapse with anterior wedging 3. Mechanical back pain Procedure(s) Performed: 1. T6 biopsy with kyphoplasty 2. T7 biopsy with kyphoplasty 3. Interpretation of intraoperative flouroscopy <1 hr 4. Needle localization under flouroscopic guidance of T6 and T7 Implants: [place] Anesthesia: GETA Surgeon: Jaime Scott Estimated Blood Loss (ml): 5 IV fluids (ml): 200 Urine output (ml): 0 Pathology: other (T6 and T7 vertebral body samples) Condition: stable Disposition: PACU Indications for Procedure: 76 yo female who has hx of multiple falls was found to have VCF of T6 and 7. She underwent MRI which showed these fractures, no neurological compromise and continued back pain despite conservative measures. She physical this time for kyphoplasty of these fractures to alleviate her symptoms. Discussed all the risks and benefits of surgery as outlined in the risk review. Her and her daughter are ready and willing to proceed with procedure. Description of Procedure: The patient was seen and examined in the preoperative area. All preoperative protocols were followed. Informed consent was obtained risks and benefits of the procedure were discussed at length. Risks including bleeding infection damage to the surrounding tissue and risk of reoperation were discussed with the patient. Risk of anesthesia up to and including was a discussed with the patient. These are outlined in the risk review. They were willing to accept these risks and all of the risks of surgery. The patient was given a weight- based dose of antibiotics in the form of 2 g Ancef. The patient was seen and evaluated by the anesthesia team who deemed them fit for surgery. The site was marked, the patient was willing to proceed with the procedure. The patient was transferred to the operative suite by the Department of anesthesia. They were then drifted off to sleep by the department anesthesia and GETAwas performed. The patient tolerated this well. Once confirmation of lines and ventilation the patient was transferred to a prone Gus Lazaro table very carefully. All bony prominences including wrists, elbows, axilla, chest, hips, and thighs, and feet were padded very well. Special attention was paid to the genitalia and these were padded accordingly. SCDs were placed on bilateral lower extremities and were connected. Arms were well padded and placed tucked at her side thumbs down and well-padded. Once in position, again we confirmed good ventilation capabilities and that lines were running appropriately. The patient's thoracic spine was then exposed. 1010s were lea hoa outlining the incision site. Standard alcohol was used to clean the incision site and allowed to dry. C-arm was used to biomark the patient and confirm level for incision which was marked with a skin marker. Operative briefing was performed with all teams and everyone in agreement to proceed. The patient was then prepped and draped in a normal sterile fashion. Timeout was then performed and all parties were in agreement with the procedure to be performed. Spinal needle was used for needle localization of T6 and T7 under fluoroscopic guidance. Once T6 and T7 were localized skin neck was made and Jamshidi was introduced transpedicular into T6 and T7 ensuring that we were anterior and midline. This was confirmed on AP and lateral fluoroscopy. We then sequentially biopsied the T6 and T7 vertebral bodies and sent these for pathology. We then drilled and curetted the T6 and T7 bodies respectively followed by balloon kyphoplasty insertion. This is inflated under lateral fluoroscopic guidance. Once this was completed the balloons were removed and we injected cement into T6 and T7. This is done under lateral fluoroscopic guidance once there was good fill in the area the cement was removed and the Jamshidi is removed with then took AP and lateral fluoroscopy finals which showed good fill of the T6 and T7 vertebral body good reduction of fracture as well as no cement extravasation of cement myelogram. Small amount of Marcaine with epinephrine is injected in the skin incisions incisions were then cleaned and closed with Monocryl 30 and skin glue. It was then cleaned and dressed sterilely with 4 x 4's and paper tape. The patient was transferred back to their hospital bed atraumatically. Patient was then awakened and extubated by the department of anesthesia having tolerated the procedure very well with no complications. They were transferred to the postoperative care unit in stable condition.
[2021-08-15 14:31] VITALS: TEMP 97.5
--- NOTE | 2021-08-15 14:37 | FL ---
Fluoroscopy HISTORY: Pain, fracture 91 seconds fluoroscopy time supplied to the referring clinician. 9 intraoperative C-arm images docum ent the procedure. See dictated report from orthopedic surgery.
[2021-08-15] MEDS ORDERED: ALBUTEROL NEBULIZED 2.5 MG/3 ML INHALATION ONE (14:48)
[2021-08-15 15:49] VITALS: RESP 18
[2021-08-15] MEDS ORDERED: traMADol 50 MG TAB ONE (16:29)
[2021-08-15] MEDS ORDERED: traMADol 50 MG TAB PO ONE (16:41)
[2021-08-15 16:49] VITALS: BP 162/88; PULSE 76
== END 2021-08-15 17:36 | disposition home or self-care (01) ==
LOC: OR 11:36
PROVIDERS: ATTEND Orthopaedic Surgery
DX: M48.54XA Collapsed vertebra, not elsewhere classified, thoracic region, initial encounter for fracture (principal); I48.91 Unspecified atrial fibrillation; J44.9 Chronic obstructive pulmonary disease, unspecified; K21.9 Gastro-esophageal reflux disease without esophagitis; E78.5 Hyperlipidemia, unspecified; I10 Essential (primary) hypertension; M19.90 Unspecified osteoarthritis, unspecified site; Z20.822 Contact with and (suspected) exposure to COVID-19; I69.311 Memory deficit following cerebral infarction; Z90.49 Acquired absence of other specified parts of digestive tract; Z90.710 Acquired absence of both cervix and uterus; Z98.890 Other specified postprocedural states; F41.9 Anxiety disorder, unspecified; F17.210 Nicotine dependence, cigarettes, uncomplicated; Z79.01 Long term (current) use of anticoagulants; Z79.51 Long term (current) use of inhaled steroids; Z79.899 Other long term (current) drug therapy; Z88.2 Allergy status to sulfonamides; Z88.8 Allergy status to other drugs, medicaments and biological substances; Z91.09 Other allergy status, other than to drugs and biological substances
CPT/HCPCS: 86900; 86901; 85610; 86850; 88307; 88311; 87635; 72020; 22513; 22515; C1713; J2250; J2710; J0690; J2405; J2001; J3010; J0330; J2704; J1170; Q9966

== ENCOUNTER 2021-08-21 11:33 | Emergency (ER) | payer MEDICARE ==
[2021-08-21 11:52] VITALS: BP 137/88; PULSE 73; RESP 17; TEMP 97
[2021-08-21] MEDS ORDERED: MORPHINE SULFATE 2 MG/ML SYRINGE IVP STA (12:17)
--- NOTE | 2021-08-21 12:23 | ED ---
General Adult HPI - General Chief complaint: Abdominal Pain Stated complaint: post op rt sided rib pain Time Seen by Provider: 08/21/21 12:10 Source: patient, family, RN notes reviewed, old records reviewed Mode of arrival: wheelchair Limitations: no limitations - History of Present Illness Initial comments: Well-appearing 76-year-old female presents to the emergency room with his daughter with complaints of right upper quadrant abdominal pain since August 15. Patient states on the she had surgery for T-spine compression fracture T6-T7 per her daughter. She states that they did call Dr. Scott to tell them that she continues to have this right upper quadrant abdominal pain. He told her it was likely from positioning during surgery but if pain continues to come to the emergency room for evaluation. Patient states that she is passing gas she is having normal bowel movements. She states that the pain does cause her to have some nausea. She denies any difficulty in breathing however with deep breaths it exacerbates pain. She denies any fevers. She does have a history of appendectomy, cholecystectomy, total hysterectomy. -: days(s) (6) Location: abdomen (Right upper quadrant) Radiation: non-radiation Severity scale (1-10): 5 Quality: sharp Consistency: constant Improves with: none Worsens with: movement, other (Deep breaths) Associated Symptoms: nausea/vomiting Treatments Prior to Arrival: other (norco Flexeril and tramadol) - Related Data Home Medications Medication Instructions Recorded Confirmed LORazepam [Ativan] 0.5 mg PO BID PRN 09/15/18 08/10/21 Warfarin Sodium [Jantoven] 1.25 mg PO Q48H 11/06/20 08/10/21 Warfarin [Coumadin] 2.5 mg PO Q48H 11/06/20 08/10/21 Albuterol Inhaler [Ventolin Hfa 2 puff INHALATION RT-QID PRN 03/20/21 08/10/21 Inhaler] Budesonide-Formot 160-4.5 Mcg 2 puff INHALATION RT-BID PRN 03/20/21 08/10/21 [Symbicort 160-4.5 Mcg Inhaler] Diltiazem HCl [Diltiazem HCl 24Hr 180 mg PO QAM 03/20/21 08/10/21 ER (CD)] Furosemide [Lasix] 20 mg PO BID 03/20/21 08/10/21 Isosorbide Mononitrate ER [Imdur] 30 mg PO QAM 03/20/21 08/10/21 Metoprolol Tartrate [Lopressor] 75 mg PO BID 03/20/21 08/10/21 Acetaminophen Tab [Tylenol] 1,000 mg PO DAILY 07/21/21 08/10/21 Docusate [Colace] 100 mg PO Q48H PRN 07/21/21 08/10/21 Melatonin [Melatonin Disolving 10 mg PO HS 07/21/21 08/10/21 Tablet] Atorvastatin [Lipitor] 40 mg PO HS 08/10/21 08/10/21 traMADol HCL 50 mg PO BID PRN 08/10/21 08/10/21 Previous Rx's Medication Instructions Recorded Cyclobenzaprine [Flexeril] 5 mg PO HS PRN #20 tab 08/15/21 traMADol HCL 0 mg PO Q4-6H PRN #18 tablet 08/15/21 Allergies Allergy/AdvReac Type Severity Reaction Status Date / Time Sulfa (Sulfonamide Allergy Unknown Verified 08/10/21 14:15 Antibiotics) adhesive tape AdvReac Rash/Hives, Verified 08/10/21 15:14 BLISTERS nisoldipine [From Sular] AdvReac Unknown Verified 08/10/21 14:15 Review of Systems ROS Statement: Those systems with pertinent positive or pertinent negative responses have been documented in the HPI. ROS Other: All systems not noted in ROS Statement are negative. 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 History of Any Multi-Drug Resistant Organisms: None Reported Past Surgical History: Cholecystectomy, Hysterectomy, Orthopedic Surgery, Tonsillectomy Additional Past Surgical History / Comment(s): coiled brain aneursym, juan foot surgery, colonoscopy Past Anesthesia/Blood Transfusion Reactions: No Reported Reaction Past Psychological History: Anxiety Smoking Status: Current every day smoker Past Alcohol Use History: Daily Past Drug Use History: None Reported - Past Family History Mother Family Medical History: No Reported History Father Family Medical History: No Reported History Additional Family Medical History / Comment(s): Father was healthy. General Exam Limitations: no limitations General appearance: alert, in no apparent distress Head exam: Present: atraumatic, normocephalic, normal inspection Eye exam: Present: normal appearance, EOMI. Absent: scleral icterus, conjunctival injection, periorbital swelling ENT exam: Present: normal exam, normal oropharynx, mucous membranes dry Neck exam: Present: normal inspection, full ROM. Absent: tenderness, meningismus, lymphadenopathy Respiratory exam: Present: normal lung sounds bilaterally. Absent: respiratory distress, wheezes, rales, rhonchi, stridor, chest wall tenderness, accessory muscle use Cardiovascular Exam: Present: regular rate, normal rhythm, normal heart sounds. Absent: systolic murmur, diastolic murmur, rubs, gallop, clicks GI/Abdominal exam: Present: soft, tenderness (Right upper quadrant), normal bowel sounds. Absent: distended, guarding, rebound, rigid, mass Extremities exam: Present: normal inspection, full ROM, normal capillary refill. Absent: tenderness, pedal edema, joint swelling, calf tenderness Back exam: Present: normal inspection, other (Surgical site with no erythema). Absent: tenderness, CVA tenderness (R), CVA tenderness (L), rash noted Neurological exam: Present: alert, oriented X3 Psychiatric exam: Present: normal affect, normal mood Skin exam: Present: warm, dry, intact, normal color. Absent: rash, cyanosis, diaphoretic, petechiae, pallor Course Vital Signs 08/21/21 11:47 Temperature 97.0 F L Pulse Rate 73 Respiratory 17 Rate Blood Pressure 137/88 O2 Sat by Pulse 97 Oximetry EKG Findings - EKG Results: EKG shows: atrial fibrillation (Ventricular rate of 76, QRS 0.82, QTc 0.468) Medical Decision Making - Medical Decision Making Well-appearing 76-year-old female presents to the emergency room with his daughter with complaints of right upper quadrant abdominal pain since August 15. Patient states on the she had surgery for T-spine compression fracture T6-T7 per her daughter. She states that they did call Dr. Scott to tell them that she continues to have this right upper quadrant abdominal pain. He told her it was likely from positioning during surgery but if pain continues to come to the emergency room for evaluation. Patient states that she is passing gas she is having normal bowel movements. She states that the pain does cause her to have some nausea. She denies any difficulty in breathing however with deep breaths it exacerbates pain. She denies any fevers. She does have a history of appendectomy, cholecystectomy, total hysterectomy. White blood cell count is 11.1, lactic acid is 2.4 and patient was given a liter of normal saline. Urine is negative for infection. EKG shows no ST elevation and troponin is negative at 0.012. CT the abdomen and pelvis shows no acute intra-abdominal process. Her abdomen is soft. She has been afebrile. She continues to have the right upper quadrant abdominal pain that is worse with movement. This is likely musculoskeletal pain from positioning during surgery. She was directed to follow up with her primary care doctor and return to the emergency room with any new or worsening symptoms. Case discussed with Dr Dickinson. - Lab Data Result diagrams: 08/21/21 13:12 08/21/21 13:12 Lab Results 08/21/21 08/21/21 08/21/21 Range/Units 13:12 13:12 13:12 WBC 11.1 H (3.8-10.6) k/uL RBC 4.07 (3.80-5.40) m/uL Hgb 14.9 (11.4-16.0) gm/dL Hct 44.5 (34.0-46.0) % MCV 109.1 H (80.0-100.0) fL MCH 36.5 H (25.0-35.0) pg MCHC 33.4 (31.0-37.0) g/dL RDW 12.6 (11.5-15.5) % Plt Count 270 (150-450) k/uL MPV 8.4 Neutrophils % 79 % Lymphocytes % 14 % Monocytes % 4 % Eosinophils % 0 % Basophils % 1 % Neutrophils # 8.8 H (1.3-7.7) k/uL Lymphocytes # 1.6 (1.0-4.8) k/uL Monocytes # 0.5 (0-1.0) k/uL Eosinophils # 0.0 (0-0.7) k/uL Basophils # 0.1 (0-0.2) k/uL Macrocytosis Moderate PT (9.0-12.0) sec INR (<1.2) APTT (22.0-30.0) sec Sodium 132 L (137-145) mmol/L Potassium 3.6 (3.5-5.1) mmol/L Chloride 92 L (98-107) mmol/L Carbon Dioxide 29 (22-30) mmol/L Anion Gap 11 mmol/L BUN 7 (7-17) mg/dL Creatinine 0.66 (0.52-1.04) mg/dL Est GFR (CKD-EPI)AfAm >90 (>60 ml/min/1.73 sqM) Est GFR (CKD-EPI)NonAf 86 (>60 ml/min/1.73 sqM) Glucose 95 (74-99) mg/dL Lactic Ac Sepsis Rflx Plasma Lactic Acid Lio 2.4 H* (0.7-2.0) mmol/L Calcium 9.2 (8.4-10.2) mg/dL Total Bilirubin 0.5 (0.2-1.3) mg/dL AST 31 (14-36) U/L ALT 18 (4-34) U/L Alkaline Phosphatase 107 (38-126) U/L Troponin I (0.000-0.034) ng/mL Total Protein 6.7 (6.3-8.2) g/dL Albumin 3.9 (3.5-5.0) g/dL Amylase 30 (30-110) U/L Lipase 18 L (23-300) U/L Urine Color Urine Appearance (Clear) Urine pH (5.0-8.0) Ur Specific [place] (1.001-1.035) Urine Protein (Negative) Urine Glucose (UA) (Negative) Urine Ketones (Negative) Urine Blood (Negative) Urine Nitrite (Negative) Urine Bilirubin (Negative) Urine Urobilinogen (<2.0) mg/dL Ur Leukocyte Esterase (Negative) Urine RBC (0-5) /hpf Urine WBC (0-5) /hpf Ur Squamous Epith Cells (0-4) /hpf Hyaline Casts (0-2) /lpf 08/21/21 08/21/21 08/21/21 Range/Units 13:12 13:12 13:51 WBC (3.8-10.6) k/uL RBC (3.80-5.40) m/uL Hgb (11.4-16.0) gm/dL Hct (34.0-46.0) % MCV (80.0-100.0) fL MCH (25.0-35.0) pg MCHC (31.0-37.0) g/dL RDW (11.5-15.5) % Plt Count (150-450) k/uL MPV Neutrophils % % Lymphocytes % % Monocytes % % Eosinophils % % Basophils % % Neutrophils # (1.3-7.7) k/uL Lymphocytes # (1.0-4.8) k/uL Monocytes # (0-1.0) k/uL Eosinophils # (0-0.7) k/uL Basophils # (0-0.2) k/uL Macrocytosis PT 23.5 H (9.0-12.0) sec INR 2.4 H (<1.2) APTT 32.4 H (22.0-30.0) sec Sodium (137-145) mmol/L Potassium (3.5-5.1) mmol/L Chloride (98-107) mmol/L Carbon Dioxide (22-30) mmol/L Anion Gap mmol/L BUN (7-17) mg/dL Creatinine (0.52-1.04) mg/dL Est GFR (CKD-EPI)AfAm (>60 ml/min/1.73 sqM) Est GFR (CKD-EPI)NonAf (>60 ml/min/1.73 sqM) Glucose (74-99) mg/dL Lactic Ac Sepsis Rflx Y Plasma Lactic Acid Lio (0.7-2.0) mmol/L Calcium (8.4-10.2) mg/dL Total Bilirubin (0.2-1.3) mg/dL AST (14-36) U/L ALT (4-34) U/L Alkaline Phosphatase (38-126) U/L Troponin I <0.012 (0.000-0.034) ng/mL Total Protein (6.3-8.2) g/dL Albumin (3.5-5.0) g/dL Amylase (30-110) U/L Lipase (23-300) U/L Urine Color Urine Appearance (Clear) Urine pH (5.0-8.0) Ur Specific [place] (1.001-1.035) Urine Protein (Negative) Urine Glucose (UA) (Negative) Urine Ketones (Negative) Urine Blood (Negative) Urine Nitrite (Negative) Urine Bilirubin (Negative) Urine Urobilinogen (<2.0) mg/dL Ur Leukocyte Esterase (Negative) Urine RBC (0-5) /hpf Urine WBC (0-5) /hpf Ur Squamous Epith Cells (0-4) /hpf Hyaline Casts (0-2) /lpf 08/21/21 Range/Units 14:34 WBC (3.8-10.6) k/uL RBC (3.80-5.40) m/uL Hgb (11.4-16.0) gm/dL Hct (34.0-46.0) % MCV (80.0-100.0) fL MCH (25.0-35.0) pg MCHC (31.0-37.0) g/dL RDW (11.5-15.5) % Plt Count (150-450) k/uL MPV Neutrophils % % Lymphocytes % % Monocytes % % Eosinophils % % Basophils % % Neutrophils # (1.3-7.7) k/uL Lymphocytes # (1.0-4.8) k/uL Monocytes # (0-1.0) k/uL Eosinophils # (0-0.7) k/uL Basophils # (0-0.2) k/uL Macrocytosis PT (9.0-12.0) sec INR (<1.2) APTT (22.0-30.0) sec Sodium (137-145) mmol/L Potassium (3.5-5.1) mmol/L Chloride (98-107) mmol/L Carbon Dioxide (22-30) mmol/L Anion Gap mmol/L BUN (7-17) mg/dL Creatinine (0.52-1.04) mg/dL Est GFR (CKD-EPI)AfAm (>60 ml/min/1.73 sqM) Est GFR (CKD-EPI)NonAf (>60 ml/min/1.73 sqM) Glucose (74-99) mg/dL Lactic Ac Sepsis Rflx Plasma Lactic Acid Lio (0.7-2.0) mmol/L Calcium (8.4-10.2) mg/dL Total Bilirubin (0.2-1.3) mg/dL AST (14-36) U/L ALT (4-34) U/L Alkaline Phosphatase (38-126) U/L Troponin I (0.000-0.034) ng/mL Total Protein (6.3-8.2) g/dL Albumin (3.5-5.0) g/dL Amylase (30-110) U/L Lipase (23-300) U/L Urine Color Light Yellow Urine Appearance Clear (Clear) Urine pH 7.0 (5.0-8.0) Ur Specific [place] 1.004 (1.001-1.035) Urine Protein Negative (Negative) Urine Glucose (UA) Negative (Negative) Urine Ketones Negative (Negative) Urine Blood Negative (Negative) Urine Nitrite Negative (Negative) Urine Bilirubin Negative (Negative) Urine Urobilinogen <2.0 (<2.0) mg/dL Ur Leukocyte Esterase Trace H (Negative) Urine RBC 1 (0-5) /hpf Urine WBC 3 (0-5) /hpf Ur Squamous Epith Cells 1 (0-4) /hpf Hyaline Casts 1 (0-2) /lpf Disposition Clinical Impression: Musculoskeletal pain Disposition: HOME SELF-CARE Condition: Good Instructions (If sedation given, give patient instructions): Musculoskeletal Pain (ED) Additional Instructions: Continue taking Tylenol as needed for pain, you can use moist heat to the site. Take deep breaths and cough at least every hour. Follow-up with your primary care doctor this week. Return to emergency room if any new or worsening symptoms. Is patient prescribed a controlled substance at d/c from ED?: No Referrals: Allie Bryant MD [STAFF PHYSICIAN] - 1-2 days Time of Disposition: 15:51
--- NOTE | 2021-08-21 13:23 | XR ---
EXAMINATION TYPE: XR chest 2V DATE OF EXAM: 08/21/2021 COMPARISON: 08/08/2021 TECHNIQUE: PA and lateral views submitted. HISTORY: Pain FINDINGS: The lungs are clear and there is no pneumothorax, pleural effusion, or focal pneumonia. Left-sided subsegmental atelectasis or infiltrate. Atherosclerotic change aorta. Changes of previous vertebropla sty. Hyperinflation suggests COPD. Diffuse osteopenia. Biapical pleural thickening. Surgical clips ri ght upper quadrant. IMPRESSION: 1. Left basilar atelectasis favored over infiltrate. 2. Correlate for COPD.
[2021-08-21 13:39] LABS: ALT 18 U/L (4-34); AST 31 U/L (14-36); African American GFR (CKD) >90 (>60 ml/min/1.73 sqM); Albumin 3.9 g/dL (3.5-5.0); Alkaline Phosphatase 107 U/L (38-126); Amylase 30 U/L (30-110); Anion Gap 11 mmol/L; Blood Urea Nitrogen 7 mg/dL (7-17); Calcium 9.2 mg/dL (8.4-10.2); Carbon Dioxide 29 mmol/L (22-30); Chloride 92 mmol/L (98-107); Glucose 95 mg/dL (74-99); Lipase 18 U/L (23-300); Non-African American GFR(CKD) 86 (>60 ml/min/1.73 sqM); Potassium 3.6 mmol/L (3.5-5.1); Sodium 132 mmol/L (137-145); Total Bilirubin 0.5 mg/dL (0.2-1.3); Total Protein 6.7 g/dL (6.3-8.2)
[2021-08-21 13:40] LABS: INR 2.4 (<1.2); Partial Thromboplastin Time 32.4 sec (22.0-30.0); Prothrombin Time 23.5 sec (9.0-12.0)
[2021-08-21] MEDS ORDERED: SODIUM CHLORIDE 0.9% 1,000 ML IV ONE (13:52)
[2021-08-21 14:14] LABS: Basophils # (A) 0.1 k/uL (0-0.2); Basophils % (A) 1 %; Eosinophils % (A) 0 %; HCT 44.5 % (34.0-46.0); HGB 14.9 gm/dL (11.4-16.0); Lymphocytes # (A) 1.6 k/uL (1.0-4.8); Lymphocytes % (A) 14 %; MCH 36.5 pg (25.0-35.0); MCHC 33.4 g/dL (31.0-37.0); MCV 109.1 fL (80.0-100.0); Macrocytosis Moderate; Mean Platelet Volume 8.4; Monocytes # (A) 0.5 k/uL (0-1.0); Monocytes % (A) 4 %; Neutrophils # (A) 8.8 k/uL (1.3-7.7); Neutrophils % (A) 79 %; Platelet Count 270 k/uL (150-450); RBC 4.07 m/uL (3.80-5.40); RDW 12.6 % (11.5-15.5); WBC 11.1 k/uL (3.8-10.6)
[2021-08-21 15:11] LABS: Appearance,Urine Clear (Clear); Bilirubin,Urine Negative (Negative); Blood,Urine Negative (Negative); Color,Urine Light Yellow; Glucose,Urine (UA) Negative (Negative); Hyaline Casts,Urine 1 /lpf (0-2); Ketones,Urine Negative (Negative); Leukocyte Esterase,Urine Trace (Negative); Nitrite,Urine Negative (Negative); Protein,Urine Negative (Negative); RBC,Urine 1 /hpf (0-5); Specific Gravity,Urine 1.004 (1.001-1.035); Squamous Epithelial Cell,Urine 1 /hpf (0-4); Urobilinogen,Urine <2.0 mg/dL (<2.0); WBC,Urine 3 /hpf (0-5)
--- NOTE | 2021-08-21 15:43 | CT ---
EXAMINATION TYPE: CT abdomen pelvis w con DATE OF EXAM: 08/21/2021 COMPARISON: 07/22/2021 HISTORY: ruq pain post tspine surgery CT DLP: 871.3 mGycm CONTRAST: CT scan of the abdomen and pelvis is performed without Oral Contrast and with IV Contrast, patient in jected with 100 mL of Isovue 300. FINDINGS: LUNG BASES-: No visible nodule. No infiltrate. There is evidence of cardiomegaly. LIVER/GB: The gallbladder is surgically absent. No space occupying hepatic lesion. Biliary tree is of normal caliber. PANCREAS: No inflammation. No distinct mass. SPLEEN: No splenic enlargement. No lesion seen. ADRENALS: No nodule. No thickening. KIDNEYS/BLADDER: No hydronephrosis. No nephrolithiasis. No distinct renal mass. Urinary bladder i s mildly distended. BOWEL: Normal appendix. Normal bowel caliber. No inflammation. GENITAL ORGANS: No gross abnormality. LYMPH NODES: No greater than 1cm abdominal or pelvic lymph nodes are appreciated. AORTA: No significant abnormality. OSSEOUS STRUCTURES: Degenerative changes lumbar spine. OTHER: No significant additional abnormality is seen. IMPRESSION: 1. No acute intra-abdominal process identified. 2. Mild distention urinary bladder.
== END 2021-08-21 16:10 | disposition home or self-care (01) ==
LOC: EC 11:33
DX: R10.11 Right upper quadrant pain (principal); I10 Essential (primary) hypertension; I48.91 Unspecified atrial fibrillation; J44.9 Chronic obstructive pulmonary disease, unspecified; E78.5 Hyperlipidemia, unspecified; K21.9 Gastro-esophageal reflux disease without esophagitis; M19.90 Unspecified osteoarthritis, unspecified site; F41.9 Anxiety disorder, unspecified; F17.200 Nicotine dependence, unspecified, uncomplicated; Z79.01 Long term (current) use of anticoagulants; Z79.51 Long term (current) use of inhaled steroids; Z79.899 Other long term (current) drug therapy
CPT/HCPCS: 36415; 80053; 82150; 83605; 83690; 84484; 85025; 85610; 85730; 81001; 71046; 74177; 99284; 96374; 96361; J2270; Q9967; 93005

== ENCOUNTER → 2021-10-29 | Outpatient (CLI) | payer MEDICARE ==
[2021-10-29 19:57] LABS: African American GFR (CKD) 102.6 (60.0-200.0); Anion Gap 14.1 mmol/L (10.00-18.00); BUN/Creat Ratio 15.33 Ratio (12.00-20.00); Blood Urea Nitrogen 9.2 mg/dL (9.0-27.0); Calcium 8.7 mg/dL (8.7-10.3); Carbon Dioxide 19.9 mmol/L (20.0-27.5); Non-African American GFR(CKD) 88.5 (60.0-200.0); Potassium 3.6 mmol/L (3.5-5.5)
== END | disposition home or self-care (01) ==
LOC: LABWHC1 13:47
PROVIDERS: ATTEND Nurse Practitioner Adult Health
DX: I10 Essential (primary) hypertension (principal)
CPT/HCPCS: 36415; 80048

== ENCOUNTER 2021-11-09 10:35 | Observation (INO) | payer MEDICARE ==
[2021-11-09] MEDS ORDERED: SODIUM CHLORIDE 0.9% 500 ML 500 ML IV STA (11:02)
--- NOTE | 2021-11-09 11:07 | ED ---
General Adult HPI - General Chief complaint: Fall Stated complaint: fall Time Seen by Provider: 11/09/21 10:45 Source: patient, RN notes reviewed, old records reviewed Mode of arrival: wheelchair Limitations: no limitations - History of Present Illness Initial comments: This is a 76-year-old female presents emergency Department stating that she fell. According to the daughter she fell on the bathroom crawled to the bedroom. It was about 1:30 morning but the patient did not want to come to the emergency department that time because she was tired. Daughter brought her in today because she continued to complain of neck pain and left arm pain. Patient has history of atrial fibrillation. Patient states she did hit her head and hurt her neck when she fell but she did not have any sites of bleeding. Patient denies any chest pain palpitations. Patient states she is having increasing shortness of breath lately. patient denies any abdominal pain patient denies nausea vomiting diarrhea. Patient denies any lower extremity pain. - Related Data Home Medications Medication Instructions Recorded Confirmed LORazepam [Ativan] 0.5 mg PO BID PRN 09/15/18 08/10/21 Warfarin Sodium [Jantoven] 1.25 mg PO Q48H 11/06/20 08/10/21 Warfarin [Coumadin] 2.5 mg PO Q48H 11/06/20 08/10/21 Albuterol Inhaler [Ventolin Hfa 2 puff INHALATION RT-QID PRN 03/20/21 08/10/21 Inhaler] Budesonide-Formot 160-4.5 Mcg 2 puff INHALATION RT-BID PRN 03/20/21 08/10/21 [Symbicort 160-4.5 Mcg Inhaler] Diltiazem HCl [Diltiazem HCl 24Hr 180 mg PO QAM 03/20/21 08/10/21 ER (CD)] Furosemide [Lasix] 20 mg PO BID 03/20/21 08/10/21 Isosorbide Mononitrate ER [Imdur] 30 mg PO QAM 03/20/21 08/10/21 Metoprolol Tartrate [Lopressor] 75 mg PO BID 03/20/21 08/10/21 Acetaminophen Tab [Tylenol] 1,000 mg PO DAILY 07/21/21 08/10/21 Docusate [Colace] 100 mg PO Q48H PRN 07/21/21 08/10/21 Melatonin [Melatonin Dissolving 10 mg PO HS 07/21/21 08/10/21 Tablet] Atorvastatin [Lipitor] 40 mg PO HS 08/10/21 08/10/21 traMADol HCL 50 mg PO BID PRN 08/10/21 08/10/21 Previous Rx's Medication Instructions Recorded Cyclobenzaprine [Flexeril] 5 mg PO HS PRN #20 tab 08/15/21 traMADol HCL 0 mg PO Q4-6H PRN #18 tablet 08/15/21 Allergies Allergy/AdvReac Type Severity Reaction Status Date / Time Sulfa (Sulfonamide Allergy Unknown Verified 08/10/21 14:15 Antibiotics) adhesive tape AdvReac Rash/Hives, Verified 08/10/21 15:14 BLISTERS nisoldipine [From Sular] AdvReac Unknown Verified 08/10/21 14:15 Review of Systems ROS Statement: Those systems with pertinent positive or pertinent negative responses have been documented in the HPI. ROS Other: All systems not noted in ROS Statement are negative. 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 History of Any Multi-Drug Resistant Organisms: None Reported Past Surgical History: Cholecystectomy, Hysterectomy, Orthopedic Surgery, Tonsillectomy Additional Past Surgical History / Comment(s): coiled brain aneursym, juan foot surgery, colonoscopy Past Anesthesia/Blood Transfusion Reactions: No Reported Reaction Past Psychological History: Anxiety Smoking Status: Current every day smoker Past Alcohol Use History: Daily Past Drug Use History: None Reported - Past Family History Mother Family Medical History: No Reported History Father Family Medical History: No Reported History Additional Family Medical History / Comment(s): Father was healthy. General Exam - General Exam Comments Initial Comments: GENERAL: Patient is well-developed and well-nourished. Patient is nontoxic and well- hydrated and is in mild distress. ENT: Neck is soft and supple. No significant lymphadenopathy is noted. Oropharynx is clear. Moist mucous membranes. Patient has left-sided neck pain. EYES: The sclera were anicteric and conjunctiva were pink and moist. Extraocular m ovements were intact and pupils were equal round and reactive to light. Eyelids were unremarkable. PULMONARY: Unlabored respirations. Good breath sounds bilaterally. No audible rales rhonchi or wheezing was noted. CARDIOVASCULAR: Patient has a irregular heart rate that is about 130 beats a minute. ABDOMEN: Soft and nontender with normal bowel sounds. SKIN: Skin is clear with no lesions or rashes and otherwise unremarkable. NEUROLOGIC: Patient is alert and oriented x3. Cranial nerves II through XII are grossly intact. Motor and sensory are also intact. Normal speech, volume and content. Symmetrical smile. MUSCULOSKELETAL: Normal extremities with adequate strength and full range of motion. Patient's mid left humerus is tender to palpation there is some ecchymosis. LYMPHATICS: No significant lymphadenopathy is noted PSYCHIATRIC: Normal psychiatric evaluation. Limitations: no limitations Course Vital Signs 11/09/21 11/09/21 11/09/21 10:41 10:51 11:03 Temperature 97.8 F Pulse Rate 152 H 129 H Respiratory 18 20 20 Rate Blood Pressure 110/75 116/87 O2 Sat by Pulse 98 97 Oximetry Medical Decision Making - Medical Decision Making EKG shows atrial fibrillation with rapid ventricular response at 120 bpm QRS is 80 QT interval 355 QTC is 431. Patient's EKG shows inverted T waves in precordial leads. EKG shows no ST segment elevation. Chest x-ray shows pneumonia. CT of the brain and C-spine showed no acute abnormality. Humerus x-ray shows no fracture. Chest x-ray shows pneumonia in the left lower lobe. Diagnosis was made at 1:15. I spoke with Dr. Tran he agreed to admit the patient admitted the patient I wrote admitting orders. I taken the room to reevaluate the patient patient's heart rate was 96. - Lab Data Result diagrams: 11/09/21 11:07 11/09/21 11:07 Lab Results 11/09/21 11/09/21 11/09/21 Range/Units 11:07 11:07 11:07 WBC 17.3 H (3.8-10.6) k/uL RBC 3.64 L (3.80-5.40) m/uL Hgb 13.4 (11.4-16.0) gm/dL Hct 39.4 (34.0-46.0) % MCV 108.2 H (80.0-100.0) fL MCH 36.9 H (25.0-35.0) pg MCHC 34.1 (31.0-37.0) g/dL RDW 14.4 (11.5-15.5) % Plt Count 342 (150-450) k/uL MPV 7.8 Neutrophils % 87 % Lymphocytes % 8 % Monocytes % 4 % Eosinophils % 0 % Basophils % 1 % Neutrophils # 15.1 H (1.3-7.7) k/uL Lymphocytes # 1.3 (1.0-4.8) k/uL Monocytes # 0.7 (0-1.0) k/uL Eosinophils # 0.0 (0-0.7) k/uL Basophils # 0.1 (0-0.2) k/uL Manual Slide Review Performed Macrocytosis Marked A PT 30.2 H (9.0-12.0) sec INR 3.0 H (<1.2) APTT 36.6 H (22.0-30.0) sec Sodium (137-145) mmol/L Potassium (3.5-5.1) mmol/L Chloride (98-107) mmol/L Carbon Dioxide (22-30) mmol/L Anion Gap mmol/L BUN (7-17) mg/dL Creatinine (0.52-1.04) mg/dL Est GFR (CKD-EPI)AfAm (>60 ml/min/1.73 sqM) Est GFR (CKD-EPI)NonAf (>60 ml/min/1.73 sqM) Glucose (74-99) mg/dL Calcium (8.4-10.2) mg/dL Magnesium (1.6-2.3) mg/dL Total Bilirubin (0.2-1.3) mg/dL AST (14-36) U/L ALT (4-34) U/L Alkaline Phosphatase (38-126) U/L Troponin I (0.000-0.034) ng/mL Total Protein (6.3-8.2) g/dL Albumin (3.5-5.0) g/dL Urine Color Yellow Urine Appearance Clear (Clear) Urine pH 6.5 (5.0-8.0) Ur Specific Raymond 1.009 (1.001-1.035) Urine Protein Negative (Negative) Urine Glucose (UA) Negative (Negative) Urine Ketones Negative (Negative) Urine Blood Negative (Negative) Urine Nitrite Negative (Negative) Urine Bilirubin Negative (Negative) Urine Urobilinogen <2.0 (<2.0) mg/dL Ur Leukocyte Esterase Small H (Negative) Urine RBC 1 (0-5) /hpf Urine WBC 2 (0-5) /hpf Ur Squamous Epith Cells 3 (0-4) /hpf 11/09/21 11/09/21 Range/Units 11:07 11:07 WBC (3.8-10.6) k/uL RBC (3.80-5.40) m/uL Hgb (11.4-16.0) gm/dL Hct (34.0-46.0) % MCV (80.0-100.0) fL MCH (25.0-35.0) pg MCHC (31.0-37.0) g/dL RDW (11.5-15.5) % Plt Count (150-450) k/uL MPV Neutrophils % % Lymphocytes % % Monocytes % % Eosinophils % % Basophils % % Neutrophils # (1.3-7.7) k/uL Lymphocytes # (1.0-4.8) k/uL Monocytes # (0-1.0) k/uL Eosinophils # (0-0.7) k/uL Basophils # (0-0.2) k/uL Manual Slide Review Macrocytosis PT (9.0-12.0) sec INR (<1.2) APTT (22.0-30.0) sec Sodium 131 L (137-145) mmol/L Potassium 3.1 L (3.5-5.1) mmol/L Chloride 95 L (98-107) mmol/L Carbon Dioxide 27 (22-30) mmol/L Anion Gap 9 mmol/L BUN 10 (7-17) mg/dL Creatinine 0.72 (0.52-1.04) mg/dL Est GFR (CKD-EPI)AfAm >90 (>60 ml/min/1.73 sqM) Est GFR (CKD-EPI)NonAf 82 (>60 ml/min/1.73 sqM) Glucose 126 H (74-99) mg/dL Calcium 8.1 L (8.4-10.2) mg/dL Magnesium 1.2 L (1.6-2.3) mg/dL Total Bilirubin 1.1 (0.2-1.3) mg/dL AST 33 (14-36) U/L ALT 28 (4-34) U/L Alkaline Phosphatase 96 (38-126) U/L Troponin I 0.071 H* (0.000-0.034) ng/mL Total Protein 6.2 L (6.3-8.2) g/dL Albumin 3.4 L (3.5-5.0) g/dL Urine Color Urine Appearance (Clear) Urine pH (5.0-8.0) Ur Specific Raymond (1.001-1.035) Urine Protein (Negative) Urine Glucose (UA) (Negative) Urine Ketones (Negative) Urine Blood (Negative) Urine Nitrite (Negative) Urine Bilirubin (Negative) Urine Urobilinogen (<2.0) mg/dL Ur Leukocyte Esterase (Negative) Urine RBC (0-5) /hpf Urine WBC (0-5) /hpf Ur Squamous Epith Cells (0-4) /hpf Disposition Clinical Impression: Atrial fibrillation with rapid ventricular response, Hypomagnesemia, Pneumonia Disposition: ADMITTED IP TO THIS HOSP Referrals: Benny Cohn MD [Primary Care Provider] - 1-2 days Time of Disposition: 13:53
[2021-11-09 11:42] LABS: Basophils # (A) 0.1 k/uL (0-0.2); Basophils % (A) 1 %; Eosinophils % (A) 0 %; HCT 39.4 % (34.0-46.0); HGB 13.4 gm/dL (11.4-16.0); Lymphocytes # (A) 1.3 k/uL (1.0-4.8); Lymphocytes % (A) 8 %; MCH 36.9 pg (25.0-35.0); MCHC 34.1 g/dL (31.0-37.0); MCV 108.2 fL (80.0-100.0); Macrocytosis Marked; Mean Platelet Volume 7.8; Monocytes # (A) 0.7 k/uL (0-1.0); Monocytes % (A) 4 %; Neutrophils # (A) 15.1 k/uL (1.3-7.7); Neutrophils % (A) 87 %; Platelet Count 342 k/uL (150-450); RBC 3.64 m/uL (3.80-5.40); RDW 14.4 % (11.5-15.5); WBC 17.3 k/uL (3.8-10.6)
[2021-11-09 11:45] LABS: Partial Thromboplastin Time 36.6 sec (22.0-30.0); Prothrombin Time 30.2 sec (9.0-12.0)
[2021-11-09 11:47] LABS: ALT 28 U/L (4-34); AST 33 U/L (14-36); African American GFR (CKD) >90 (>60 ml/min/1.73 sqM); Albumin 3.4 g/dL (3.5-5.0); Alkaline Phosphatase 96 U/L (38-126); Anion Gap 9 mmol/L; Blood Urea Nitrogen 10 mg/dL (7-17); Calcium 8.1 mg/dL (8.4-10.2); Carbon Dioxide 27 mmol/L (22-30); Chloride 95 mmol/L (98-107); Glucose 126 mg/dL (74-99); Magnesium 1.2 mg/dL (1.6-2.3); Non-African American GFR(CKD) 82 (>60 ml/min/1.73 sqM); Potassium 3.1 mmol/L (3.5-5.1); Sodium 131 mmol/L (137-145); Total Bilirubin 1.1 mg/dL (0.2-1.3); Total Protein 6.2 g/dL (6.3-8.2)
--- NOTE | 2021-11-09 11:55 | CT ---
EXAMINATION TYPE: CT brain mayra wo con DATE OF EXAM: 11/09/2021 COMPARISON: 11/06/2020 HISTORY: 76-year-old female trauma, pain after Fall CT DLP: 1381.3 mGycm Automated exposure control for dose reduction was used. Technique: Examination of the head was done in axial plane without intravenous contrast. Coronal and sagittal reconstructions performed. CT of the cervical spine was obtained in axial plane without intravenous injection of contrast mater ial. Coronal and sagittal reformatted images were obtained from the axial views for evaluation of f ractures, spinal alignment and canal. 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 Mild g eneralized supratentorial volume loss. There is no evidence of acute intracranial hemorrhage, acute ischemic changes, mass, mass-effect, or extra-axial fluid collection. There is no effacement of cerebral sulci or basal subarachnoid cister ns. There is no hydrocephalus. There is no midline shift. Maldonado-white matter distinction is preserv ed. Trace mucosal thickening ethmoid air cells. Some mild fluid in inferior left mastoid air cells questi onable clinical significance. Orbits and globes appear intact. No calvarial fracture. Cervical spine: No craniocervical junction abnormality, predental space widening, or prevertebral soft tissue swellin g. Degenerative changes at the C1 dens articulation. There is degenerative bony ankylosis along the left-sided C3-C4 facet joints. Otherwise, there is multilevel hypertrophic facet and uncovertebral joint arthropathy, left more so t oneill right. Degenerative grade 1 anterolisthesis C4-C5, C7-T1, T1-T2. Trace grade 1 retrolisthesis C5-C6. There is moderate degenerative disc disease mid to lower cervical spine. Disc osteophyte complexes li jesusita contribute to variable mild narrowing of the spinal canal. No acute fracture seen of the cervical spine. Variable mild bilateral neural foraminal stenoses. Partially visualized small left pleural effusion. There is at least moderate underlying emphysema. 3 mm subpleural pulmonary nodule periphery of the left upper lobe. Some prominent right supraclavicular lymph nodes measuring up to 1.1 cm nonspecific. Sagittal and coronal reformatted images confirm above findings. COMBINED IMPRESSION: 1. Mild generalized cerebral atrophy. 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 No acute intracranial abnormality seen. 2. No acute fracture of the cervical spine. Moderate multilevel spondylotic change with degenerative grade 1 spondylolisthesis C4-C5, C5-C6, C7-T1, and T1-T2. 3. Partially visualized liver and left pleural effusion. Chest radiograph to further evaluate. Backgr ound COPD with moderate emphysema. 4. There may be mild right supraclavicular lymphadenopathy measuring up to 1.1 cm. This is nonspecifi c. Correlate for any palpable abnormality. Nonemergent follow-up contrast enhanced CT soft tissue nec k can further evaluate.
--- NOTE | 2021-11-09 12:30 | XR ---
EXAMINATION TYPE: XR chest 2V, XR humerus 2 views LT DATE OF EXAM: 11/09/2021 COMPARISON: Chest 08/21/2021 HISTORY: 76-year-old female fall, chest and left humerus pain. FINDINGS: Chest: Heart upper limits of normal in size mild atherosclerotic arch calcifications. 2 levels of previous v ertebroplasty change in the mid thoracic spine. There is stable hyperinflation and mild interstitial prominence. Patchy and confluent consolidation at the left base. Left humerus: There is mild degenerative spurring at the left glenoid humeral joint. No acute humeral shaft fractur e. The elbow and shoulder articulations appear grossly intact. Assessment for elbow joint effusion li mited due to obliquity on the lateral view. Rounded densities along the medial soft tissues of the ar m couldn't be external artifact or phleboliths. IMPRESSION: 1. Chest: COPD and prominent new airspace disease at the left base suggestive of pneumonia. Follow-up after treatment to ensure clearance. 2. Left humerus: Mild GH joint OA. No acute osseous abnormality seen.
[2021-11-09] MEDS ORDERED: cefTRIAXone IN SWFI 1,000 MG/10 ML SYRINGE IVP STA (13:05)
[2021-11-09] MEDS ORDERED: ACETAMINOPHEN TAB 500 MG TAB PO STA (13:07)
[2021-11-09 13:50] LABS: Appearance,Urine Clear (Clear); Bilirubin,Urine Negative (Negative); Blood,Urine Negative (Negative); Color,Urine Yellow; Glucose,Urine (UA) Negative (Negative); Ketones,Urine Negative (Negative); Leukocyte Esterase,Urine Small (Negative); Nitrite,Urine Negative (Negative); PH, Urine 6.5 (5.0-8.0); Protein,Urine Negative (Negative); RBC,Urine 1 /hpf (0-5); Specific Gravity,Urine 1.009 (1.001-1.035); Squamous Epithelial Cell,Urine 3 /hpf (0-4); Urobilinogen,Urine <2.0 mg/dL (<2.0); WBC,Urine 2 /hpf (0-5)
[2021-11-09] MEDS ORDERED: AZITHROMYCIN 500 MG in SODIUM CHLORIDE 0.9% 250 ML IVPB STA (13:54)
[2021-11-09] MEDS ORDERED: PNEUMONIA PROTOCOL UTILIZED 1 EACH MISC PO PRN (13:54)
[2021-11-09] MEDS ORDERED: POTASSIUM CHLORIDE ER 20 MEQ TAB.ER PO STA (13:58)
[2021-11-09] MEDS ORDERED: POTASSIUM CHLORIDE 20 MEQ in WATER FOR INJECTION 1 100ML.BAG IVPB STA (13:58)
[2021-11-09] MEDS: MAGNESIUM SULFATE-D5W PMX 1 GM in DEXTROSE/WATER 1 100ML.BAG IVPB SCH ×2 (14:58→17:28)
[2021-11-09] MEDS ORDERED: LORazepam 0.5 MG TAB PO PRN (18:29)
[2021-11-09] MEDS ORDERED: ALBUTEROL NEBULIZED 2.5 MG/3 ML INHALATION PRN (18:29)
[2021-11-09] MEDS ORDERED: WARFARIN 2.5 MG TAB PO SCH (18:30)
[2021-11-09] MEDS ORDERED: WARFARIN 1.25 MG TAB PO ONE (21:15)
[2021-11-09] MEDS: metroNIDAZOLE-NS PMX 500 MG in SALINE 1 100ML.BAG IVPB SCH (21:42)
[2021-11-09] MEDS: ALPRAZolam 0.5 MG TAB PO PRN (21:42)
[2021-11-09] MEDS: SYMBICORT 160-4.5 MCG INHALER INHALATION SCH (22:08)
[2021-11-09] MEDS: IPRATROPIUM-ALBUTEROL 3 ML NEB INHALATION SCH (22:08)
[2021-11-09] MEDS: ACETAMINOPHEN TAB 500 MG TAB PO SCH (23:45)
[2021-11-09] MEDS: DILTIAZEM ORAL 30 MG TAB PO SCH (23:45)
[2021-11-09] MEDS: METOPROLOL TARTRATE 50 MG TAB PO SCH (23:46)
[2021-11-09] MEDS: ATORVASTATIN 40 MG TAB PO SCH (23:46)
[2021-11-10] MEDS: metroNIDAZOLE-NS PMX 500 MG in SALINE 1 100ML.BAG IVPB SCH ×3 (01:34→14:28)
--- NOTE | 2021-11-10 07:19 | XR ---
EXAMINATION TYPE: XR chest 2V DATE OF EXAM: 11/10/2021 COMPARISON: Chest x-ray one day earlier. HISTORY: Pneumonia. TECHNIQUE: Frontal and lateral views of the chest are obtained. FINDINGS: There is stable left basilar opacity. Less prominent but new right basilar opacity. Stable mild cardiomegaly with atherosclerotic change thoracic aorta. 2 level kyphoplasty midthoracic spine redemonstrated. IMPRESSION: Stable left basilar opacity consistent with acute infiltrate and/or atelectasis. New rig ht basilar acute infiltrate and/or atelectasis. Small to tiny bilateral pleural effusions are now fel t present.
[2021-11-10] MEDS: IPRATROPIUM-ALBUTEROL 3 ML NEB INHALATION SCH ×4 (07:44→19:54)
[2021-11-10] MEDS: SYMBICORT 160-4.5 MCG INHALER INHALATION SCH (07:44)
[2021-11-10 08:10] LABS: Basophils % (A) 0 %; Eosinophils # (A) 0.2 k/uL (0-0.7); Eosinophils % (A) 2 %; HCT 43.1 % (34.0-46.0); HGB 13.6 gm/dL (11.4-16.0); Lymphocytes # (A) 1.1 k/uL (1.0-4.8); Lymphocytes % (A) 12 %; MCH 35.8 pg (25.0-35.0); MCHC 31.7 g/dL (31.0-37.0); Macrocytosis Marked; Mean Platelet Volume 7.8; Monocytes # (A) 0.3 k/uL (0-1.0); Monocytes % (A) 3 %; Neutrophils # (A) 7.6 k/uL (1.3-7.7); Neutrophils % (A) 81 %; Platelet Count 353 k/uL (150-450); RBC 3.82 m/uL (3.80-5.40); RDW 14.3 % (11.5-15.5); WBC 9.3 k/uL (3.8-10.6)
[2021-11-10 08:13] LABS: MCV 112.8 fL (80.0-100.0)
[2021-11-10 08:17] LABS: INR 4.5 (<1.2); Prothrombin Time 44.5 sec (9.0-12.0)
[2021-11-10 08:28] LABS: African American GFR (CKD) >90 (>60 ml/min/1.73 sqM); Anion Gap 5 mmol/L; Blood Urea Nitrogen 10 mg/dL (7-17); Calcium 7.8 mg/dL (8.4-10.2); Carbon Dioxide 29 mmol/L (22-30); Chloride 100 mmol/L (98-107); Glucose 126 mg/dL (74-99); Magnesium 2.1 mg/dL (1.6-2.3); Non-African American GFR(CKD) 85 (>60 ml/min/1.73 sqM); Potassium 3.1 mmol/L (3.5-5.1); Sodium 134 mmol/L (137-145)
[2021-11-10] MEDS: ACETAMINOPHEN TAB 500 MG TAB PO SCH ×2 (09:14→21:03)
[2021-11-10] MEDS: LOSARTAN 50 MG TAB PO SCH (09:15)
[2021-11-10] MEDS: DILTIAZEM ORAL 30 MG TAB PO SCH ×3 (09:15→21:04)
[2021-11-10] MEDS: ISOSORBIDE MONONITRATE ER 30 MG TAB.ER.24H PO SCH (09:15)
[2021-11-10] MEDS: METOPROLOL TARTRATE 50 MG TAB PO SCH ×2 (09:15→21:02)
[2021-11-10] MEDS: POTASSIUM CHLORIDE ER 20 MEQ TAB.ER PO SCH ×2 (13:04→14:27)
--- NOTE | 2021-11-10 13:51 | P.CNOR ---
History of Present Illness - [facility] Consult date: 11/10/21 Consult reason: joint pain (Left shoulder pain) History of present illness: Patient is a 76-year-old female who presented to [facility] for evaluation after a fall that happened a few days ago. After the fall initially, she was not evaluated in the emergency room, she was brought in the next day because of discomfort to the head and neck region along with the shoulder. Multiple lab tests and imaging test were done after she arrived at [facility] on 11/09/2021. There are no acute fractures or dislocations noted on the head/cervical spine CT along with x-ray of the left shoulder. Patient was admitted to the hospital with concerns of pneumonia, she also was in A. fib with RVR. She has been admitted to the cardiac stepdown unit. Our orthopedic team was consulted with regards to the left shoulder pain. Patient was evaluated today at bedside, Dr. Garza was also available to examine the patient earlier. She is resting comfortably, she does admit to some shortness of breath. She notes the discomfort below shoulder mainly with movement. She states it has been getting better over the last few days. She denies any previous surgery left upper extremity. She states that the pain in the neck region is also much improved. She denies any paresthesias of the left upper extremity or right upper extremity. She denies any other orthopedic complaints at this time. 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 Her daughter lives with her. She uses a cane prn. She drives some. Smoking Status: Current every day smoker Past Alcohol Use History: Daily Additional Past Alcohol Use History / Comment(s): Pt is a 1 ppd smoker. She drinks occasionally - Past Family History Mother Family Medical History: No Reported History Father Family Medical History: No Reported History Additional Family Medical History / Comment(s): Father was healthy. Medications and Allergies Home Medications Medication Instructions Recorded Confirmed Type LORazepam [Ativan] 0.5 mg PO BID PRN 09/15/18 11/09/21 History Warfarin Sodium [Jantoven] 1.25 mg PO Q48H 11/06/20 11/09/21 History Warfarin [Coumadin] 2.5 mg PO Q48H 11/06/20 11/09/21 History Albuterol Inhaler [Ventolin Hfa 2 puff INHALATION RT-QID PRN 03/20/21 11/09/21 History Inhaler] Budesonide-Formot 160-4.5 Mcg 2 puff INHALATION RT-BID 03/20/21 11/09/21 History [Symbicort 160-4.5 Mcg Inhaler] Furosemide [Lasix] 40 mg PO BID 03/20/21 11/09/21 History Isosorbide Mononitrate ER [Imdur] 30 mg PO DAILY 03/20/21 11/09/21 History Metoprolol Tartrate [Lopressor] 100 mg PO BID 03/20/21 11/09/21 History Acetaminophen Tab [Tylenol] 1,000 mg PO BID 07/21/21 11/09/21 History Atorvastatin [Lipitor] 40 mg PO HS 08/10/21 11/09/21 History ALPRAZolam [Xanax] 0.5 mg PO HS PRN 11/09/21 11/09/21 History Diltiazem Oral [Cardizem Oral] 30 mg PO BID 11/09/21 11/09/21 History Ipratropium-Albuterol Nebulize 3 ml INHALATION RT-TID 11/09/21 11/09/21 History [Duoneb 0.5 mg-3 mg/3 ml Soln] Losartan [Cozaar] 50 mg PO DAILY 11/09/21 11/09/21 History Allergies Allergy/AdvReac Type Severity Reaction Status Date / Time Sulfa (Sulfonamide Allergy Unknown Verified 11/09/21 14:29 Antibiotics) adhesive tape AdvReac Rash/Hives, Verified 11/09/21 14:29 BLISTERS nisoldipine [From Sular] AdvReac Unknown Verified 11/09/21 14:29 Physical Examination Left upper extremity: No obvious open lesions or sores are visualized throughout the extremity No areas of soft tissue swelling, no areas of erythema Generalized discomfort with palpation of the glenohumeral joint line, no significant tenderness through the clavicle, lower arm near the elbow, forearm, hand or wrist Passive and active range of motion of the shoulder intact, she is limited from full forward elevation and abduction due to pain. Strength testing of the shoulder was not assessed Range of motion of the elbow with extension and flexion are intact, wrist extension, wrist flexion and undergraduate intern are all intact. No apparent strength focal deficits appreciated Sensory exam to light touch to the extremity are intact in radial/ulnar pulses are 2+ Results - Labs Labs: Abnormal Lab Results - Last 24 Hours (Table) 11/09/21 11/10/21 11/10/21 Range/Units 11:07 07:31 07:31 MCV 112.8 H (80.0-100.0) fL MCH 35.8 H (25.0-35.0) pg Macrocytosis Marked A PT 44.5 H (9.0-12.0) sec INR 4.5 H (<1.2) Sodium (137-145) mmol/L Potassium (3.5-5.1) mmol/L Glucose (74-99) mg/dL Calcium (8.4-10.2) mg/dL Ur Leukocyte Esterase Small H (Negative) 11/10/21 Range/Units 07:31 MCV (80.0-100.0) fL MCH (25.0-35.0) pg Macrocytosis PT (9.0-12.0) sec INR (<1.2) Sodium 134 L (137-145) mmol/L Potassium 3.1 L (3.5-5.1) mmol/L Glucose 126 H (74-99) mg/dL Calcium 7.8 L (8.4-10.2) mg/dL Ur Leukocyte Esterase (Negative) H & H 11/09/21 11/10/21 Range/Units 11:07 07:31 Hgb 13.4 13.6 (11.4-16.0) gm/dL Hct 39.4 43.1 (34.0-46.0) % Coagulation 11/09/21 11/10/21 Range/Units 11:07 07:31 INR 3.0 H 4.5 H (<1.2) Result Diagrams: 11/10/21 07:31 11/10/21 07:31 - Diagnostic results Shoulder x-ray: report reviewed, image reviewed (Images were reviewed of the left humerus, this included some films of the shoulder, these are not dedicated films. Mild osteoarthritic changes of the glenohumeral joint. No fractures or dislocations were appreciated.) Assessment and Plan Assessment: Left shoulder pain Mild left shoulder osteoarthritis Status post fall Other medical comorbidities Plan: Dr. Bonner was also able to examine the patient today and discussed treatment. No orthopedic surgical intervention recommended at this time Recommend conservative management, this will include icing of the shoulder along with use of Tylenol/anti-inflammatories. Recommend discussion with cardiology before initiation of an anti-inflammatory She can weight-bear as tolerated with the left upper extremity, and recommend gentle range of motion exercises start. Avoid heavy lifting with the extremity Recommend follow-up in the outpatient setting on an as-needed basis Our follow-up information placed in chart, please don't hesitate to contact our service there are any further questions Time with Patient: Less than 30
[2021-11-10] MEDS: AZITHROMYCIN 500 MG TAB PO SCH (14:27)
--- NOTE | 2021-11-10 15:31 | P.CRDCN ---
History of Present Illness History of present illness: HISTORY OF PRESENTING ILLNESS Patient is a pleasant 76-year-old female with a history of persistent atrial fibrillation, hyperlipidemia, hypertension, COPD, tobacco abuse, nonobstructive coronary artery disease and recent fall who presents after a fall. She follows in the office with Dr. Manzanares. She has been having uncontrolled atrial fibrillation and was recently seen in the office and Cardizem was added as well as Lasix was increased from 20 twice a day to 40 twice a day given increased lower extremity edema. Her edema did improve and she had been feeling fairly well however daughter states that the night before she felt she was somewhat confused. Patient does not recall this however got up in the middle the night going to the bathroom and apparently had a fall, does not appear syncope and no headedness or loss of consciousness. She believes she was somewhat unstable on her feet. Unclear if she tripped on something. She was unable to get up off the floor for a number of hours and eventually EMS was called and brought to emergency department. Patient was found to be in A. fib with RVR with heart rates in the 120s to 140s. Showed stable left basilar opacity consistent with infiltrate and/or atelectasis as well as new right basilar infiltrate. She admits to a "head cold". She has had a mild cough recently however no fevers or chills. Currently deines any chest pain or pressure or tightness. Initial white blood cell count 17.3, improved to 9.3, hemoglobin 13.4, 131, potassium 3.1, troponin 0.071, albumin 3.4 REVIEW OF SYSTEMS At the time of my exam: CONSTITUTIONAL: Denies fever or chills. CARDIOVASCULAR: Denies chest pain, + chronic shortness of breath, no orthopnea, PND or palpitations. RESPIRATORY: +cough. GASTROINTESTINAL: Denies abdominal pain, diarrhea, constipation, nausea or vomiting. MUSCULOSKELETAL: Denies myalgias. NEUROLOGIC: Denies numbness, tingling or weakness. ENDOCRINE: Denies fatigue, weight change, polydipsia or polyurina. GENITOURINARY: Denies burning, hematuria or urgency with micturation. HEMATOLOGIC: Denies history of anemia or bleeding. PHYSICAL EXAMINATION Vital signs reviewed. CONSTITUTIONAL: No apparent distress. HEENT: Head is normocephalic. Pupils are equal, round. Sclerae anicteric. Mucous membranes of the mouth are moist. No JVD. No carotid bruit. CHEST EXAMINATION: Lungs are clear to auscultation. No chest wall tenderness is noted on palpation or with deep breathing. HEART EXAMINATION: Regular rate and rhythm. S1, S2 heard. No murmurs, gallops or rub. ABDOMEN: Soft, nontender. Positive bowel sounds. EXTREMITIES: 2+ peripheral pulses, no lower extremity edema and no calf tenderness. NEUROLOGIC EXAMINATION: Patient is awake, alert and oriented x3. ASSESSMENT 1. Fall with unclear details, appears may be a mechanical fall and no loss of consciousness 2. New right infiltrate, leukocytosis and cough concerning for pneumonia 3. A. fib with RVR, has been mildly elevated as an outpatient as well 4. Mild CAD I prior heart catheterization 5. Non-STEMI, likely type II mechanism related to fall, being down on the floor or pneumonia. Currently no significant angina-type symptoms 6. Tobacco abuse 7. Electrolyte abnormalities 8. Prior mild cardiomyopathy PLAN We will check a repeat 2-D echo to evaluate for left ventricular function. Adjust medications to help control A. fib. This is patient's first fall and still appears to be a good anticoagulation candidate however if significant falls would stop anticoagulant. Further recommendations to follow. 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 History of Any Multi-Drug Resistant Organisms: None Reported Past Surgical History: Cholecystectomy, Hysterectomy, Orthopedic Surgery, Tonsillectomy Additional Past Surgical History / Comment(s): coiled brain aneursym, juan foot surgery, colonoscopy Past Anesthesia/Blood Transfusion Reactions: No Reported Reaction Past Psychological History: Anxiety Additional Psychological History / Comment(s): Pt resides in her own home. Her daughter lives with her. She uses a cane prn. She drives some. Smoking Status: Current every day smoker Past Alcohol Use History: Daily Additional Past Alcohol Use History / Comment(s): Pt is a 1 ppd smoker. She drinks occasionally - Past Family History Mother Family Medical History: No Reported History Father Family Medical History: No Reported History Additional Family Medical History / Comment(s): Father was healthy. Medications and Allergies Home Medications Medication Instructions Recorded Confirmed Type LORazepam [Ativan] 0.5 mg PO BID PRN 09/15/18 11/09/21 History Warfarin Sodium [Jantoven] 1.25 mg PO Q48H 11/06/20 11/09/21 History Warfarin [Coumadin] 2.5 mg PO Q48H 11/06/20 11/09/21 History Albuterol Inhaler [Ventolin Hfa 2 puff INHALATION RT-QID PRN 03/20/21 11/09/21 History Inhaler] Budesonide-Formot 160-4.5 Mcg 2 puff INHALATION RT-BID 03/20/21 11/09/21 History [Symbicort 160-4.5 Mcg Inhaler] Furosemide [Lasix] 40 mg PO BID 03/20/21 11/09/21 History Isosorbide Mononitrate ER [Imdur] 30 mg PO DAILY 03/20/21 11/09/21 History Metoprolol Tartrate [Lopressor] 100 mg PO BID 03/20/21 11/09/21 History Acetaminophen Tab [Tylenol] 1,000 mg PO BID 07/21/21 11/09/21 History Atorvastatin [Lipitor] 40 mg PO HS 08/10/21 11/09/21 History ALPRAZolam [Xanax] 0.5 mg PO HS PRN 11/09/21 11/09/21 History Diltiazem Oral [Cardizem Oral] 30 mg PO BID 11/09/21 11/09/21 History Ipratropium-Albuterol Nebulize 3 ml INHALATION RT-TID 11/09/21 11/09/21 History [Duoneb 0.5 mg-3 mg/3 ml Soln] Losartan [Cozaar] 50 mg PO DAILY 11/09/21 11/09/21 History Allergies Allergy/AdvReac Type Severity Reaction Status Date / Time Sulfa (Sulfonamide Allergy Unknown Verified 11/09/21 14:29 Antibiotics) adhesive tape AdvReac Rash/Hives, Verified 11/09/21 14:29 BLISTERS nisoldipine [From Sular] AdvReac Unknown Verified 11/09/21 14:29 Physical Exam Vitals: Vital Signs Temp Pulse Pulse Resp BP BP BP 11/10/21 14:00 84 18 11/10/21 13:54 11/10/21 12:00 98.0 F 84 18 93/64 11/10/21 08:00 98.1 F 111 H 20 109/78 11/10/21 07:54 100 11/10/21 07:44 100 11/10/21 06:06 115/77 11/10/21 04:00 97.3 F L 88 20 110/75 11/09/21 23:30 97.4 F L 112 H 18 103/63 11/09/21 22:21 100 11/09/21 22:10 110 H 11/09/21 20:55 97.8 F 110 H 16 122/72 11/09/21 18:47 125 H 16 116/70 BP BP Pulse Ox 11/10/21 14:00 11/10/21 13:54 97 11/10/21 12:00 97 11/10/21 08:00 99 11/10/21 07:54 11/10/21 07:44 11/10/21 06:06 113/78 116/68 11/10/21 04:00 99 11/09/21 23:30 97 11/09/21 22:21 11/09/21 22:10 11/09/21 20:55 97 11/09/21 18:47 98 Intake and Output 11/10/21 11/10/21 11/10/21 06:59 14:59 22:59 Intake Total 240 Balance 240 Intake: Oral 240 Other: Voiding Method Toilet Toilet # Voids 1 Weight 72 kg Results 11/10/21 07:31 11/10/21 07:31 Coagulation 11/10/21 Range/Units 07:31 PT 44.5 H (9.0-12.0) sec CBC 11/10/21 Range/Units 07:31 WBC 9.3 (3.8-10.6) k/uL RBC 3.82 (3.80-5.40) m/uL Hgb 13.6 (11.4-16.0) gm/dL Hct 43.1 (34.0-46.0) % Plt Count 353 (150-450) k/uL Comprehensive Metabolic Panel 11/10/21 Range/Units 07:31 Sodium 134 L (137-145) mmol/L Potassium 3.1 L (3.5-5.1) mmol/L Chloride 100 (98-107) mmol/L Carbon Dioxide 29 (22-30) mmol/L BUN 10 (7-17) mg/dL Creatinine 0.68 (0.52-1.04) mg/dL Glucose 126 H (74-99) mg/dL Calcium 7.8 L (8.4-10.2) mg/dL Current Medications Generic Name Dose Route Start Last Admin Trade Name Freq PRN Reason Stop Dose Admin Acetaminophen 1,000 mg 11/09/21 21:00 11/10/21 09:14 Acetaminophen Tab 500 Mg Tab PO 1,000 mg BID LEELEE Administration Albuterol Sulfate 2.5 mg 11/09/21 18:29 Albuterol Nebulized 2.5 Mg/3 Ml INHALATION RT-QID PRN Shortness Of Breath Albuterol/Ipratropium 3 ml 11/09/21 20:00 11/10/21 11:55 Ipratropium-Albuterol 3 Ml Neb INHALATION Not Given RT-TID LEELEE Alprazolam 0.5 mg 11/09/21 18:29 11/09/21 21:42 Alprazolam 0.5 Mg Tab PO 0.5 mg HS PRN Administration Insomnia Atorvastatin Calcium 40 mg 11/09/21 21:00 11/09/21 23:46 Atorvastatin 40 Mg Tab PO 40 mg HS LEELEE Administration Azithromycin 500 mg 11/10/21 15:00 11/10/21 14:27 Azithromycin 500 Mg Tab PO 11/11/21 15:01 500 mg DAILY@1500 LEELEE Administration Protocol Budesonide/Formoterol Fumarate 2 puff 11/09/21 20:00 11/10/21 07:44 Symbicort 160-4.5 Mcg Inhaler INHALATION 2 puff RT-BID LEELEE Administration Diltiazem HCl 30 mg 11/09/21 21:00 11/10/21 09:15 Diltiazem Oral 30 Mg Tab PO 30 mg BID LEELEE Administration Ceftriaxone Sodium 2 gm/ 50 mls @ 100 mls/hr 11/10/21 09:00 11/10/21 10:04 Sodium Chloride IVPB 11/13/21 09:29 100 mls/hr Q24HR LEELEE Administration Protocol Metronidazole 500 mg/ IV 100 mls @ 100 mls/hr 11/10/21 06:00 11/10/21 14:28 Solution IVPB 100 mls/hr Q8H LEELEE Administration Protocol Isosorbide Mononitrate 30 mg 11/10/21 09:00 11/10/21 09:15 Isosorbide Mononitrate Er 30 Mg Tab.Er.24h PO 30 mg DAILY LEELEE Administration Lorazepam 0.5 mg 11/09/21 18:29 Lorazepam 0.5 Mg Tab PO BID PRN Anxiety Losartan Potassium 50 mg 11/10/21 09:00 11/10/21 09:15 Losartan 50 Mg Tab PO 50 mg DAILY LEELEE Administration Metoprolol Tartrate 100 mg 11/09/21 21:00 11/10/21 09:15 Metoprolol Tartrate 50 Mg Tab PO 100 mg BID LEELEE Administration Miscellaneous Information 1 each 11/09/21 13:54 Pneumonia Protocol Utilized 1 Each Misc PO ONCE PRN Per Protocol Miscellaneous Information 1 each 11/09/21 19:03 Warfarin Per Pharmacy MISCELLANE DIRECTED PRN Per Protocol Warfarin Sodium 0 mg 11/10/21 18:00 11/10/21 15:18 Warfarin 0.5 Mg Tab PO 11/10/21 18:01 Not Given ONCE@1800 ONE Intake and Output 11/10/21 11/10/21 11/10/21 06:59 14:59 22:59 Intake Total 240 Balance 240 Intake: Oral 240 Other: Voiding Method Toilet Toilet # Voids 1 Weight 72 kg 11/10/21 07:31 11/10/21 07:31
--- NOTE | 2021-11-10 16:49 | P.HPIM ---
History of Present Illness H&P Date: 11/09/21 Chief Complaint: Fall This is a pleasant 76-year-old patient who follows with Dr. Cohn. Chronic stable medical conditions include GERD, hyperlipidemia, hypertension, osteoart hritis, some memory loss from prior strokes, brain aneurysm, atrial fibrillation. Patient lives with her Dr. Stallings. I saw the patient and the ER with her other daughter. Patient say she has been recently getting a bit more short of breath. Also some chest pressure. Some dizziness. She went to the bathroom and then she fell down. Weak and tired. Also had some palpitation. In the ER atrial fibrillation with heart rate uncontrolled at 128. Also has a congested cough. Smoker. Tired rundown. Review of systems: GEN.: Tired EYES: None HEENT: None NECK: None RESPIRATORY: As above CARDIOVASCULAR: As above GASTROINTESTINAL: None GENITOURINARY: None MUSCULOSKELETAL: Joint pains LYMPHATICS: None HEMATOLOGICAL: None PSYCHIATRY: None NEUROLOGICAL: None Past medical history to include: Atrial fibrillation, COPD, GERD, hypertension, hyperlipidemia, osteoarthritis, stroke 3 with some memory issues, brain aneurysm with a quiet, anxiety Social history: Smokes a pack a day. Lives with her Dr. Stallings. Alcohol occasionally. Family history: Reviewed, noncontributory to presentation Physical examination: VITAL SIGNS: 97.8, 152, 18, 110/75, 98% room air GENERAL: BMI 30, declining but awake, tired, short of breath. EYES: Pupils equal. Conjunctiva normal. HEENT: External appearance of nose and ears normal, oral cavity grossly normal. NECK: JVD not raised; masses not palpable. HEART: Heart sounds irregular; no edema. LUNGS: Respiratory rate increased; decreased breath sounds, wheezing. ABDOMEN: Soft, nontender, liver spleen not palpable, no masses palpable. PSYCH: Alert and oriented x3; mood and affect normal. MUSCULOSKELETAL:No Clubbing/cyanosis;muscles-grossly intact. OA NEUROLOGICAL: Cranial nerves grossly intact; no facial asymmetry, power and sensation grossly intact. LYMPHATICS: No lymph nodes palpable in the axilla and neck INVESTIGATIONS, reviewed in the clinical context: White count 7.3 hemoglobin 13.4 INR 3 sodium 131 potassium 3.1 creatinine 0.7 to Troponin I 0.071 UA: Leukoesterase small COVID 19 PCR: Not detected EKG tracing personally reviewed by me-atrial flutter fibrillation rate 128 Chest x-ray film personally reviewed by me-left basilar infiltrate Assessment and plan: -Persistent atrial fibrillation with rapid ventricular rate Cardizem 30 mg by mouth 3 times a day Lopressor 100 mg twice a day. Cardiology consulted. On Lopressor. Coumadin -Basilar pneumonia suspected gram-negative organism IV ceftriaxone Zithromax -Acute COPD exacerbation in a current smoker DuoNeb 4 times a day, nebulized Pulmicort, -Chronic nicotine dependence, cigarette smoker Nicotine patch -Possible acute non-Q wave NE, also could be type II from hemodynamic mismatch 2-D echo. Follow with cardiology. Aspirin -GERD Pepcid as needed -Essential hypertension Lopressor 100 mg twice a day. 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 Cardiology consultation. IV ceftriaxone. DuoNeb. Nebulized Pulmicort. Oral prednisone. Given the complexity and severity of patient's condition expect the patient to be in the hospital at least for 2 overnights 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 History of Any Multi-Drug Resistant Organisms: None Reported Past Surgical History: Cholecystectomy, Hysterectomy, Orthopedic Surgery, Tonsillectomy Additional Past Surgical History / Comment(s): coiled brain aneursym, juan foot surgery, colonoscopy Past Anesthesia/Blood Transfusion Reactions: No Reported Reaction Past Psychological History: Anxiety Smoking Status: Current every day smoker Past Alcohol Use History: Daily Past Drug Use History: None Reported - Past Family History Mother Family Medical History: No Reported History Father Family Medical History: No Reported History Additional Family Medical History / Comment(s): Father was healthy. Medications and Allergies Home Medications Medication Instructions Recorded Confirmed Type LORazepam [Ativan] 0.5 mg PO BID PRN 09/15/18 11/09/21 History Warfarin Sodium [Jantoven] 1.25 mg PO Q48H 11/06/20 11/09/21 History Warfarin [Coumadin] 2.5 mg PO Q48H 11/06/20 11/09/21 History Albuterol Inhaler [Ventolin Hfa 2 puff INHALATION RT-QID PRN 03/20/21 11/09/21 History Inhaler] Budesonide-Formot 160-4.5 Mcg 2 puff INHALATION RT-BID 03/20/21 11/09/21 History [Symbicort 160-4.5 Mcg Inhaler] Furosemide [Lasix] 40 mg PO BID 03/20/21 11/09/21 History Isosorbide Mononitrate ER [Imdur] 30 mg PO DAILY 03/20/21 11/09/21 History Metoprolol Tartrate [Lopressor] 100 mg PO BID 03/20/21 11/09/21 History Acetaminophen Tab [Tylenol] 1,000 mg PO BID 07/21/21 11/09/21 History Atorvastatin [Lipitor] 40 mg PO HS 08/10/21 11/09/21 History ALPRAZolam [Xanax] 0.5 mg PO HS PRN 11/09/21 11/09/21 History Diltiazem Oral [Cardizem Oral] 30 mg PO BID 11/09/21 11/09/21 History Ipratropium-Albuterol Nebulize 3 ml INHALATION RT-TID 11/09/21 11/09/21 History [Duoneb 0.5 mg-3 mg/3 ml Soln] Losartan [Cozaar] 50 mg PO DAILY 11/09/21 11/09/21 History Allergies Allergy/AdvReac Type Severity Reaction Status Date / Time Sulfa (Sulfonamide Allergy Unknown Verified 11/09/21 14:29 Antibiotics) adhesive tape AdvReac Rash/Hives, Verified 11/09/21 14:29 BLISTERS nisoldipine [From Sular] AdvReac Unknown Verified 11/09/21 14:29 Physical Exam Vitals: Vital Signs Temp Pulse Resp BP Pulse Ox 11/09/21 18:47 125 H 16 116/70 98 11/09/21 14:30 101 H 16 114/77 92 L 11/09/21 11:03 129 H 20 116/87 97 11/09/21 10:51 20 11/09/21 10:41 97.8 F 152 H 18 110/75 98 Intake and Output 11/09/21 11/09/21 11/09/21 06:59 14:59 22:59 Other: Weight 72.575 kg Results CBC & Chem 7: 11/10/21 07:31 11/10/21 07:31 Labs: Abnormal Lab Results - Last 24 Hours (Table) 11/09/21 11/09/21 11/09/21 Range/Units 11:07 11:07 11:07 WBC 17.3 H (3.8-10.6) k/uL RBC 3.64 L (3.80-5.40) m/uL MCV 108.2 H (80.0-100.0) fL MCH 36.9 H (25.0-35.0) pg Neutrophils # 15.1 H (1.3-7.7) k/uL Macrocytosis Marked A PT 30.2 H (9.0-12.0) sec INR 3.0 H (<1.2) APTT 36.6 H (22.0-30.0) sec Sodium (137-145) mmol/L Potassium (3.5-5.1) mmol/L Chloride (98-107) mmol/L Glucose (74-99) mg/dL Calcium (8.4-10.2) mg/dL Magnesium (1.6-2.3) mg/dL Troponin I (0.000-0.034) ng/mL Total Protein (6.3-8.2) g/dL Albumin (3.5-5.0) g/dL Ur Leukocyte Esterase Small H (Negative) 11/09/21 11/09/21 Range/Units 11:07 11:07 WBC (3.8-10.6) k/uL RBC (3.80-5.40) m/uL MCV (80.0-100.0) fL MCH (25.0-35.0) pg Neutrophils # (1.3-7.7) k/uL Macrocytosis PT (9.0-12.0) sec INR (<1.2) APTT (22.0-30.0) sec Sodium 131 L (137-145) mmol/L Potassium 3.1 L (3.5-5.1) mmol/L Chloride 95 L (98-107) mmol/L Glucose 126 H (74-99) mg/dL Calcium 8.1 L (8.4-10.2) mg/dL Magnesium 1.2 L (1.6-2.3) mg/dL Troponin I 0.071 H* (0.000-0.034) ng/mL Total Protein 6.2 L (6.3-8.2) g/dL Albumin 3.4 L (3.5-5.0) g/dL Ur Leukocyte Esterase (Negative)
--- NOTE | 2021-11-10 16:55 | P.PN ---
Progress Note - Text Progress Note Date: 11/10/21 Chief Complaint: Fall This is a pleasant 76-year-old patient who follows with Dr. Cohn. Chronic stable medical conditions include GERD, hyperlipidemia, hypertension, osteoarthritis, some memory loss from prior strokes, brain aneurysm, atrial fibrillation. Patient lives with her Dr. Stallings. I saw the patient and the ER with her other daughter. Patient say she has been recently getting a bit more short of breath. Also some chest pressure. Some dizziness. She went to the bathroom and then she fell down. Weak and tired. Also had some palpitation. In the ER atrial fibrillation with heart rate uncontrolled at 128. Also has a congested cough. Smoker. Tired rundown. Admitted with Pneumonia, atrial fibrillation uncontrolled, acute non-Q wave CO, COPD exacerbation. November 10: Atrial fibrillation a bit better controlled. Tired. Short of breath. Decreased appetite. IV ceftriaxone. DuoNeb. Steroids. Prednisone. Seen by orthopedics. Conservative management. Active Medications Acetaminophen (Acetaminophen Tab 500 Mg Tab) 1,000 mg PO BID [facility] Last Admin: 11/10/21 09:14 Dose: 1,000 mg Documented by: Albuterol Sulfate (Albuterol Nebulized 2.5 Mg/3 Ml) 2.5 mg INHALATION RT-QID PRN PRN Reason: Shortness Of Breath Albuterol/Ipratropium (Ipratropium-Albuterol 3 Ml Neb) 3 ml INHALATION QID LEELEE Alprazolam (Alprazolam 0.5 Mg Tab) 0.5 mg PO HS PRN PRN Reason: Insomnia Last Admin: 11/09/21 21:42 Dose: 0.5 mg Documented by: Atorvastatin Calcium (Atorvastatin 40 Mg Tab) 40 mg PO HS [facility] Last Admin: 11/09/21 23:46 Dose: 40 mg Documented by: Azithromycin (Azithromycin 500 Mg Tab) 500 mg PO DAILY@1500 LEELEE; Protocol Stop: 11/11/21 15:01 Last Admin: 11/10/21 14:27 Dose: 500 mg Documented by: Budesonide (Budesonide 1 Mg/2 Ml Nebu) 1 mg INHALATION RT-BID LEELEE Diltiazem HCl (Diltiazem Oral 30 Mg Tab) 30 mg PO TID [facility] Ceftriaxone Sodium 1 gm/ (Sodium Chloride) 50 mls @ 100 mls/hr IVPB Q12HR [facility]; Protocol Isosorbide Mononitrate (Isosorbide Mononitrate Er 30 Mg Tab.Er.24h) 30 mg PO DAILY [facility] Last Admin: 11/10/21 09:15 Dose: 30 mg Documented by: Lorazepam (Lorazepam 0.5 Mg Tab) 0.5 mg PO BID PRN PRN Reason: Anxiety Losartan Potassium (Losartan 50 Mg Tab) 50 mg PO DAILY [facility] Last Admin: 11/10/21 09:15 Dose: 50 mg Documented by: Metoprolol Tartrate (Metoprolol Tartrate 50 Mg Tab) 100 mg PO BID [facility] Last Admin: 11/10/21 09:15 Dose: 100 mg Documented by: Miscellaneous Information (Pneumonia Protocol Utilized 1 Each Misc) 1 each PO ONCE PRN PRN Reason: Per Protocol Miscellaneous Information (Warfarin Per Pharmacy) 1 each MISCELLANE DIRECTED PRN PRN Reason: Per Protocol Nicotine (Nicotine 21mg/24hr Patch) 1 patch TRANSDERM DAILY [facility] Prednisone (Prednisone 20 Mg Tab) 40 mg PO DAILY [facility] Warfarin Sodium (Warfarin 0.5 Mg Tab) 0 mg PO ONCE@1800 ONE Stop: 11/10/21 18:01 Last Admin: 11/10/21 15:18 Dose: Not Given Documented by: Past medical history to include: Atrial fibrillation, COPD, GERD, hypertension, hyperlipidemia, osteoarthritis, stroke 3 with some memory issues, brain aneurysm with a quiet, anxiety Social history: Smokes a pack a day. Lives with her Haylie. Alcohol occasionally. Family history: Reviewed, noncontributory to presentation Physical examination: VITAL SIGNS: 98, 84, 18, 93/64, 97% on 2 L GENERAL: Sitting up tired short of breath EYES: Pupils equal. Conjunctiva normal. HEENT: External appearance of nose and ears normal, oral cavity grossly normal. NECK: JVD not raised; masses not palpable. HEART: Heart sounds irregular; no edema. LUNGS: Respiratory rate increased; decreased breath sounds, wheezing. ABDOMEN: Soft, nontender, liver spleen not palpable, no masses palpable. PSYCH: Alert and oriented x3; mood and affect normal. MUSCULOSKELETAL:No Clubbing/cyanosis;muscles-grossly intact. OA NEUROLOGICAL: Cranial nerves grossly intact; no facial asymmetry, power and sensation grossly intact. INVESTIGATIONS, reviewed in the clinical context: November 10: White count 9.3 hemoglobin 13.6 INR 4.5 potassium 3.1 creatinine 0.68 White count 7.3 hemoglobin 13.4 INR 3 sodium 131 potassium 3.1 creatinine 0.7 to Troponin I 0.071, less than 0.012 UA: Leukoesterase small COVID 19 PCR: Not detected EKG tracing personally reviewed by me-atrial flutter fibrillation rate 128 Chest x-ray film personally reviewed by me-left basilar infiltrate Assessment and plan: -Persistent atrial fibrillation with rapid ventricular rate Cardizem 30 mg by mouth 3 times a day Lopressor 100 mg twice a day. Cardiology consulted. Coumadin -Basilar pneumonia suspected gram-negative organism: Slow to respond IV ceftriaxone Zithromax -Acute COPD exacerbation in a current smoker: Slow to respond DuoNeb 4 times a day, nebulized Pulmicort, -Chronic nicotine dependence, cigarette smoker Nicotine patch -Possible acute non-Q wave CO, also could be type II from hemodynamic mismatch 2-D echo. Follow with cardiology. Aspirin -GERD Pepcid as needed -Essential hypertension Lopressor 100 mg twice a day. 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 DuoNeb. Nebulized Pulmicort. Oral prednisone.. Discussed with patient
[2021-11-10] MEDS: ASPIRIN 81 MG PO SCH (17:31)
[2021-11-10] MEDS: NICOTINE 21MG/24HR PATCH TRANSDERM SCH (17:32)
[2021-11-10] MEDS: predniSONE 20 MG TAB PO SCH (17:32)
[2021-11-10] MEDS ORDERED: WARFARIN 2.5 MG TAB PO SCH (18:00)
[2021-11-10] MEDS ORDERED: WARFARIN 0.5 MG TAB PO ONE (18:00)
[2021-11-10] MEDS: BUDESONIDE 1 MG/2 ML NEBU INHALATION SCH (19:54)
[2021-11-10] MEDS ORDERED: FORMOTEROL FUMARATE 20 MCG/2 ML NEBU INHALATION SCH (20:00)
[2021-11-10] MEDS: FAMOTIDINE 20 MG TAB PO SCH (21:03)
[2021-11-10] MEDS: ATORVASTATIN 40 MG TAB PO SCH (21:04)
[2021-11-11] MEDS: BUDESONIDE 1 MG/2 ML NEBU INHALATION SCH ×2 (07:25→19:59)
[2021-11-11] MEDS: IPRATROPIUM-ALBUTEROL 3 ML NEB INHALATION SCH ×4 (07:25→19:59)
[2021-11-11 07:36] LABS: INR 3.9 (<1.2); Prothrombin Time 38.4 sec (9.0-12.0)
[2021-11-11 07:45] LABS: Potassium 4.4 mmol/L (3.5-5.1)
[2021-11-11] MEDS: DILTIAZEM ORAL 30 MG TAB PO SCH ×4 (07:51→20:47)
[2021-11-11] MEDS: ACETAMINOPHEN TAB 500 MG TAB PO SCH ×2 (07:51→20:47)
[2021-11-11] MEDS: predniSONE 20 MG TAB PO SCH (07:51)
[2021-11-11] MEDS: LOSARTAN 50 MG TAB PO SCH (07:52)
[2021-11-11] MEDS: ISOSORBIDE MONONITRATE ER 30 MG TAB.ER.24H PO SCH (07:52)
[2021-11-11] MEDS: NICOTINE 21MG/24HR PATCH TRANSDERM SCH (07:52)
[2021-11-11] MEDS: FAMOTIDINE 20 MG TAB PO SCH ×2 (07:52→20:46)
[2021-11-11] MEDS: METOPROLOL TARTRATE 50 MG TAB PO SCH ×2 (07:52→20:46)
[2021-11-11] MEDS: ASPIRIN 81 MG PO SCH (07:52)
[2021-11-11] MEDS ORDERED: DIGOXIN 250 MCG/ML 2 ML AMP IVP STA (08:35)
--- NOTE | 2021-11-11 08:35 | P.PN ---
Subjective HISTORY OF PRESENTING ILLNESS Patient is a pleasant 76-year-old female with a history of persistent atrial fibrillation, hyperlipidemia, hypertension, COPD, tobacco abuse, nonobstructive coronary artery disease and recent fall who presents after a fall. She follows in the office with Dr. Manzanares. She has been having uncontrolled atrial fibrillation and was recently seen in the office and Cardizem was added as well as Lasix was increased from 20 twice a day to 40 twice a day given increased lower extremity edema. Her edema did improve and she had been feeling fairly well however daughter states that the night before she felt she was somewhat confused. Patient does not recall this however got up in the middle the night going to the bathroom and apparently had a fall, does not appear syncope and no headedness or loss of consciousness. She believes she was somewhat unstable on her feet. Unclear if she tripped on something. She was unable to get up off the floor for a number of hours and [facility] Patient was found to be in A. fib with RVR with heart rates in the 120s to 140s. Showed stable left basilar opacity consistent with infiltrate and/or atelectasis as well as new right basilar infiltrate. She admits to a "head cold". She has had a mild cough recently however no fevers or chills. Currently deines any chest pain or pressure or tightness. Initial white blood cell count 17.3, improved to 9.3, hemoglobin 13.4, 131, potassium 3.1, troponin 0.071, albumin 3.4 11/11 Patient seen and examined. Patient denies any chest pain or pressure. She does still feel fatigue, may be related to the pneumonia. Her heart rates have been elevated this morning, may be related to the metoprolol wearing off and the Cardizem. PHYSICAL EXAMINATION Vital signs reviewed. CONSTITUTIONAL: No apparent distress. HEENT: Head is normocephalic. Pupils are equal, round. Sclerae anicteric. Mucous membranes of the mouth are moist. No JVD. No carotid bruit. CHEST EXAMINATION: Lungs are clear to auscultation. No chest wall tenderness is noted on palpation or with deep breathing. HEART EXAMINATION: Regular rate and rhythm. S1, S2 heard. No murmurs, gallops or rub. ABDOMEN: Soft, nontender. Positive bowel sounds. EXTREMITIES: 2+ peripheral pulses, no lower extremity edema and no calf tenderness. NEUROLOGIC EXAMINATION: Patient is awake, alert and oriented x3. ASSESSMENT 1. Fall with unclear details, appears may be a mechanical fall and no loss of consciousness 2. New right infiltrate, leukocytosis and cough concerning for pneumonia 3. A. fib with RVR, has been mildly elevated as an outpatient as well 4. Mild CAD by prior heart catheterization 5. Non-STEMI, likely type II mechanism related to fall, being down on the floor or pneumonia. Currently no significant angina-type symptoms 6. Tobacco abuse 7. Electrolyte abnormalities 8. Prior mild cardiomyopathy PLAN We will check a repeat 2-D echo to evaluate for left ventricular function. Heart rates still remain elevated this morning in the 110s to 140s. We will add digoxin and monitor response. Continue treatment for possible pneumonia. Continue to monitor on telemetry. This has been patient's first fall and unclear if cardiogenic in nature versus mechanical fall. Further recommendations to follow. Objective - Vital Signs Vital signs: Vital Signs Temp 97.4 F L 11/11/21 04:45 Pulse 110 H 11/11/21 07:42 Resp 20 11/11/21 04:45 BP 123/80 11/11/21 04:45 Pulse Ox 99 11/11/21 04:45 Intake & Output 11/10/21 11/11/21 11/11/21 18:59 06:59 18:59 Intake Total 358 Balance 358 Intake: Oral 358 Other: Voiding Method Toilet Toilet # Voids 4 1 - Labs CBC & Chem 7: 11/10/21 07:31 11/11/21 07:04 Labs: Abnormal Lab Results - Last 24 Hours (Table) 11/11/21 11/11/21 Range/Units 07:04 07:04 PT 38.4 H (9.0-12.0) sec INR 3.9 H (<1.2) Sodium 135 L (137-145) mmol/L Microbiology - Last 24 Hours (Table) 11/09/21 13:39 Blood Culture - Preliminary Blood No Growth after 24 hours 11/09/21 13:09 Blood Culture - Preliminary Blood No Growth after 24 hours
[2021-11-11] MEDS: DIGOXIN 250 MCG/ML 2 ML AMP IVP SCH ×2 (14:30→20:46)
[2021-11-11] MEDS: AZITHROMYCIN 500 MG TAB PO SCH (14:30)
--- NOTE | 2021-11-11 17:24 | P.PN ---
Progress Note - Text Progress Note Date: 11/11/21 Chief Complaint: Fall This is a pleasant 76-year-old patient who follows with Dr. Cohn. Chronic stable medical conditions include GERD, hyperlipidemia, hypertension, osteoarthritis, some memory loss from prior strokes, brain aneurysm, atrial fibrillation. Patient lives with her Dr. Stallings. I saw the patient and the ER with her other daughter. Patient say she has been recently getting a bit more short of breath. Also some chest pressure. Some dizziness. She went to the bathroom and then she fell down. Weak and tired. Also had some palpitation. In the ER atrial fibrillation with heart rate uncontrolled at 128. Also has a congested cough. Smoker. Tired rundown. Admitted with Pneumonia, atrial fibrillation uncontrolled, acute non-Q wave CO, COPD exacerbation. November 10: Atrial fibrillation a bit better controlled. Tired. Short of breath. Decreased appetite. IV ceftriaxone. DuoNeb. Steroids. Prednisone. Seen by orthopedics. Conservative management. November 11: Remains in atrial fibrillation. Some shortness of breath.IV ceftriaxone. DuoNeb. Steroids. Prednisone. Decreased appetite. Eating about 25%. Cough. Increase Cardizem to 30 mg 4 times a day. Digoxin added by cardiology. Active Medications Acetaminophen (Acetaminophen Tab 500 Mg Tab) 1,000 mg PO BID [facility] Last Admin: 11/11/21 07:51 Dose: 1,000 mg Documented by: Albuterol Sulfate (Albuterol Nebulized 2.5 Mg/3 Ml) 2.5 mg INHALATION RT-QID PRN PRN Reason: Shortness Of Breath Albuterol/Ipratropium (Ipratropium-Albuterol 3 Ml Neb) 3 ml INHALATION RT-QID [facility] Last Admin: 11/11/21 16:35 Dose: 3 ml Documented by: Alprazolam (Alprazolam 0.5 Mg Tab) 0.5 mg PO HS PRN PRN Reason: Insomnia Last Admin: 11/09/21 21:42 Dose: 0.5 mg Documented by: Aspirin (Aspirin 81 Mg) 81 mg PO DAILY [facility] Last Admin: 11/11/21 07:52 Dose: 81 mg Documented by: Atorvastatin Calcium (Atorvastatin 40 Mg Tab) 40 mg PO HS [facility] Last Admin: 11/10/21 21:04 Dose: 40 mg Documented by: Budesonide (Budesonide 1 Mg/2 Ml Nebu) 1 mg INHALATION RT-BID [facility] Last Admin: 11/11/21 07:25 Dose: 1 mg Documented by: Digoxin (Digoxin 250 Mcg/Ml 2 Ml Amp) 250 mcg IVP Q6H [facility] Stop: 11/11/21 20:01 Last Admin: 11/11/21 14:30 Dose: 250 mcg Documented by: Digoxin (Digoxin 125 Mcg Tab) 125 mcg PO DAILY [facility] Diltiazem HCl (Diltiazem Oral 30 Mg Tab) 30 mg PO QID [facility] Last Admin: 11/11/21 16:54 Dose: 30 mg Documented by: Famotidine (Famotidine 20 Mg Tab) 20 mg PO BID [facility] Last Admin: 11/11/21 07:52 Dose: 20 mg Documented by: Ceftriaxone Sodium 1 gm/ (Sodium Chloride) 50 mls @ 100 mls/hr IVPB Q12HR [facility]; Protocol Last Admin: 11/11/21 07:52 Dose: 100 mls/hr Documented by: Isosorbide Mononitrate (Isosorbide Mononitrate Er 30 Mg Tab.Er.24h) 30 mg PO DAILY [facility] Last Admin: 11/11/21 07:52 Dose: 30 mg Documented by: Lorazepam (Lorazepam 0.5 Mg Tab) 0.5 mg PO BID PRN PRN Reason: Anxiety Losartan Potassium (Losartan 50 Mg Tab) 50 mg PO DAILY [facility] Last Admin: 11/11/21 07:52 Dose: 50 mg Documented by: Metoprolol Tartrate (Metoprolol Tartrate 50 Mg Tab) 100 mg PO BID [facility] Last Admin: 11/11/21 07:52 Dose: 100 mg Documented by: Miscellaneous Information (Pneumonia Protocol Utilized 1 Each Misc) 1 each PO ONCE PRN PRN Reason: Per Protocol Miscellaneous Information (Warfarin Per Pharmacy) 1 each MISCELLANE DIRECTED PRN PRN Reason: Per Protocol Nicotine (Nicotine 21mg/24hr Patch) 1 patch TRANSDERM DAILY [facility] Last Admin: 11/11/21 07:52 Dose: 1 patch Documented by: Prednisone (Prednisone 20 Mg Tab) 40 mg PO DAILY [facility] Last Admin: 11/11/21 07:51 Dose: 40 mg Documented by: Warfarin Sodium (Warfarin 0.5 Mg Tab) 0 mg PO ONCE@1800 ONE Stop: 11/11/21 18:01 Last Admin: 11/11/21 16:46 Dose: Not Given Documented by: Past medical history to include: Atrial fibrillation, COPD, GERD, hypertension, hyperlipidemia, osteoarthritis, stroke 3 with some memory issues, brain aneurysm with a quiet, anxiety Social history: Smokes a pack a day. Lives with her Dr. Stallings. Alcohol occasionally. Family history: Reviewed, noncontributory to presentation Physical examination: VITAL SIGNS: 97, 114, 20, 1:30/76, 98% on liters GENERAL: Propped up tired short of breath EYES: Pupils equal. Conjunctiva normal. HEENT: External appearance of nose and ears normal, oral cavity grossly normal. NECK: JVD not raised; masses not palpable. HEART: Heart sounds irregular; no edema. LUNGS: Respiratory rate increased; decreased breath sounds, wheezing. ABDOMEN: Soft, nontender, liver spleen not palpable, no masses palpable. PSYCH: Alert and oriented x3; mood and affect normal. MUSCULOSKELETAL:No Clubbing/cyanosis;muscles-grossly intact. OA NEUROLOGICAL: Cranial nerves grossly intact; no facial asymmetry, power and sensation grossly intact. INVESTIGATIONS, reviewed in the clinical context: November 11: INR 3.9 potassium 4.4 November 10: White count 9.3 hemoglobin 13.6 INR 4.5 potassium 3.1 creatinine 0.68 White count 7.3 hemoglobin 13.4 INR 3 sodium 131 potassium 3.1 creatinine 0.7 to Troponin I 0.071, less than 0.012 UA: Leukoesterase small COVID 19 PCR: Not detected EKG tracing personally reviewed by me-atrial flutter fibrillation rate 128 Chest x-ray film personally reviewed by me-left basilar infiltrate Assessment and plan: -Persistent atrial fibrillation with rapid ventricular rate: Rate uncontrolled Increase Cardizem 30 mg by mouth 4 times a day Lopressor 100 mg twice a day. Cardiology consulted. Coumadin. Digoxin added -Basilar pneumonia suspected gram-negative organism: Slow to respond IV ceftriaxone Zithromax -Acute COPD exacerbation in a current smoker: Slow to respond DuoNeb 4 times a day, nebulized Pulmicort, -Chronic nicotine dependence, cigarette smoker Nicotine patch -Possible acute non-Q wave CO, also could be type II from hemodynamic mismatch 2-D echo. Follow with cardiology. Aspirin -GERD Pepcid as needed -Essential hypertension Lopressor 100 mg twice a day. 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 Lopressor IV ceftriaxone. DuoNeb. Nebulized Pulmicort. Oral prednisone.. Digoxin added. Up in a chair.
[2021-11-11] MEDS ORDERED: WARFARIN 1.25 MG TAB PO SCH (18:00)
[2021-11-11] MEDS ORDERED: WARFARIN 0.5 MG TAB PO ONE (18:00)
[2021-11-11] MEDS: ATORVASTATIN 40 MG TAB PO SCH (20:46)
[2021-11-12 07:29] LABS: INR 2.8 (<1.2)
[2021-11-12 07:36] LABS: African American GFR (CKD) >90 (>60 ml/min/1.73 sqM); Anion Gap 4 mmol/L; Blood Urea Nitrogen 15 mg/dL (7-17); Calcium 8.2 mg/dL (8.4-10.2); Carbon Dioxide 27 mmol/L (22-30); Chloride 105 mmol/L (98-107); Glucose 115 mg/dL (74-99); Non-African American GFR(CKD) 83 (>60 ml/min/1.73 sqM); Potassium 4.5 mmol/L (3.5-5.1); Sodium 136 mmol/L (137-145)
[2021-11-12] MEDS: LOSARTAN 50 MG TAB PO SCH (08:28)
[2021-11-12] MEDS: METOPROLOL TARTRATE 50 MG TAB PO SCH ×2 (08:28→20:50)
[2021-11-12] MEDS: DILTIAZEM ORAL 30 MG TAB PO SCH ×2 (08:28→12:00)
[2021-11-12] MEDS: ACETAMINOPHEN TAB 500 MG TAB PO SCH ×2 (08:28→20:50)
[2021-11-12] MEDS: NICOTINE 21MG/24HR PATCH TRANSDERM SCH (08:28)
[2021-11-12] MEDS: FAMOTIDINE 20 MG TAB PO SCH ×2 (08:28→20:50)
[2021-11-12] MEDS: ASPIRIN 81 MG PO SCH (08:29)
[2021-11-12] MEDS: predniSONE 20 MG TAB PO SCH (08:29)
[2021-11-12] MEDS: ISOSORBIDE MONONITRATE ER 30 MG TAB.ER.24H PO SCH (08:29)
[2021-11-12] MEDS ORDERED: DIGOXIN 125 MCG TAB PO SCH (09:00)
[2021-11-12] MEDS: BUDESONIDE 1 MG/2 ML NEBU INHALATION SCH ×2 (09:23→22:03)
[2021-11-12] MEDS: IPRATROPIUM-ALBUTEROL 3 ML NEB INHALATION SCH ×4 (09:23→22:02)
--- NOTE | 2021-11-12 14:12 | P.PN ---
Progress Note - Text Progress Note Date: 11/12/21 Chief Complaint: Fall This is a pleasant 76-year-old patient who follows with Dr. Cohn. Chronic stable medical conditions include GERD, hyperlipidemia, hypertension, osteoarthritis, some memory loss from prior strokes, brain aneurysm, atrial fibrillation. Patient lives with her Dr. Stallings. I saw the patient and the ER with her other daughter. Patient say she has been recently getting a bit more short of breath. Also some chest pressure. Some dizziness. She went to the bathroom and then she fell down. Weak and tired. Also had some palpitation. In the ER atrial fibrillation with heart rate uncontrolled at 128. Also has a congested cough. Smoker. Tired rundown. Admitted with Pneumonia, atrial fibrillation uncontrolled, acute non-Q wave OK, COPD exacerbation. November 10: Atrial fibrillation a bit better controlled. Tired. Short of breath. Decreased appetite. IV ceftriaxone. DuoNeb. Steroids. Prednisone. Seen by orthopedics. Conservative management. November 11: Remains in atrial fibrillation. Some shortness of breath.IV ceftriaxone. DuoNeb. Steroids. Prednisone. Decreased appetite. Eating about 25%. Cough. Increase Cardizem to 30 mg 4 times a day. Digoxin added by cardiology. November 12: In atrial fibrillation but rate better controlled. Breathing better. Diet. Oral intake fair. Has been out of bed. Minimal cough. Active Medications Acetaminophen (Acetaminophen Tab 500 Mg Tab) 1,000 mg PO BID [facility] Last Admin: 11/12/21 08:28 Dose: 1,000 mg Documented by: Albuterol Sulfate (Albuterol Nebulized 2.5 Mg/3 Ml) 2.5 mg INHALATION RT-QID PRN PRN Reason: Shortness Of Breath Albuterol/Ipratropium (Ipratropium-Albuterol 3 Ml Neb) 3 ml INHALATION RT-QID [facility] Last Admin: 11/12/21 12:29 Dose: 3 ml Documented by: Alprazolam (Alprazolam 0.5 Mg Tab) 0.5 mg PO HS PRN PRN Reason: Insomnia Last Admin: 11/09/21 21:42 Dose: 0.5 mg Documented by: Atorvastatin Calcium (Atorvastatin 40 Mg Tab) 40 mg PO HS [facility] Last Admin: 11/11/21 20:46 Dose: 40 mg Documented by: Budesonide (Budesonide 1 Mg/2 Ml Nebu) 1 mg INHALATION RT-BID [facility] Last Admin: 11/12/21 09:23 Dose: 1 mg Documented by: Diltiazem HCl (Diltiazem Oral 60 Mg Tab) 60 mg PO TID [facility] Famotidine (Famotidine 20 Mg Tab) 20 mg PO BID [facility] Last Admin: 11/12/21 08:28 Dose: 20 mg Documented by: Ceftriaxone Sodium 1 gm/ (Sodium Chloride) 50 mls @ 100 mls/hr IVPB Q12HR [facility]; Protocol Last Admin: 11/12/21 08:28 Dose: 100 mls/hr Documented by: Isosorbide Mononitrate (Isosorbide Mononitrate Er 30 Mg Tab.Er.24h) 30 mg PO DAILY [facility] Last Admin: 11/12/21 08:29 Dose: 30 mg Documented by: Lorazepam (Lorazepam 0.5 Mg Tab) 0.5 mg PO BID PRN PRN Reason: Anxiety Losartan Potassium (Losartan 50 Mg Tab) 50 mg PO DAILY [facility] Last Admin: 11/12/21 08:28 Dose: 50 mg Documented by: Metoprolol Tartrate (Metoprolol Tartrate 50 Mg Tab) 100 mg PO BID [facility] Last Admin: 11/12/21 08:28 Dose: 100 mg Documented by: Miscellaneous Information (Pneumonia Protocol Utilized 1 Each Misc) 1 each PO ONCE PRN PRN Reason: Per Protocol Miscellaneous Information (Warfarin Per Pharmacy) 1 each MISCELLANE DIRECTED PRN PRN Reason: Per Protocol Nicotine (Nicotine 21mg/24hr Patch) 1 patch TRANSDERM DAILY [facility] Last Admin: 11/12/21 08:28 Dose: 1 patch Documented by: Prednisone (Prednisone 20 Mg Tab) 40 mg PO DAILY [facility] Last Admin: 11/12/21 08:29 Dose: 40 mg Documented by: Warfarin Sodium (Warfarin 0.5 Mg Tab) 0.5 mg PO ONCE@1800 ONE; Protocol Stop: 11/12/21 18:01 Past medical history to include: Atrial fibrillation, COPD, GERD, hypertension, hyperlipidemia, osteoarthritis, stroke 3 with some memory issues, brain aneurysm with a quiet, anxiety Social history: Smokes a pack a day. Lives with her Dr. Stallings. Alcohol occasionally. Family history: Reviewed, noncontributory to presentation Physical examination: VITAL SIGNS: 98.1, 76, 18, 129/69, 98% on 2 L GENERAL: Propped up in bed, looking better EYES: Pupils equal. Conjunctiva normal. HEENT: External appearance of nose and ears normal, oral cavity grossly normal. NECK: JVD not raised; masses not palpable. HEART: Heart sounds irregular; no edema. LUNGS: Respiratory rate normal; decreased breath sounds, ABDOMEN: Soft, nontender, liver spleen not palpable, no masses palpable. PSYCH: Alert and oriented x3; mood and affect normal. MUSCULOSKELETAL:No Clubbing/cyanosis;muscles-grossly intact. OA NEUROLOGICAL: Cranial nerves grossly intact; no facial asymmetry, power and sensation grossly intact. INVESTIGATIONS, reviewed in the clinical context: November 12: INR 2.8 potassium 4.5 creatinine 0.71 November 11: INR 3.9 potassium 4.4 November 10: White count 9.3 hemoglobin 13.6 INR 4.5 potassium 3.1 creatinine 0.68 White count 7.3 hemoglobin 13.4 INR 3 sodium 131 potassium 3.1 creatinine 0.7 to Troponin I 0.071, less than 0.012 UA: Leukoesterase small COVID 19 PCR: Not detected EKG tracing personally reviewed by me-atrial flutter fibrillation rate 128 Chest x-ray film personally reviewed by me-left basilar infiltrate Assessment and plan: -Persistent atrial fibrillation with rapid ventricular rate: Ratecontrolled Cardizem 30 mg by mouth 4 times a day Lopressor 100 mg twice a day. Cardiology consulted. Coumadin. -Basilar pneumonia suspected gram-negative organism: Better IV ceftriaxone Zithromax -Acute COPD exacerbation in a current smoker: Improving DuoNeb 4 times a day, nebulized Pulmicort, prednisone -Chronic nicotine dependence, cigarette smoker Nicotine patch -Possible acute non-Q wave OK, also could be type II from hemodynamic mismatch Follow with cardiology. Aspirin -GERD Pepcid as needed -Essential hypertension Lopressor 100 mg twice a day. 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 Other medications to continue. Discussed with patient. Hopefully home tomorrow if continues to improve.
--- NOTE | 2021-11-12 14:16 | P.PN ---
Subjective Progress Note Date: 11/12/21 HISTORY OF PRESENT ILLNESS: Patient is a pleasant 76-year-old female with a history of persistent atrial fibrillation, hyperlipidemia, hypertension, COPD, tobacco abuse, nonobstructive coronary artery disease and recent fall who presents after a fall. She follows in the office with Dr. Manzanares. She has been having uncontrolled atrial fibrillation and was recently seen in the office and Cardizem was added as well as Lasix was increased from 20 twice a day to 40 twice a day given increased lower extremity edema. Her edema did improve and she had been feeling fairly well however daughter states that the night before she felt she was somewhat confused. Patient does not recall this however got up in the middle the night going to the bathroom and apparently had a fall, does not appear syncope and no headedness or loss of consciousness. She believes she was somewhat unstable on her feet. Unclear if she tripped on something. She was unable to get up off the floor for a number of hours and eventually EMS was called and brought to emergency department. Patient was found to be in A. fib with RVR with heart rates in the 120s to 140s. Showed stable left basilar opacity consistent with infiltrate and/or atelectasis as well as new right basilar infiltrate. She admits to a "head cold". She has had a mild cough recently however no fevers or chills. Currently deines any chest pain or pressure or tightness. Initial white blood cell count 17.3, improved to 9.3, hemoglobin 13.4, 131, potassium 3.1, troponin 0.071, albumin 3.4 11/11 Patient seen and examined. Patient denies any chest pain or pressure. She does still feel fatigue, may be related to the pneumonia. Her heart rates have been elevated this morning, may be related to the metoprolol wearing off and the Cardizem. 11/12/2021 Patient examined this morning at the bedside. Patient denies chest pain or pressure. Denies SOB. Telemetry reveals atrial fibrillation with controlled v entricular rates. Vital signs are stable. PHYSICAL EXAM: VITAL SIGNS: Reviewed. GENERAL: Well-developed in no acute distress. NECK: Supple. No JVD or thyromegaly LUNGS: Respirations even and unlabored. Lungs diminished to auscultation bilaterally. HEART: Irregular rate and rhythm. S1 and S2 heard. EXTREMITIES: Normal range of motion. No clubbing or cyanosis. Peripheral pulses intact. No lower extremity edema ASSESSMENT: 1. Fall with unclear details, appears may be a mechanical fall and no loss of consciousness 2. New right infiltrate, leukocytosis and cough concerning for pneumonia 3. A. fib with RVR, has been mildly elevated as an outpatient as well 4. Mild CAD by prior heart catheterization 5. Non-STEMI, likely type II mechanism related to fall, being down on the floor or pneumonia. Currently no significant angina-type symptoms 6. Tobacco abuse 7. Electrolyte abnormalities 8. Prior mild cardiomyopathy PLAN: Continue current cardiac medications Continue telemetry monitoring Discontinue Digoxin Increase Cardizem to 60mg TID Further recommendations pending patient course Nurse practitioner note has been reviewed by physician. Signing provider agrees with the documented findings, assessment, and plan of care. Objective - Vital Signs Vital signs: Vital Signs Temp 98.1 F 11/12/21 08:00 Pulse 96 11/12/21 12:41 Resp 18 11/12/21 08:00 BP 143/91 11/12/21 08:00 Pulse Ox 96 11/12/21 09:25 Intake & Output 11/11/21 11/12/21 11/12/21 18:59 06:59 18:59 Intake Total 870 120 Balance 870 120 Intake: Oral 870 120 Other: Voiding Method Toilet Toilet # Voids 2 1 1 # Bowel Movements 1 1 1 - Labs CBC & Chem 7: 11/10/21 07:31 11/12/21 05:51 Labs: Abnormal Lab Results - Last 24 Hours (Table) 11/12/21 11/12/21 Range/Units 05:51 05:51 PT 28.0 H (9.0-12.0) sec INR 2.8 H (<1.2) Sodium 136 L (137-145) mmol/L Glucose 115 H (74-99) mg/dL Calcium 8.2 L (8.4-10.2) mg/dL Microbiology - Last 24 Hours (Table) 11/09/21 13:09 Blood Culture - Preliminary Blood No Growth after 48 hours 11/09/21 13:39 Blood Culture - Preliminary Blood No Growth after 48 hours
[2021-11-12] MEDS: DILTIAZEM ORAL 60 MG TAB PO SCH ×2 (16:43→20:50)
[2021-11-12] MEDS ORDERED: WARFARIN 0.5 MG TAB PO ONE (18:00)
[2021-11-12] MEDS: ATORVASTATIN 40 MG TAB PO SCH (20:50)
[2021-11-12] MEDS: ALPRAZolam 0.5 MG TAB PO PRN (20:56)
[2021-11-13] MEDS: BUDESONIDE 1 MG/2 ML NEBU INHALATION SCH (07:48)
[2021-11-13] MEDS: IPRATROPIUM-ALBUTEROL 3 ML NEB INHALATION SCH ×2 (07:48→11:35)
[2021-11-13 08:09] LABS: INR 2.6 (<1.2)
[2021-11-13] MEDS: predniSONE 20 MG TAB PO SCH (08:44)
[2021-11-13] MEDS: ACETAMINOPHEN TAB 500 MG TAB PO SCH (08:44)
[2021-11-13] MEDS: ISOSORBIDE MONONITRATE ER 30 MG TAB.ER.24H PO SCH (08:44)
[2021-11-13] MEDS: NICOTINE 21MG/24HR PATCH TRANSDERM SCH (08:44)
[2021-11-13] MEDS: LOSARTAN 50 MG TAB PO SCH (08:44)
[2021-11-13] MEDS: DILTIAZEM ORAL 60 MG TAB PO SCH (08:44)
[2021-11-13] MEDS: FAMOTIDINE 20 MG TAB PO SCH (08:44)
[2021-11-13] MEDS: METOPROLOL TARTRATE 50 MG TAB PO SCH (08:44)
--- NOTE | 2021-11-13 10:20 | P.PN ---
Subjective Progress Note Date: 11/13/21 HISTORY OF PRESENT ILLNESS: Patient is a pleasant 76-year-old female with a history of persistent atrial fibrillation, hyperlipidemia, hypertension, COPD, tobacco abuse, nonobstructive coronary artery disease and recent fall who presents after a fall. She follows in the office with Dr. Manzanares. She has been having uncontrolled atrial fibrillation and was recently seen in the office and Cardizem was added as well as Lasix was increased from 20 twice a day to 40 twice a day given increased lower extremity edema. Her edema did improve and she had been feeling fairly well however daughter states that the night before she felt she was somewhat confused. Patient does not recall this however got up in the middle the night going to the bathroom and apparently had a fall, does not appear syncope and no headedness or loss of consciousness. She believes she was somewhat unstable on her feet. Unclear if she tripped on something. She was unable to get up off the floor for a number of hours and eventually EMS was called and brought to emergency department. Patient was found to be in A. fib with RVR with heart rates in the 120s to 140s. Showed stable left basilar opacity consistent with infiltrate and/or atelectasis as well as new right basilar infiltrate. She admits to a "head cold". She has had a mild cough recently however no fevers or chills. Currently deines any chest pain or pressure or tightness. Initial white blood cell count 17.3, improved to 9.3, hemoglobin 13.4, 131, potassium 3.1, troponin 0.071, albumin 3.4 11/11 Patient seen and examined. Patient denies any chest pain or pressure. She does still feel fatigue, may be related to the pneumonia. Her heart rates have been elevated this morning, may be related to the metoprolol wearing off and the Cardizem. 11/12/2021 Patient examined this morning at the bedside. Patient denies chest pain or pressure. Denies SOB. Telemetry reveals atrial fibrillation with controlled v entricular rates. Vital signs are stable. 11/13/2021 Patient examined this morning at the bedside. Patient denies chest pain or pressure. Denies SOB. Telemetry reveals atrial fibrillation with controlled ventricular rates. PHYSICAL EXAM: VITAL SIGNS: Reviewed. GENERAL: Well-developed in no acute distress. NECK: Supple. No JVD or thyromegaly LUNGS: Respirations even and unlabored. Lungs diminished to auscultation bilaterally. HEART: Irregular rate and rhythm. S1 and S2 heard. EXTREMITIES: Normal range of motion. No clubbing or cyanosis. Peripheral pulses intact. No lower extremity edema ASSESSMENT: 1. Fall with unclear details, appears may be a mechanical fall and no loss of consciousness 2. New right infiltrate, leukocytosis and cough concerning for pneumonia 3. A. fib with RVR, has been mildly elevated as an outpatient as well 4. Mild CAD by prior heart catheterization 5. Non-STEMI, likely type II mechanism related to fall, being down on the floor or pneumonia. Currently no significant angina-type symptoms 6. Tobacco abuse 7. Electrolyte abnormalities 8. Prior mild cardiomyopathy PLAN: Continue current cardiac medications Continue telemetry monitoring Patient is stable for discharge home today from a cardiac standpoint Patient to follow up with Dr. Manzanares Nurse practitioner note has been reviewed by physician. Signing provider agrees with the documented findings, assessment, and plan of care. Objective - Vital Signs Vital signs: Vital Signs Temp 97.5 F L 11/13/21 04:00 Pulse 82 11/13/21 08:05 Resp 18 11/13/21 04:00 BP 145/87 11/13/21 04:00 Pulse Ox 95 11/13/21 07:51 Intake & Output 11/12/21 11/13/21 11/13/21 18:59 06:59 18:59 Intake Total 360 120 Balance 360 120 Intake: Oral 360 120 Other: Voiding Method Toilet # Voids 3 1 # Bowel Movements 1 - Labs CBC & Chem 7: 11/10/21 07:31 11/12/21 05:51 Labs: Abnormal Lab Results - Last 24 Hours (Table) 11/13/21 Range/Units 05:30 PT 26.0 H (9.0-12.0) sec INR 2.6 H (<1.2) Microbiology - Last 24 Hours (Table) 11/09/21 13:39 Blood Culture - Preliminary Blood No Growth after 72 hours 11/09/21 13:09 Blood Culture - Preliminary Blood No Growth after 72 hours
[2021-11-13 11:58] VITALS: BP 126/74; PULSE 64; RESP 14; TEMP 97.5
--- NOTE | 2021-11-13 17:22 | P.DS ---
Providers Date of admission: 11/09/21 13:54 Expected date of discharge: 11/13/21 Attending physician: Rashad Tran Consults: 11/09/21 18:29 Consult Physician Routine Consulting Provider: Pascual Branch Consult Reason/Comments: pos troponin Do you want consulting provider notified?: Yes 11/09/21 18:52 Consult Physician Routine Consulting Provider: Ward Bonner Consult Reason/Comments: L arm pain/fall Do you want consulting provider notified?: Yes Primary care physician: [facility] Course: Chief Complaint: Fall This is a pleasant 76-year-old patient who follows with Dr. Cohn. Chronic stable medical conditions include GERD, hyperlipidemia, hypertension, osteoarthritis, some memory loss from prior strokes, brain aneurysm, atrial fibrillation. Patient lives with her Dr. Stallings. I saw the patient and the ER with her other daughter. Patient say she has been recently getting a bit more short of breath. Also some chest pressure. Some dizziness. She went to the bathroom and then she fell down. Weak and tired. Also had some palpitation. In the ER atrial fibrillation with heart rate uncontrolled at 128. Also has a congested cough. Smoker. Tired rundown. Admitted with Pneumonia, atrial fibrillation uncontrolled, acute non-Q wave CO, COPD exacerbation. November 10: Atrial fibrillation a bit better controlled. Tired. Short of breath. Decreased appetite. IV ceftriaxone. DuoNeb. Steroids. Prednisone. Seen by orthopedics. Conservative management. No fractures. Today: Breathing better. Heart rate better controlled. Consult about smoking again. Questions answered. Cleared by cardiology. Past medical history to include: Atrial fibrillation, COPD, GERD, hypertension, hyperlipidemia, osteoarthritis, stroke 3 with some memory issues, brain aneurysm with a quiet, anxiety Social history: Smokes a pack a day. Lives with her Dr. Stallings. Alcohol occasionally. Family history: Reviewed, noncontributory to presentation Physical examination: VITAL SIGNS: 97.5, 64, 14, 126/74, 99% 2 L GENERAL: Propped up in bed, looking better EYES: Pupils equal. Conjunctiva normal. HEENT: External appearance of nose and ears normal, oral cavity grossly normal. NECK: JVD not raised; masses not palpable. HEART: Heart sounds irregular; no edema. LUNGS: Respiratory rate normal; decreased breath sounds, ABDOMEN: Soft, nontender, liver spleen not palpable, no masses palpable. PSYCH: Alert and oriented x3; mood and affect normal. MUSCULOSKELETAL:No Clubbing/cyanosis;muscles-grossly intact. OA NEUROLOGICAL: Cranial nerves grossly intact; no facial asymmetry, power and sensation grossly intact. INVESTIGATIONS, reviewed in the clinical context: November 13: INR 2.6 White count 7.3 hemoglobin 13.4 INR 3 sodium 131 potassium 3.1 creatinine 0.7 to Troponin I 0.071, less than 0.012 UA: Leukoesterase small COVID 19 PCR: Not detected EKG tracing personally reviewed by me-atrial flutter fibrillation rate 128 Chest x-ray film personally reviewed by me-left basilar infiltrate Assessment and plan: -Persistent atrial fibrillation with rapid ventricular rate: Ratecontrolled Cardizem CD 180 mg a day Lopressor 100 mg twice a day. Coumadin. -Basilar pneumonia suspected gram-negative organism: Better IV ceftriaxone Zithromax. DC on Ceftin for 3 days -Acute COPD exacerbation in a current smoker: Improving DuoNeb 4 times a day, nebulized Pulmicort, prednisone-taper -Chronic nicotine dependence, cigarette smoker Nicotine patch -Possible acute non-Q wave CO, also could be type II from hemodynamic mismatch Follow with cardiology. Aspirin -GERD Pepcid as needed -Essential hypertension Lopressor 100 mg twice a day. 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 Disposition: Plan - Discharge Summary Discharge Rx Participant: No New Discharge Prescriptions: New Diltiazem Cd [Cardizem CD] 180 mg PO DAILY #30 cap Cefuroxime Axetil [Ceftin] 500 mg PO BID #6 tab Nicotine 21Mg/24Hr Patch [Habitrol] 1 patch TRANSDERM DAILY #14 patch Famotidine [Pepcid] 20 mg PO BID #60 tab predniSONE 10 mg PO DAILY #30 tab Budesonide/Formoterol Fumarate [Symbicort 80-4.5 Mcg Inhaler] 2 puff INHALATION BID #10.8 gm Continue LORazepam [Ativan] 0.5 mg PO BID PRN PRN Reason: Anxiety Warfarin [Coumadin] 2.5 mg PO Q48H Warfarin Sodium [Jantoven] 1.25 mg PO Q48H Budesonide-Formot 160-4.5 Mcg [Symbicort 160-4.5 Mcg Inhaler] 2 puff INHALATION RT-BID Isosorbide Mononitrate ER [Imdur] 30 mg PO DAILY ALPRAZolam [Xanax] 0.5 mg PO HS PRN PRN Reason: Insomnia Albuterol Inhaler [Ventolin Hfa Inhaler] 2 puff INHALATION RT-QID PRN PRN Reason: Shortness Of Breath Metoprolol Tartrate [Lopressor] 100 mg PO BID Acetaminophen Tab [Tylenol] 1,000 mg PO BID Atorvastatin [Lipitor] 40 mg PO HS Losartan [Cozaar] 50 mg PO DAILY Ipratropium-Albuterol Nebulize [Duoneb 0.5 mg-3 mg/3 ml Soln] 3 ml INHALATION RT-TID Changed Furosemide [Lasix] 40 mg PO DAILY #0 Discontinued Diltiazem Oral [Cardizem Oral] 30 mg PO BID Discharge Medication List LORazepam [Ativan] 0.5 mg PO BID PRN 09/15/18 [History] Warfarin Sodium [Jantoven] 1.25 mg PO Q48H 11/06/20 [History] Warfarin [Coumadin] 2.5 mg PO Q48H 11/06/20 [History] Albuterol Inhaler [Ventolin Hfa Inhaler] 2 puff INHALATION RT-QID PRN 03/20/21 [History] Budesonide-Formot 160-4.5 Mcg [Symbicort 160-4.5 Mcg Inhaler] 2 puff INHALATION RT-BID 03/20/21 [History] Isosorbide Mononitrate ER [Imdur] 30 mg PO DAILY 03/20/21 [History] Metoprolol Tartrate [Lopressor] 100 mg PO BID 03/20/21 [History] Acetaminophen Tab [Tylenol] 1,000 mg PO BID 07/21/21 [History] Atorvastatin [Lipitor] 40 mg PO HS 08/10/21 [History] ALPRAZolam [Xanax] 0.5 mg PO HS PRN 11/09/21 [History] Ipratropium-Albuterol Nebulize [Duoneb 0.5 mg-3 mg/3 ml Soln] 3 ml INHALATION RT-TID 11/09/21 [History] Losartan [Cozaar] 50 mg PO DAILY 11/09/21 [History] Budesonide/Formoterol Fumarate [Symbicort 80-4.5 Mcg Inhaler] 2 puff INHALATION BID #10.8 gm 11/13/21 [Rx] Cefuroxime Axetil [Ceftin] 500 mg PO BID #6 tab 11/13/21 [Rx] Diltiazem Cd [Cardizem CD] 180 mg PO DAILY #30 cap 11/13/21 [Rx] Famotidine [Pepcid] 20 mg PO BID #60 tab 11/13/21 [Rx] Furosemide [Lasix] 40 mg PO DAILY #0 11/13/21 [Rx] Nicotine 21Mg/24Hr Patch [Habitrol] 1 patch TRANSDERM DAILY #14 patch 11/13/21 [Rx] predniSONE 10 mg PO DAILY #30 tab 11/13/21 [Rx] Follow up Appointment(s)/Referral(s): Pavel Manzanares MD [STAFF PHYSICIAN] - 11/20/21 3:00 pm Benny Cohn MD [Primary Care Provider] - 1-2 days [facility], [NON-STAFF] - Patient Instructions/Handouts: Community Acquired Pneumonia (DC) Discharge Disposition: HOME SELF-CARE
[2021-11-13] MEDS ORDERED: WARFARIN 0.5 MG TAB PO ONE (18:00)
== END 2021-11-13 14:40 | disposition home or self-care (01) ==
LOC: EC 10:35 → INTOOBSV 13:54 → 3SCARD 13:54 → UNDODISIN 11-13 14:40
PROVIDERS: ADMIT Hospitalist; ATTEND Hospitalist
DX: I48.19 Other persistent atrial fibrillation (principal); J18.9 Pneumonia, unspecified organism; J44.0 Chronic obstructive pulmonary disease with (acute) lower respiratory infection; J44.1 Chronic obstructive pulmonary disease with (acute) exacerbation; I42.9 Cardiomyopathy, unspecified; E78.5 Hyperlipidemia, unspecified; I10 Essential (primary) hypertension; K21.9 Gastro-esophageal reflux disease without esophagitis; I69.311 Memory deficit following cerebral infarction; F41.9 Anxiety disorder, unspecified; E83.42 Hypomagnesemia; I25.10 Atherosclerotic heart disease of native coronary artery without angina pectoris; M19.012 Primary osteoarthritis, left shoulder; E87.8 Other disorders of electrolyte and fluid balance, not elsewhere classified; F17.210 Nicotine dependence, cigarettes, uncomplicated; M54.2 Cervicalgia; M79.602 Pain in left arm; Z20.822 Contact with and (suspected) exposure to COVID-19; Z79.01 Long term (current) use of anticoagulants; Z79.51 Long term (current) use of inhaled steroids; Z79.899 Other long term (current) drug therapy; Z88.2 Allergy status to sulfonamides; Z88.8 Allergy status to other drugs, medicaments and biological substances; Z91.048 Other nonmedicinal substance allergy status; Z86.79 Personal history of other diseases of the circulatory system; Z90.49 Acquired absence of other specified parts of digestive tract; Z90.710 Acquired absence of both cervix and uterus; Z98.890 Other specified postprocedural states; W19.XXXA Unspecified fall, initial encounter
CPT/HCPCS: 96376 ×2; 96361 ×2; 96366 ×4; 96367; 96375; 96368; 96365; 99285; 36415; 94640 ×10; 94760 ×3; 93005; 97162; 80051; 80053; 80048 ×2; 83605; 83735 ×2; 84484 ×2; 85025 ×2; 85610 ×5; 85730; 81001; 87040; 87635; 73060; 71046 ×2; 72125; 70450; G0378 ×5; S4990 ×4; J3480; J0456; J0696 ×6; J1160; J3475; J7512 ×4